=== PATIENT | male | born 1950 | race Caucasian/White ===

== ENCOUNTER 2022-10-23 09:04 | Day surgery (SDC) | payer OTHER, SELFPAY ==
[2022-10-23] VITALS (7 sets, daily range): BP systolic 108–167; BP diastolic 62–79; PULSE 55–82; RESP 16–20; TEMP 36.1–36.8; O2SAT 96–98; BMI 25.0
[2022-10-23 09:38] LABS: Glucose, Whole Blood 274 mg/dL (60-115)
[2022-10-23] MEDS: Lactated Ringers 1,000 ML 100 ML IVCONT (09:52)
[2022-10-23] MEDS: Insulin Lispro 100 UNIT/ML 3 ML VIAL SUBCUT (09:52)
--- NOTE | 2022-10-23 10:01 | P.CONAN_ITS ---
[facility] Past Medical History Medical History (Updated 10/22/22 @ 13:19 by Jeri Lowe RN) Carotid arterial disease Coronary artery disease Diabetes Elevated cholesterol HFrEF (heart failure with reduced ejection fraction) HTN (hypertension) ICD (implantable cardioverter-defibrillator) in place Insulin pump in place Peripheral artery disease TIA (transient ischemic attack) Family History Family history of problems with anesthesia: No Surgical History Surgical History (Updated 10/22/22 @ 13:19 by Jeri Lowe RN) History of intravascular stent placement History of left-sided carotid endarterectomy Hx of CABG History of Problems with Anesthesia: No Social History Social History Patient Tobacco Use Status: Former Tobacco user Are you DNR?: No Advance Directives: No Advance Directives Information Provided: Yes Recently lost weight without trying: Yes How much weight loss: 24-33 pounds Meds Allergies Allergy/AdvReac Type Severity Reaction Status Date / Time Sulfa (Sulfonamide Allergy Unknown Verified 10/22/22 13:26 Antibiotics) Active Medications: Current Medications Lactated Ringer's (Lr) 1,000 mls @ 100 mls/hr IVCONT .Q10H RADHA Last Admin: 10/23/22 09:52 Dose: 100 mls/hr Home Medications Medication Instructions Recorded Confirmed Last Taken Type Novolog U-100 Insulin aspart 90 units subcut (via wearable 10/22/22 10/22/22 Unknown History injectr) DAILY amlodipine 5 mg tablet 5 mg PO DAILY 10/22/22 10/22/22 10/23/22 History aspirin 81 mg tablet,delayed 81 mg PO DAILY 10/22/22 10/22/22 10/15/22 History release cetirizine 10 mg tablet 10 mg PO DAILY 10/22/22 10/22/22 Unknown History clopidogrel 75 mg tablet 75 mg PO DAILY 10/22/22 10/22/22 10/15/22 History docusate sodium 100 mg capsule 100 mg PO BID 10/22/22 10/22/22 Unknown History fluticasone propionate 50 1 spray intranasal DAILY 10/22/22 10/22/22 Unknown History mcg/actuation nasal spray,suspension furosemide 20 mg tablet 20 mg PO DAILY 10/22/22 10/22/22 Unknown History lisinopril 20 mg tablet 10 mg 10/22/22 Unknown History metoprolol succinate 50 mg 25 mg PO 10/22/22 10/22/22 Unknown History tablet,extended release 24 hr rosuvastatin 20 mg tablet 20 mg PO DAILY 10/22/22 10/22/22 Unknown History Exam Exam Date and Time: October 23, 2022 1001 Height,Weight and Vital Signs: Height 6 ft 2 in Weight 88.451 kg Last Vital Signs Temp 96.9 F 10/23/22 09:34 Pulse 82 10/23/22 09:34 Resp 20 10/23/22 09:34 BP 167/73 H 10/23/22 09:34 Pulse Ox 97 10/23/22 09:34 O2 Del Method Room Air 10/23/22 09:34 Pertinent Lab Results Pertinent Lab Results: Laboratory Tests 10/23/22 09:35 POC Glucose 274 H Airway Mallampati Class: III TM Dist: >3cm Neck ROM: Full Assessment and Plan Assessment Anesthesia Assessment: Anesthesia Plan Discussed and Chart Reviewed Final Anesthetic Review Family History of Problems with Anesthesia: No History of Problems with Anesthesia: No NPO: Yes ASA Class: III Final Preanesthetic Review: No Changes in Pt Med Stat, Meds/Allgs Chart Reviewed, Consent Obtained/Reviewed and Anes Risks/Benef Reviewed Patient Risk: High Procedure Risk: Low Anesthetic Plan Anesthetic Plan: MAC: Disposition: Standard PACU
--- NOTE | 2022-10-23 10:33 | MHC.SHP ---
Pre-Procedural Eval Section A Date of Service: 10/23/22 The patient is an INPATIENT: No Changes since office visit: No Cold of Flu in the past 2 weeks, No New Medical Problems, No Changes in Medication and No Patient answered all questions The History & Physical has been completed within 30 days and I have reviewed it.: Yes Section B Chief Complaint: Hemorrhage of anus and rectum Allergies: Allergies Allergy/AdvReac Type Severity Reaction Status Date / Time Sulfa (Sulfonamide Allergy Unknown Verified 10/22/22 13:26 Antibiotics) Plan I have reviewed the history and physical and performed a pertinent physical examination on my patient. No changes have occurred unless specified. Time Spent With Patient Time: Total time managing care of this patient today ____ minutes.
--- NOTE | 2022-10-23 11:51 | P.BOP_ITS ---
Brief Operative Note Date of Service: 10/23/22 Pre-op diagnosis: gi bleeding rectal mass Post-op diagnosis: same Procedure: colonoscopy Surgeon: Zach Pereira Anesthesia: MAC Was an Parts Product Analyst used for this Procedure?: No Estimated blood loss (mL): 25 Pathology: other Condition: stable Disposition: PACU
--- NOTE | 2022-10-23 12:07 | OP_ITS ---
DATE OF SERVICE: 10/23/2022 SURGEON: Zach Pereira MD INDICATIONS: Rectal bleeding and rectal mass palpated on digital examination. PREOPERATIVE DIAGNOSIS: POSTOPERATIVE DIAGNOSIS: PROCEDURE PERFORMED: Colonoscopy to the terminal ileum with biopsy and snare polypectomy. ESTIMATED BLOOD LOSS: COMPLICATIONS: ANESTHESIA: Monitored anesthesia care. ASSISTANTS: SPECIMENS: DESCRIPTION OF PROCEDURE: A history and physical were performed. The risks and benefits of the procedure were explained to the patient. Informed consent was obtained. The patient was placed in the left lateral decubitus position. A digital rectal exam was remarkable for a palpable rectal mass, measuring approximately 2.5 cm, involving the distal anus and rectum at the 9 o'clock position. The Olympus pediatric video colonoscope was introduced into the rectum and advanced to the cecum. The cecum was identified by transillumination, palpation, and identification of ileocecal valve. Examination was performed and the scope was removed. He tolerated the procedure well and was taken to recovery room in stable condition. FINDINGS: The terminal ileum was examined and appeared normal. The visualized colonic mucosa was normal. Multiple polyps were present. In the cecum was a 6 mm polyp, removed with a cold snare; at 70 cm was a 5 mm polyp also removed with a cold snare. The polyp measuring approximately 10 mm at 30 cm was removed with a hot snare. The rectal mass was identified endoscopically. This appeared to involve the last part of the rectum to the anal sphincter. There was associated heaped up mucosa and ulceration and some oozing prior to any biopsies being obtained. Multiple biopsies were obtained from the lesion. There was some oozing at the end of the procedure that was controlled with cautery, using the tip of the snare and the gold probe. IMPRESSION: 1. Colon polyps. 2. Rectal mass. RECOMMENDATION: Follow up the biopsy results. MD JOSE Rocha/HILARIO / [id number]
== END 2022-10-23 13:35 | disposition home or self-care (01) ==
PROVIDERS: PCP Internal Medicine; Visit Provider Internal Medicine Gastroenterology
PROC: 0DJD8ZZ Inspection of Lower Intestinal Tract, Via Natural or Artificial Opening Endoscopic (ICD-10-PCS; CPT 45378; principal; 2022-10-23 10:10)
DX: K62.5 Hemorrhage of anus and rectum (principal); C20 Malignant neoplasm of rectum; D12.6 Benign neoplasm of colon, unspecified; E11.9 Type 2 diabetes mellitus without complications; I11.0 Hypertensive heart disease with heart failure; I50.20 Unspecified systolic (congestive) heart failure; Z79.82 Long term (current) use of aspirin; Z79.899 Other long term (current) drug therapy; Z96.41 Presence of insulin pump (external) (internal); Z88.2 Allergy status to sulfonamides
CPT/HCPCS: 45385; 45380; 82947; 88305; 88341; 88342

== ENCOUNTER → 2022-10-30 11:15 | Outpatient (BNV) | payer MEDICARE, MEDICAID, SELFPAY | PROVIDERS: PCP Internal Medicine; Visit Provider Internal Medicine Medical Oncology | DX: C20 Malignant neoplasm of rectum (principal) | CPT/HCPCS: 99204; 99214 ==

== ENCOUNTER 2022-11-05 14:03 | Outpatient (AMB) | payer OTHER, SELFPAY ==
[2022-11-05 14:14] VITALS: BP 106/53; PULSE 71
--- NOTE | 2022-11-05 14:14 | MHC.OFFVIS ---
Intake Vital Signs 11/05/22 14:14 Height 6 ft 2 in BP 106/53 L Blood Pressure Location Rt brachial Position Sitting Pulse 71 Intake Visit Reasons: rectal carcinoma Intake Note: This patient presents for an assessment for rectal carcinoma. Patient c/o; rectal pain, painful bowel movements, rectal bleeding, weight lost, describes feeling weakness, pain. [employer] Required: No Accompanied by: Self / Same As Patient Allergies Sulfa (Sulfonamide Antibiotics) Allergy (Verified 10/30/22 11:26) Unknown Medication List - Last Reviewed 11/05/22 by CLAUS Pate amlodipine 5 mg PO DAILY aspirin 81 mg PO DAILY cetirizine 10 mg PO DAILY clopidogrel 75 mg PO DAILY docusate sodium 100 mg PO BID fluticasone propionate 50 mcg/actuation 1 spray intranasal DAILY furosemide 20 mg PO DAILY lisinopril 10 mg PO DAILY metoprolol succinate ER 25 mg PO DAILY [Novolog U-100 Insulin aspart 90 multiple units subcut (via wearable injectr) DAILY] oxycodone-acetaminophen 5-325 mg (Percocet) 1 tab PO Q6H PRN rosuvastatin 20 mg PO DAILY HPI rectal carcinoma HPI Details 52-year-old male here for a squamous cell carcinoma of the rectum. He says that he has been feeling unwell for about 6 months now. He describes this as some vague weakness and malaise. He says that for about the past 3-4 months, he has been feeling in in the rectum. He had been noticing some passage of blood per rectum as long as increasing pain with bowel movements. He eventually had colonoscopy done by Dr. Pereira last 10/23/2022. This showed a mass in the anorectal area biopsy showed squamous cell carcinoma. He was therefore referred to me. He is a known diabetic and he says that he has been a diabetic for 30 years. He has had increasing weakness overall and says he now uses a wheelchair for when he gets out of the house although he does walk slowly within the house. He says he may have lost about 40 lb the past 6 months. [facility] Medical History (Updated 11/05/22 @ 15:56 by Leonardo Ma MD) Carotid arterial disease Coronary artery disease Diabetes Elevated cholesterol HFrEF (heart failure with reduced ejection fraction) HTN (hypertension) ICD (implantable cardioverter-defibrillator) in place Insulin pump in place Peripheral artery disease Squamous cell carcinoma of rectum TIA (transient ischemic attack) Surgical History History of intravascular stent placement History of left-sided carotid endarterectomy Hx of CABG Family History Father Mother Social History Household Members: None Patient Tobacco Use Status: Never used Tobacco service: Yes ([employer]) Current occupational status: retired Review of Systems Const Denies chills and Denies fever(s) Card Denies chest pain, Denies dyspnea and Reports dyspnea on exertion Resp Denies cough, Denies dyspnea and Reports dyspnea on exertion GI Reports hematochezia and Reports change in bowel habits Denies hematuria and Denies difficulty urinating Musc Denies back pain and Denies limited range of motion Neuro Denies focal weakness and Denies convulsions Psych Denies depression and Denies mood swings Physical Exam Vital Signs: Last Vital Signs Pulse 71 11/05/22 14:14 BP 106/53 L 11/05/22 14:14 Const Other: On wheelchair but able to get up, appears very frail General: comfortable Resp Effort & Inspection: normal respiratory effort Cardio Rhythm: abnormal rhythm GI Other: Rectal exam - induration on the left anal verge, about 2 cm, very tender so I was unable to do a rectal exam or digital exam/anoscopy Palpation (GI): Soft to palpation, not firm and nontender Assessment & Plan Assessment & Plan (1) Squamous cell carcinoma of rectum: Code(s): C20 - Malignant neoplasm of rectum Plan: He has significant pain and tenderness in the rectum with the tumor in the anorectal area. Biopsies have shown a squamous cell carcinoma. Examination of his anal orifice shows an induration on the anal verge that appears to be extension of his tumor. Primary treatment would be radiation and chemotherapy. I will discuss this with Dr. Colmenares who is his oncologist I am going to order for an MRI of his anus and rectum. He says that enrique had a CT scan about 2 months ago and I am going to try to retrieve this as this was done in [facility]. He is actually scheduled to have a repeat CT scan in 3 days so I will going to review this as well. I will write him for some pain medications for now. Medications: New oxycodone-acetaminophen 5-325 mg (Percocet) Partial Fill upon patient request. 1 tab PO Q6H PRN 30 tabs 0RF pain Coding Level of Care Code New Pt Level 4 (93754) Diagnoses Squamous cell carcinoma of rectum C20
== END 2022-11-05 16:45 | disposition home or self-care (01) ==
PROVIDERS: PCP Internal Medicine; Visit Provider Surgery
DX: C20 Malignant neoplasm of rectum (principal)
CPT/HCPCS: 99204

== ENCOUNTER → 2022-11-05 14:03 | Outpatient (BNVA) | payer OTHER, SELFPAY | PROVIDERS: PCP Internal Medicine; Visit Provider Surgery | DX: C20 Malignant neoplasm of rectum (principal) | CPT/HCPCS: 99202 ==

== ENCOUNTER 2022-11-08 10:00 | Outpatient (REF) | payer OTHER, SELFPAY ==
--- NOTE | ~2022-11-08 | CT_ITS ---
EXAMINATION: CT CHEST, ABDOMEN AND PELVIS WITH CONTRAST CLINICAL INFORMATION: History of rectal cancer. Initial staging evaluation. COMPARISON: 08/04/2021 TECHNIQUE: Multidetector volumetric imaging was performed of the chest, abdomen and pelvis following administration of 85 mL Omnipaque 350 intravenous contrast. Oral contrast was administered. Sagittal and coronal reformatted images were obtained on the technologist's workstation. This CT examination was performed using dose optimization techniques as appropriate, variously including the following: *Automated exposure control *Adjustment of mA and/or kV according to patient size (this includes techniques or standardized protocols for targeted exams where dose is matched to indication/reason for exam; i.e. extremities or head) *Use of iterative reconstruction technique DLP: 161 mGy-cm FINDINGS: CHEST: AXILLA: No lymphadenopathy. MEDIASTINUM: Postsurgical changes of the heart. No mediastinal lymphadenopathy. No hilar lymphadenopathy. No pericardial effusion. CORONARY ARTERY CALCIFICATION: Severe. PLEURA: There is no pleural effusion. LUNGS: Right apical scarring with traction bronchiectasis bronchial wall thickening. Centrilobular emphysema. 6 mm subpleural nodule left upper lobe on image 89. 3 mm nodule left upper lobe on image 170. 3 mm nodule left upper lobe on image 205. 3 mm nodule left upper lobe on image 221. Central airways are patent. ABDOMEN AND PELVIS: ABDOMINAL AND PELVIC WALL: Unremarkable. LIVER AND BILIARY TREE: The liver is normal in size and contour. 5 mm hypodensity too small to characterize. No biliary ductal dilatation. GALLBLADDER: Unremarkable. PANCREAS: Parenchymal calcifications. Diffuse atrophy. Calcified collection measuring 5.0 x 7.1 cm likely representing a chronic pseudocyst. SPLEEN: Not enlarged. ADRENAL GLANDS: No adrenal mass. KIDNEYS AND URETERS: The kidneys are symmetric in size and enhancement. 2 mm nonobstructing calculus lower pole right kidney. 5 mm nonobstructing calculus lower pole left kidney. 8 mm hypodensity too small to characterize lower pole left kidney. No hydronephrosis or perinephric stranding. GASTROINTESTINAL TRACT: There is irregular rectal wall thickening and mucosal hyperenhancement. Copious stool throughout the colon. No small bowel obstruction. Appendix is within normal limits. VASCULAR: Marked atherosclerotic changes of the abdominal aorta and major branch vessels. Severe atherosclerotic changes extensive atheromatous plaque of the superior mesenteric artery. Severe calcifications at the origin of bilateral renal arteries. No abdominal aortic aneurysm. LYMPH NODES: No bulky abdominal or pelvic lymphadenopathy. FREE FLUID: No free fluid. BLADDER: Unremarkable. PELVIC VISCERA: Enlarged prostate gland. OSSEOUS STRUCTURES: Moderate height loss of T9 vertebral body. Prior median sternotomy. CT/CT abdomen pelvis w IV con IMPRESSION: Irregular rectal wall thickening and mucosal hyperenhancement. Constipation. Chronic pancreatitis with likely chronic pseudocyst measuring 5.0 x 7.1 cm. Severe atherosclerotic changes and extensive atheromatous plaque of the superior mesenteric artery. Severe calcification at the origin of bilateral renal arteries. This study was not optimally performed to evaluate the vasculature. CTA would provide a better assessment. Pulmonary nodules measuring up to 6 mm. Follow-up chest CT in 3-6 months is advised. Bilateral nonobstructing renal calculi.
[2022-11-08] MEDS: iohexoL 350 MG/ML 100 ML INFUS..BTL 85 ML IV (12:31)
[2022-11-08] MEDS: Barium Sulfate Oral (Berry) 450 ML ORAL.SUSP 850 ML PO (12:32)
== END 2022-11-08 10:01 | disposition home or self-care (01) ==
LOC: HO.CT 10:00
PROVIDERS: PCP Internal Medicine; Visit Provider Internal Medicine Medical Oncology
DX: C20 Malignant neoplasm of rectum (principal)
CPT/HCPCS: 71260; 74177; Q9967

== ENCOUNTER 2022-12-07 10:58 | Outpatient (AMB) | payer OTHER, SELFPAY ==
--- NOTE | 2022-12-07 05:37 | MHC.OFFVIS ---
Intake Intake Visit Reasons: Prostatomegaly Intake Note: NEW Patient presents today to established treatment for Prostatomegaly: Meds- None Allergies to Antibiotic- Sulfa Blood Thinner- Aspirin & Furosemide PVR- 0 mL Tennis Instructor Required: No Accompanied by: Friend Allergies Sulfa (Sulfonamide Antibiotics) Allergy (Verified 12/07/22 11:10) Unknown HPI HPI Comments History of Present Illness Details Serafin is a 72-year-old male who presents today to the office to establish as a new patient for an evaluation of prostatomegaly. 12/07/2022? Serafni is present today for an evaluation of prostatomegaly. 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 I reviewed CT of the abdomen/pelvis results from 11/08/2022 revealed Irregular rectal wall thickening and mucosal hyperenhancement. Chronic pancreatitis with likely chronic pseudocyst measuring 5.0 x 7.1 cm. Severe atherosclerotic changes and extensive atheromatous plaque of the superior mesenteric artery. Severe calcification at the origin of bilateral renal arteries. This study was not optimally performed to evaluate the vasculature.? CTA would provide a better assessment. Pulmonary nodules measuring up to 6 mm. Bilateral nonobstructing renal calculi. He was diagnosed with colon cancer. He denies any troubles urinating. He denies any family history of prostate cancer. He is taking amlodipine for hypertension, and insulin for diabetes. Evaluation today?UA? leukocyte: negative; blood: negative. Post-void residual: 0 mL. Plan: PSA screening was ordered. Tele-health follow-up in 3 weeks to discuss the results. [facility] Medical History Carotid arterial disease Coronary artery disease Diabetes Elevated cholesterol HFrEF (heart failure with reduced ejection fraction) HTN (hypertension) ICD (implantable cardioverter-defibrillator) in place Insulin pump in place Peripheral artery disease Squamous cell carcinoma of rectum TIA (transient ischemic attack) Surgical History History of intravascular stent placement History of left-sided carotid endarterectomy Hx of CABG Family History Father Mother Social History Household Members: None Patient Tobacco Use Status: Never used Tobacco service: Yes ([employer]) Current occupational status: retired Review of Systems Const All systems reviewed & are unremarkable except as noted in HPI and below Reports no additional complaints Eyes Reports no additional complaints ENT Reports no additional complaints Card Denies dyspnea Resp Denies cough and Denies dyspnea GI Reports no additional complaints Musc Reports no additional complaints Skin/Breast Denies rash and Denies unusual bruising Neuro Reports no additional complaints Psych Reports no additional complaints Endo Reports no additional complaints Sajan/Lymph Reports no additional complaints Aller/Immun Reports no additional complaints Physical Exam Const General: healthy appearing, no acute distress and well developed Orientation/consciousness: patient oriented x3 HEENT Head: Yes normocephalic and Yes atraumatic Eyes Conjunctivae: conjunctivae normal Neck Neck: Yes normal visual inspection Chest Chest palpation & inspection: normal inspection of the chest Resp Effort & Inspection: normal respiratory effort Cardio Rate: regular rate GI Inspection: Yes normal to inspection Palpation (GI): Soft to palpation Skin General skin exam: no rashes or lesions noted Neuro General: patient oriented x3 Extrem General: No pedal edema Psych Appearance: grossly normal Affect: normal affect Office Procedures Post Void Residual Post Residual Void Post Void Residual (PVR): 0 55146-[id number] Void Residual by ultrasound Results AMB Urinalysis, Automated UA Leukoctes 0 Rosey/uL Last Edit by Lizy Kaba CMA on 12/07/22 11:23 UA Nitrite Negative Last Edit by Lizy Kaba CMA on 12/07/22 11:23 UA Urobilinogen 0.2 mg/dL Last Edit by Lizy Kaba CMA on 12/07/22 11:23 UA Protein 15 mg/dL Last Edit by Lizy Kaba CMA on 12/07/22 11:23 UA pH 6.0 Last Edit by Lizy Kaba CMA on 12/07/22 11:23 UA Blood 0 Sebas/uL Last Edit by Lizy Kaba CMA on 12/07/22 11:23 UA Specific [place] 1.030 Last Edit by Lizy Kaba CMA on 12/07/22 11:23 UA Ketone Positive Last Edit by Lizy Kaba CMA on 12/07/22 11:23 5 mg/dL Lizy Kaba 12/07/22 11:23 UA Bilirubin 0 mg/dL Last Edit by Lizy Kaba CMA on 12/07/22 11:23 UA Glucose 500 mg/dL Last Edit by Lizy Kaba CMA on 12/07/22 11:23 2+ Lizy Kaba 12/07/22 11:23 Results Reviewed Results Reviewed: Laboratory Last Values Urine pH (Auto) 6.0 12/07/22 11:21 Specific [place] (Auto) 1.030 12/07/22 11:21 Urine Protein (Auto) 15 mg/dL 12/07/22 11:21 Glucose (UA)(Auto) 500 mg/dL 12/07/22 11:21 Urine Ketones (Auto) Positive 12/07/22 11:21 Urine Blood (Auto) 0 Sebas/uL 12/07/22 11:21 Urine Nitrite (Auto) Negative 12/07/22 11:21 Urine Bilirubin (Auto) 0 mg/dL 12/07/22 11:21 Urine Urobilinogen (Auto) 0.2 mg/dL 12/07/22 11:21 Leukocyte Esterase (Auto) 0 Rosey/uL 12/07/22 11:21 Date of Service: 11/08/22 EXAMINATION: CT CHEST, ABDOMEN AND PELVIS WITH CONTRAST CLINICAL INFORMATION: History of rectal cancer. Initial staging evaluation.? COMPARISON: 08/04/2021 FINDINGS: CHEST: AXILLA: No lymphadenopathy.? MEDIASTINUM:? Postsurgical changes of the heart. No mediastinal lymphadenopathy.? No hilar lymphadenopathy. No pericardial effusion. CORONARY ARTERY CALCIFICATION: Severe. PLEURA: There is no pleural effusion.? LUNGS: Right apical scarring with traction bronchiectasis bronchial wall thickening. Centrilobular emphysema. 6 mm subpleural nodule left upper lobe on image 89. 3 mm nodule left upper lobe on image 170. 3 mm nodule left upper lobe on image 205. 3 mm nodule left upper lobe on image 221. Central airways are patent.? ABDOMEN AND PELVIS: ABDOMINAL AND PELVIC WALL:? Unremarkable.? LIVER AND BILIARY TREE: The liver is normal in size and contour. 5 mm hypodensity too small to characterize. No biliary ductal dilatation. GALLBLADDER: Unremarkable.? PANCREAS: Parenchymal calcifications. Diffuse atrophy. Calcified collection measuring 5.0 x 7.1 cm likely representing a chronic pseudocyst. SPLEEN: Not enlarged. ADRENAL GLANDS: No adrenal mass. KIDNEYS AND URETERS: The kidneys are symmetric in size and enhancement. 2 mm nonobstructing calculus lower pole right kidney. 5 mm nonobstructing calculus lower pole left kidney. 8 mm hypodensity too small to characterize lower pole left kidney. No hydronephrosis or perinephric stranding. GASTROINTESTINAL TRACT: There is irregular rectal wall thickening and mucosal hyperenhancement. Copious stool throughout the colon. No small bowel obstruction. Appendix is within normal limits. VASCULAR: Marked atherosclerotic changes of the abdominal aorta and major branch vessels. Severe atherosclerotic changes extensive atheromatous plaque of the superior mesenteric artery. Severe calcifications at the origin of bilateral renal arteries. No abdominal aortic aneurysm. LYMPH NODES: No bulky abdominal or pelvic lymphadenopathy. FREE FLUID: No free fluid. BLADDER: Unremarkable.? PELVIC VISCERA: Enlarged prostate gland. OSSEOUS STRUCTURES: Moderate height loss of T9 vertebral body. Prior median sternotomy. IMPRESSION: Irregular rectal wall thickening and mucosal hyperenhancement. Constipation. Chronic pancreatitis with likely chronic pseudocyst measuring 5.0 x 7.1 cm. Severe atherosclerotic changes and extensive atheromatous plaque of the superior mesenteric artery. Severe calcification at the origin of bilateral renal arteries. This study was not optimally performed to evaluate the vasculature. CTA would provide a better assessment. Pulmonary nodules measuring up to 6 mm. Follow-up chest CT in 3-6 months is advised. Bilateral nonobstructing renal calculi. Assessment & Plan Assessment & Plan (1) Screening PSA (prostate specific antigen): Code(s): Z12.5 - Encounter for screening for malignant neoplasm of prostate (2) Enlarged prostate: Code(s): N40.0 - Benign prostatic hyperplasia without lower urinary tract symptoms Plan PSA screening was ordered. Tele-health follow-up in 3 weeks to discuss the results. Orders: Orders AMB Urinalysis Automated 12/07/22 N39.0 - Urinary tract infection, site not specified, A49.9 - Bacterial infection, unspecified PSA,Total (Free>4and<10) 12/07/22 Z12.5 - Encounter for screening for malignant neoplasm of prostate AMB Post Void Residual by ultrasound 12/07/22 N39.8 - Other specified disorders of urinary system Patient Instructions: The patient had an opportunity to ask questions regarding treatment plan. All questions were answered. Imaging, Laboratory studies and physical exam results were discussed and reviewed in detail. No major barriers to understanding were identified. The patient expressed understanding and agreement with the above treatment plan.? ? ? The patient is aware they should contact our office by phone for worsening of their current condition or the appearance of new symptoms. Compliance is encouraged with any medications and followup testing that is ordered.? ? ? It is a privilege to be allowed the opportunity to participate in the urologic care of your patient. If you have any questions or concerns regarding treatment for the above conditions please do not hesitate to contact me. The office telephone contact is [phone].? ? ? This note is constructed in part using voice recognition software. While every effort has been made to ensure accuracy funeral home associate errors may have been included.? ? ? Yours sincerely,? ? ? Brennan Lyons MD? Coding Level of Care Code New Pt Level 3 (06885) Diagnoses Screening PSA (prostate specific antigen) Z12.5 Enlarged prostate N40.0 CPT Codes Post Residual Void - PVR CPT Code: 10877-Fsiq Void Residual by ultrasound ([id number])
== END 2022-12-07 11:54 | disposition home or self-care (01) ==
PROVIDERS: PCP Internal Medicine; Visit Provider Urology
DX: Z12.5 Encounter for screening for malignant neoplasm of prostate (principal); N40.0 Benign prostatic hyperplasia without lower urinary tract symptoms
CPT/HCPCS: 99203

== ENCOUNTER → 2022-12-07 10:58 | Outpatient (BNVA) | payer OTHER, SELFPAY | PROVIDERS: PCP Internal Medicine; Visit Provider Urology | DX: N39.0 Urinary tract infection, site not specified (principal); A49.9 Bacterial infection, unspecified; N40.0 Benign prostatic hyperplasia without lower urinary tract symptoms; C20 Malignant neoplasm of rectum; Z12.5 Encounter for screening for malignant neoplasm of prostate | CPT/HCPCS: 51798; 81003; 99202 ==

== ENCOUNTER 2022-12-27 13:55 | Outpatient (AMB) | payer OTHER, SELFPAY ==
--- NOTE | 2022-12-27 13:53 | MHC.OFFVIS ---
Intake Intake Visit Reasons: follow up/labs Intake Note: Patient presents today for a follow-up on Labs Results, completed on 12/12/2022 at [facility]: Meds- Furosemide Allergies to Antibiotic- Sulfa Blood Thinner- Aspirin PSA- 4.8 ng/mL, 12/12/2022 Allergies Sulfa (Sulfonamide Antibiotics) Allergy (Verified 12/27/22 14:00) Unknown Medication List - Last Reconciled 12/27/22 by Brennan Lyons MD amlodipine 5 mg PO DAILY aspirin 81 mg PO DAILY cetirizine 10 mg PO DAILY clopidogrel 75 mg PO DAILY docusate sodium 100 mg PO BID finasteride (Proscar) 5 mg PO DAILY 90 days fluticasone propionate 50 mcg/actuation 1 spray intranasal DAILY furosemide 20 mg PO DAILY lisinopril 10 mg PO DAILY metoprolol succinate ER 25 mg PO DAILY [Novolog U-100 Insulin aspart 90 multiple units subcut (via wearable injectr) DAILY] ondansetron 8 mg PO Q8H oxycodone-acetaminophen 5-325 mg (Percocet) 1 tab PO Q6H PRN rosuvastatin 20 mg PO DAILY HPI HPI Comments History of Present Illness Details Serafin is a 72-year-old male who presents today via Tele-health visit for a follow-up. 12/27/2022? Serafin is a 72-year-old male recently diagnosed with squamous cell carcinoma of the rectum. He denies any family history of prostate cancer. He is taking amlodipine for hypertension, and insulin for diabetes. He was last seen by me on 12/07/2022 for enlarged prostate. PSA screening was ordered. I reviewed the PSA results from 12/12/2022 revealed 4.8 ng/mL, and with a percent free PSA of 15.7. Review of charts:? Last visit: 12/07/2022? CT of the abdomen/pelvis results from 11/08/2022 revealed --Bilateral nonobstructing renal calculi. Irregular rectal wall thickening and mucosal hyperenhancement. 12/27/2022: Plan: Start Proscar 5 mg daily. Repeat PSA in 6 months. [facility] Medical History Squamous cell carcinoma of rectum TIA (transient ischemic attack) Peripheral artery disease Carotid arterial disease HFrEF (heart failure with reduced ejection fraction) ICD (implantable cardioverter-defibrillator) in place Coronary artery disease Elevated cholesterol HTN (hypertension) Insulin pump in place Diabetes Surgical History History of intravascular stent placement History of left-sided carotid endarterectomy Hx of CABG Family History Father Mother Social History Household Members: None Patient Tobacco Use Status: Never used Tobacco service: Yes ([employer]) Current occupational status: retired Review of Systems Const All systems reviewed & are unremarkable except as noted in HPI and below Reports no additional complaints Eyes Reports no additional complaints ENT Denies neck pain Card Denies leg edema Resp Denies cough GI Denies constipation Musc Reports no additional complaints and Denies neck pain Skin/Breast Denies rash and Denies unusual bruising Neuro Reports no additional complaints Psych Reports no additional complaints Endo Reports no additional complaints Sajan/Lymph Reports no additional complaints Aller/Immun Reports no additional complaints Assessment & Plan Assessment & Plan (1) Enlarged prostate: Code(s): N40.0 - Benign prostatic hyperplasia without lower urinary tract symptoms Plan Start Proscar 5 mg daily. Repeat PSA in 6 months. Medications: New finasteride (Proscar) 5 mg PO DAILY 90 tabs 3RF 90 days C61 - Malignant neoplasm of prostate Patient Instructions: The patient had an opportunity to ask questions regarding treatment plan. All questions were answered. Imaging, Laboratory studies and physical exam results were discussed and reviewed in detail. No major barriers to understanding were identified. The patient expressed understanding and agreement with the above treatment plan.? ? ? The patient is aware they should contact our office by phone for worsening of their current condition or the appearance of new symptoms. Compliance is encouraged with any medications and followup testing that is ordered.? ? ? It is a privilege to be allowed the opportunity to participate in the urologic care of your patient. If you have any questions or concerns regarding treatment for the above conditions please do not hesitate to contact me. The office telephone contact is [phone].? ? ? This note is constructed in part using voice recognition software. While every effort has been made to ensure accuracy auto body repairer errors may have been included.? ? ? Yours sincerely,? ? ? Brennan Lyons MD? Telehealth Telehealth Location of provider rendering services: practice address Location of patient: address on file Patient Identification confirmed using: Name, : Yes Telehealth method: voice only Patient verbally consented to treatment: Yes Patient verbally consented to billing insurance company: Yes Patient informed of any privacy concerns related to visit: Yes Minutes spent on Phone/Video with Pt.: 15 Coding Level of Care Code Tele Est Pt Level 4 (91304) Diagnoses Enlarged prostate N40.0
== END 2022-12-27 14:44 | disposition home or self-care (01) ==
LOC: HO.HUSH 13:55
PROVIDERS: PCP Internal Medicine; Visit Provider Urology
DX: N40.0 Benign prostatic hyperplasia without lower urinary tract symptoms (principal)
CPT/HCPCS: 99214

== ENCOUNTER → 2022-12-27 13:55 | Outpatient (BNVA) | payer OTHER, SELFPAY | PROVIDERS: PCP Internal Medicine; Visit Provider Urology ==

== ENCOUNTER 2023-06-26 09:46 | Outpatient (REF) | payer OTHER, SELFPAY | END 2023-06-26 09:47 | disposition home or self-care (01) | LOC: HO.LAB 09:46 | PROVIDERS: PCP Internal Medicine; Visit Provider Urology | DX: Z12.5 Encounter for screening for malignant neoplasm of prostate (principal) | CPT/HCPCS: 36415; 84153 ==

== ENCOUNTER 2023-07-03 12:31 | Outpatient (AMB) | payer OTHER, SELFPAY ==
--- NOTE | 2023-07-03 12:51 | A.OFFVIS_ITS ---
Intake Intake Visit Reasons: 5m/PSA Intake Note: Patient presents today for a follow-up on PSA labs results: PSA- 0.30 ng/mL, 06/26/2023 Meds- Furosemide Allergies to Antibiotic- Sulfa Blood Thinner- Aspirin PVR 13 mL Central Office Trouble Shooter Required: No Accompanied by: Self / Same As Patient Allergies Sulfa (Sulfonamide Antibiotics) Allergy (Verified 07/03/23 12:53) Unknown Medication List - Last Reconciled 07/03/23 by Brennan Lyons MD amlodipine 5 mg PO DAILY aspirin 81 mg PO DAILY cetirizine 10 mg PO DAILY clopidogrel 75 mg PO DAILY docusate sodium 100 mg PO BID finasteride (Proscar) 5 mg PO DAILY 90 days fluticasone propionate 50 mcg/actuation 1 spray intranasal DAILY furosemide 20 mg PO DAILY lisinopril 10 mg PO DAILY metoprolol succinate ER 25 mg PO DAILY [Novolog U-100 Insulin aspart 90 multiple units subcut (via wearable injectr) DAILY] ondansetron 8 mg PO Q8H oxycodone-acetaminophen 5-325 mg (Percocet) 1 tab PO Q6H PRN rosuvastatin 20 mg PO DAILY HPI HPI Comments History of Present Illness Details 07/03/23--Serafin is a 72-year-old male who presents today for a follow-up PSA. The patient was last seen on 12/27/2022 and started on Proscar for BPH and elevated PSA. I have reviewed with him that of recent follow-up PSA performed on 06/26/2023 0.30. The patient denies any urinary complaints. Bladder scan PVR is 13 mL. Plan is to continue the proscar 5 mg daily and follow-up in 1 year with PSA screening and renal US. During today's visit the patient is enquiring on upgrading his insulin pump. I will refer him to Endocrine Review of chart: 12/27/2022? Serafin is a 72-year-old male recently diagnosed with squamous cell carcinoma of the rectum. He denies any family history of prostate cancer. He is taking amlodipine for hypertension, and insulin for diabetes. He was last seen by me on 12/07/2022 for enlarged prostate. PSA screening was ordered. I reviewed the PSA results from 12/12/2022 revealed 4.8 ng/mL, and with a percent free PSA of 15.7. Start Proscar 5 mg daily. Repeat PSA in 6 months. Last visit: 12/07/2022? CT of the abdomen/pelvis results from 11/08/2022 revealed --Bilateral nonobstructing renal calculi. Irregular rectal wall thickening and mucosal hyperenhancement. 07/03/2023-- Plan: Continue Proscar 5 mg daily. Referral to Endocrine. PSA screening and renal US in 1 year [facility] Medical History Squamous cell carcinoma of rectum TIA (transient ischemic attack) Peripheral artery disease Carotid arterial disease HFrEF (heart failure with reduced ejection fraction) ICD (implantable cardioverter-defibrillator) in place Coronary artery disease Elevated cholesterol HTN (hypertension) Insulin pump in place Diabetes Surgical History History of intravascular stent placement History of left-sided carotid endarterectomy Hx of CABG Family History Father Mother Social History Household Members: None Patient Tobacco Use Status: Never used Tobacco service: Yes ([employer]) Current occupational status: retired Review of Systems Const All systems reviewed & are unremarkable except as noted in HPI and below Reports no additional complaints Eyes Reports no additional complaints ENT Reports no additional complaints Card Denies dyspnea Resp Denies cough and Denies dyspnea GI Reports no additional complaints Musc Reports no additional complaints Skin/Breast Denies rash and Denies unusual bruising Neuro Reports no additional complaints Psych Reports no additional complaints Endo Reports no additional complaints Sajan/Lymph Reports no additional complaints Aller/Immun Reports no additional complaints Office Procedures Post Void Residual Post Residual Void Post Void Residual (PVR): 13 13810-Ritl Void Residual by ultrasound Results AMB Urinalysis, Automated UA Leukoctes 0 Rosey/uL Last Edit by Chuy Ibarra A on 07/03/23 13:17 UA Nitrite Negative Last Edit by Chuy Ibarra [facility] on 07/03/23 13:17 UA Urobilinogen 3.0 mg/dL Last Edit by Chuy Ibarra A on 07/03/23 13:1 7 UA Protein 15 mg/dL Last Edit by Chuy Ibarra [facility] on 07/03/23 13:17 UA pH 5.0 Last Edit by Chuy Ibarra A on 07/03/23 13:17 UA Blood 0 Sebas/uL Last Edit by Chuy Ibarra [facility] on 07/03/23 13:17 UA Specific [place] 1.025 Last Edit by Chuy Ibarra [facility] on 07/03/23 13: 17 UA Ketone Positive Last Edit by Chuy Ibarra [facility] on 07/03/23 13:17 UA Bilirubin 0 mg/dL Last Edit by Chuy Ibarra [facility] on 07/03/23 13:17 UA Glucose 0 mg/dL Last Edit by Chuy Ibarra [facility] on 07/03/23 13:17 Results Reviewed Results Reviewed: Laboratory Last Values Urine pH (Auto) 5.0 07/03/23 13:02 Specific [place] (Auto) 1.025 07/03/23 13:02 Urine Protein (Auto) 15 mg/dL 07/03/23 13:02 Glucose (UA)(Auto) 0 mg/dL 07/03/23 13:02 Urine Ketones (Auto) Positive 07/03/23 13:02 Urine Blood (Auto) 0 Sebas/uL 07/03/23 13:02 Urine Nitrite (Auto) Negative 07/03/23 13:02 Urine Bilirubin (Auto) 0 mg/dL 07/03/23 13:02 Urine Urobilinogen (Auto) 3.0 mg/dL 07/03/23 13:02 Leukocyte Esterase (Auto) 0 Rosey/uL 07/03/23 13:02 Assessment & Plan Assessment & Plan (1) Enlarged prostate: Code(s): N40.0 - Benign prostatic hyperplasia without lower urinary tract symptoms (2) Screening PSA (prostate specific antigen): Code(s): Z12.5 - Encounter for screening for malignant neoplasm of prostate (3) Diabetes: Code(s): E11.9 - Type 2 diabetes mellitus without complications (4) Bilateral kidney stones: Code(s): N20.0 - Calculus of kidney Plan Continue Proscar 5 mg daily. Referral to Endocrine. PSA screening in 1 year Orders: Orders AMB Post Void Residual by ultrasound Today N39.8 - Other specified disorders of urinary system AMB Urinalysis Automated Today Z13.9 - Encounter for screening, unspecified PSA,Total (Free>4and<10) 10 Months N40.0 - Benign prostatic hyperplasia without lower urinary tract symptoms, Z12.5 - Encounter for screening for malignant neoplasm of prostate US renal BI 10 Months N20.0 - Calculus of kidney Referrals Endocrinology Referral E11.9 - Type 2 diabetes mellitus without complications Medications: Refilled finasteride (Proscar) 5 mg PO DAILY 90 tabs 3RF 90 days C61 - Malignant neoplasm of prostate Patient Instructions: The patient had an opportunity to ask questions regarding treatment plan. All questions were answered. Laboratory studies and physical exam results were discussed and reviewed in detail. No major barriers to understanding were identified. The patient expressed understanding and agreement with the above treatment plan. The patient is aware they should contact our office by phone for worsening of their current condition or the appearance of new symptoms. Compliance is encouraged with any medications and followup testing that is ordered. It is a privilege to be allowed the opportunity to participate in the urologic care of your patient. If you have any questions or concerns regarding treatment for the above conditions please do not hesitate to contact me. The office telephone contact is [phone]. This note is constructed in part using voice recognition software. While every effort has been made to ensure accuracy subway car repairer errors may have been in cluded. Yours sincerely, Brennan Lyons MD Coding Level of Care Code Est Pt Level 4 (59058) Diagnoses Enlarged prostate N40.0 Screening PSA (prostate specific antigen) Z12.5 Diabetes E11.9 Bilateral kidney stones N20.0 CPT Codes Post Residual Void - PVR CPT Code: 70281-Asbg Void Residual by ultrasound ([id number])
== END 2023-07-03 13:57 | disposition home or self-care (01) ==
PROVIDERS: PCP Internal Medicine; Referring Provider Internal Medicine; Visit Provider Urology
DX: N40.0 Benign prostatic hyperplasia without lower urinary tract symptoms (principal); Z12.5 Encounter for screening for malignant neoplasm of prostate; E11.9 Type 2 diabetes mellitus without complications; N20.0 Calculus of kidney; Z13.9 Encounter for screening, unspecified
CPT/HCPCS: 99214

== ENCOUNTER → 2023-07-03 12:31 | Outpatient (BNVA) | payer OTHER, SELFPAY | PROVIDERS: PCP Internal Medicine; Visit Provider Urology | DX: N40.0 Benign prostatic hyperplasia without lower urinary tract symptoms (principal); N20.0 Calculus of kidney; E11.9 Type 2 diabetes mellitus without complications; Z12.5 Encounter for screening for malignant neoplasm of prostate | CPT/HCPCS: 51798; 81003; 99212 ==

== ENCOUNTER 2023-08-21 23:14 | Inpatient (IN) | payer OTHER, SELFPAY ==
--- NOTE | 2023-08-21 | ECG_ITS ---
Test Reason : WEAKNESS Blood Pressure : / mmHG Vent. Rate : 062 BPM Atrial Rate : 062 BPM P-R Int : 184 ms QRS Dur : 088 ms QT Int : 452 ms P-R-T Axes : -12 -75 107 degrees QTc Int : 458 ms Normal sinus rhythm Left anterior fascicular block Septal infarct , age undetermined Abnormal ECG No previous ECGs available Referred By: Generic ED Physician Electronically Signed By:Aleksandr Holland
--- NOTE | ~2023-08-21 | CT_ITS ---
EXAMINATION: CT ABDOMEN AND PELVIS WITH CONTRAST CLINICAL INFORMATION: Reason for Exam rectal mass on digital exam, hx colon ca COMPARISON: 11/08/2022 TECHNIQUE: Multidetector volumetric images were obtained from the superior aspect of the liver through the pubic symphysis following administration 85 mL of Omnipaque 350 intravenous contrast. Sagittal and coronal reformatted images were obtained on the technologist's workstation. Oral contrast: No This CT examination was performed using dose optimization techniques as appropriate, variously including the following: *Automated exposure control *Adjustment of mA and/or kV according to patient size (this includes techniques or standardized protocols for targeted exams where dose is matched to indication/reason for exam; i.e. extremities or head) *Use of iterative reconstruction technique DLP: 537 mGy-cm FINDINGS: LUNG BASES: Limited evaluation due to motion artifact. Small pleural effusions. There is also suggestion of a small amount of loculated fluid anteriorly at the left base. Subsegmental bibasilar atelectasis/scarring. Coronary artery calcifications are present. LIVER, GALLBLADDER, AND BILIARY TREE: Liver demonstrates heterogeneous attenuation. Subcentimeter hypodensity in the anterior left hepatic lobe is nonspecific and without malignant change from prior. No intrahepatic biliary ductal dilatation. Gallbladder is grossly unremarkable. PANCREAS: Pancreas appears diffusely atrophic with multiple calcifications, consistent with chronic pancreatitis. There is a redemonstrated peripherally calcified low-density structure in the region of the lesser sac measuring approximately 7.0 x 4.9 cm, without significant change from prior and suspicious for a pseudocyst. SPLEEN: Unremarkable. ADRENAL GLANDS: Unremarkable. KIDNEYS AND URETERS: There is a right ureterovesicular junction calculus measuring 4 mm without significant hydronephrosis. Bilateral nephrograms appear symmetric. No left hydronephrosis. BLADDER: Mildly distended with diffuse mural prominence. GASTROINTESTINAL TRACT: Large amount of stool is present throughout the colon. The distalmost rectum is collapsed which limits evaluation for wall thickening or mass. Perirectal stranding is noted. No abnormal small bowel dilation. The appendix is unremarkable. No free air is seen. ABDOMINAL WALL: No significant hernia is appreciated. LYMPH NODES: Normal. VASCULAR: There is atherosclerotic calcification along the aorta and iliac arteries. PELVIC VISCERA: Unremarkable. OSSEOUS STRUCTURES: Unremarkable. CT/CT abdomen pelvis w IV con IMPRESSION: 1. Large amount of stool throughout the colon. Distalmost rectum is collapsed which limits evaluation for wall thickening or mass. Given the amount of stool in the colon, the possibility of an obstructive process in the distal rectum cannot be excluded Perirectal stranding is noted, which could reflect stercoral colitis in the proper clinical setting. 2. Right ureterovesicular junction calculus measuring 4 mm without significant hydronephrosis. 3. Diffuse mural prominence of the urinary bladder, which could be due to underdistention versus cystitis. 4. Small pleural effusions. Suggestion of a small amount of loculated fluid anteriorly at the left lung base. 5. Redemonstrated peripherally calcified low-density structure in the region of the lesser sac, suspicious for a pseudocyst in the setting of chronic pancreatitis.
--- NOTE | ~2023-08-21 | CT_ITS ---
EXAMINATION: CT HEAD WITH CONTRAST CLINICAL INFORMATION: History of tumor resection. Difficulty COMPARISON: None available. TECHNIQUE: Contiguous axial imaging was performed from the skull base to vertex following the administration of 100 mL of Omnipaque [address] examination was performed using dose optimization techniques as appropriate, variously including the following: *Automated exposure control *Adjustment of mA and/or kV according to patient size (this includes techniques or standardized protocols for targeted exams where dose is matched to indication/reason for exam; i.e. extremities or head) *Use of iterative reconstruction technique DLP: 729 mGy-cm FINDINGS: Postsurgical change to the left occipital bone. There is adjacent encephalomalacia but no recurrent mass or area of abnormal enhancement in the left posterior fossa. There is normal contrast enhancement elsewhere within normal contrast enhancement in the region of the [place]. No intra or extra-axial fluid collection, hemorrhage, mass, or mass effect. Sulci and ventricles are slightly prominent with moderate deep white matter gliosis noted. No areas of abnormal enhancement observed. CT/CT head/brain w IV con IMPRESSION: No acute findings. Postsurgical change noted. No evidence for recurrent tumor in the left posterior fossa.
--- NOTE | ~2023-08-21 | XR_ITS ---
EXAMINATION: XR CHEST CLINICAL INFORMATION: Weakness, cough COMPARISON: 11/08/2022 TECHNIQUE: 2 views of the chest were obtained. FINDINGS: Left-sided pacemaker/AICD lead tips overlie the right atrium and right ventricle. Sternal wires are present. Lung volumes are symmetric. No focal consolidation is seen. No evidence of pneumothorax, pleural effusion, or pulmonary edema. Cardiac size is within normal limits. Calcification is present at the aortic arch. Partial superior endplate compression at T9 is unchanged from prior. Peripherally calcified structure in the upper abdomen suspicious for chronic pseudocyst, as noted on prior CT. XR/XR chest 2V IMPRESSION: No acute cardiopulmonary findings.
[2023-08-21 23:28] VITALS: BP 122/62; BP 130/70; PULSE 66; PULSE 67; RESP 18; TEMP 36.7; O2SAT 96; O2SAT 97; BMI 22.9
[2023-08-21 23:58] LABS: MANUAL DIFF FLAG NO
[2023-08-21 23:59] LABS: Eosinophils Absolute Auto 0.3 X10*3/uL (0.0-0.4); Eosinophils Percent Auto 6.5 % (0-4); Hematocrit 34.2 % (42.0-52.0); Hemoglobin 11.3 g/dl (14.0-18.0); Imm Gran Abs Auto 0.01 X10*3/uL (0.00-0.03); Imm Gran Pct Auto 0.2 % (0.0-0.4); Lymphocytes Absolute Auto 0.3 X10*3/uL (1.2-4.9); Lymphocytes Percent Auto 7.2 % (20-40); Mean Corpuscular Hemoglobin 28.5 pg (27.0-33.0); Mean Corpuscular Volume 86.1 fL (80.0-98.0); Mean Platelet Volume 9.8 fL (9.4-12.4); Monocytes Absolute Auto 0.4 X10*3/uL (0.1-1.2); Neutrophils Percent Auto 74.1 % (45-73); Platelet Count 107 X10*3/uL (160-400); Red Blood Count 3.97 X10*6/uL (4.60-5.80); Red Cell Distribution Width 15.7 % (11.0-16.0)
[2023-08-22] VITALS (12 sets, daily range): BP systolic 130–165; BP diastolic 45–85; PULSE 57–67; RESP 15–17; TEMP 36.2–36.8; O2SAT 94–99; BMI 22.6
[2023-08-22 00:20] LABS: Alanine Aminotransferase 14 U/L (0-40); Albumin Level 3.8 g/dL (3.5-5.0); Alkaline Phosphatase 63 U/L (39-117); Anion Gap 15 (12-20); Aspartate Amino Transferase 17 U/L (5-37); Bilirubin Total 0.8 mg/dL (0.0-1.0); Blood Urea Nitrogen 15 mg/dL (9-16); Calcium 9.3 mg/dL (8.4-10.2); Carbon Dioxide 21 mmol/L (22-29); Chloride 107 mmol/L (96-108); Creatinine Clr Calc Pharmacy 112.4; Estimated Glomerular Filt Rate > 60; Glucose Random 90 mg/dL (60-115); Potassium 4.1 mmol/L (3.3-5.1); Sodium 139 mmol/L (135-145); Total Protein 6.3 g/dL (6.5-8.0)
[2023-08-22 00:23] LABS: Troponin-I High Sensitivity 8.9 ng/L (<3.5-35.0)
[2023-08-22 02:33] LABS: OBS Int Ctl Valid YES; OBS1 NEGATIVE (NEGATIVE)
--- NOTE | 2023-08-22 03:01 | ED_ITS ---
HPI - Weakness General Chief complaint: Weakness Stated complaint: INCREASED WEAKNESS HX COLON CANCER Time Seen by Provider: 08/22/23 01:34 Source: patient Mode of arrival: EMS History of Present Illness HPI Narrative: This is a 72-year-old male with recent history what he thinks is colon CA and has currently been treated at the [facility] with both oral and radiation treatment, he states his last session was February 2023. He is unsure if he is considered to be in remission, but states that he has been having increased weakness as well as weight loss over the past months since his last treatment he is also noted to be stumbling and having significant discomfort on defecation but this has been somewhat alleviated by the use MiraLax to soften the stools he denies any rectal bleeding. Related Data Home Medications ?Medication ?Instructions ?Recorded ?Confirmed Novolog U-100 Insulin aspart 90 units subcut (via wearable 10/22/22 07/03/23 injectr) DAILY amlodipine 5 mg tablet 5 mg PO DAILY 10/22/22 08/22/23 aspirin 81 mg tablet,delayed 81 mg PO DAILY 10/22/22 08/22/23 release cetirizine 10 mg tablet 10 mg PO DAILY 10/22/22 08/22/23 clopidogrel 75 mg tablet 75 mg PO DAILY 10/22/22 08/22/23 docusate sodium 100 mg capsule 100 mg PO BID 10/22/22 08/22/23 fluticasone propionate 50 1 spray intranasal DAILY 10/22/22 07/03/23 mcg/actuation nasal spray,suspension furosemide 20 mg tablet 20 mg PO DAILY 10/22/22 07/03/23 lisinopril 20 mg tablet 10 mg PO DAILY 10/22/22 08/22/23 metoprolol succinate 50 mg 25 mg PO DAILY 10/22/22 08/22/23 tablet,extended release 24 hr rosuvastatin 20 mg tablet 20 mg PO DAILY 10/22/22 08/22/23 gabapentin 100 mg capsule 200 mg PO DAILY PRN Muscle Spasm 08/22/23 08/22/23 Previous Rx's ?Medication ?Instructions ?Recorded ondansetron 8 mg disintegrating 8 mg PO Q8H #60 tabs 11/20/22 tablet oxycodone-acetaminophen 5 mg-325 1 tab PO Q6H PRN pain #25 tabs 02/13/23 mg tablet (Percocet) finasteride 5 mg tablet (Proscar) 5 mg PO DAILY 90 days #90 tabs 07/03/23 Allergies Allergy/AdvReac Type Severity Reaction Status Date / Time Sulfa (Sulfonamide Allergy Unknown Verified 08/21/23 23:30 Antibiotics) Review of Systems 2 Review of Systems: Pertinent positives and negatives as stated in [facility] Past Medical History Source: nursing notes reviewed Medical History Squamous cell carcinoma of rectum TIA (transient ischemic attack) Peripheral artery disease Carotid arterial disease HFrEF (heart failure with reduced ejection fraction) ICD (implantable cardioverter-defibrillator) in place Coronary artery disease Elevated cholesterol HTN (hypertension) Insulin pump in place Diabetes Surgical History History of intravascular stent placement History of left-sided carotid endarterectomy Hx of CABG Family History Family History Father Mother Social History Social History Household Members: None Alcohol intake: former Patient Tobacco Use Status: Never used Tobacco Smoked in Last 30 Days: No Use of substances other than those prescribed or required for medical reasons: No Advance Directives: No Advance Directives Information Provided: Yes service: Yes ([employer]) Current occupational status: retired Physical Exam 2 Vital Signs: Vital Signs: Last Vital Signs Temp 97.5 F 08/22/23 06:08 Pulse 60 08/22/23 06:08 Resp 17 08/22/23 06:08 BP 134/69 08/22/23 06:08 Pulse Ox 97 08/22/23 06:08 O2 Del Method Room Air 08/22/23 06:08 BMI result Body Mass Index 22.9 VITAL SIGNS: Reviewed. GENERAL: Cachectic, in no acute distress. HEAD: Normocephalic/atraumatic EYES: PERRLA, EOMI EARS: Ext canals without abnormality NOSE: Nares patent bilateral OROPHARYNX: no oral lesions noted, posterior pharynx clear NECK: Supple, no adenopathy LUNGS: Normal breath sounds. No adventitious sounds or accessory muscle use. SpO2<99> CARDIOVASCULAR: Regular rate and rhythm without noted murmurs ABDOMEN: Soft, non-tender, non-distended with bowel sounds. ANORECTAL: Soft yellowish stool, small hardened area/mass noted at the left 3 o'clock position that is tender on palpation MUSCULOSKELETAL: No tenderness, deformities, or effusions noted on gross inspection. EXTREMITIES: No cyanosis, clubbing or edema. SKIN: Inspection of the skin reveals no rashes NEUROLOGIC: Alert and oriented x 4. Strength and sensation to light touch were grossly intact x 4. Medications Administered Discontinued Medications Generic Name Dose Route Start Last Admin Trade Name Freq PRN Reason Stop Dose Admin Sodium Chloride 1,000 mls @ 999 mls/hr 08/22/23 03:15 08/22/23 05:00 Ns IV 08/22/23 04:15 Infused .Q1H1M RADHA Infusion Iohexol 85 ml 08/22/23 03:35 08/22/23 03:37 Iohexol 350 Mg/Ml 100 Ml Infus..Btl IV 08/22/23 03:36 85 ml ONCE ONE Administration Medical Decision Making Medical Decision Making [facility] Narrative: 72-year-old male with history and clinical presentation, DDX: Physical deconditioning, possibly secondary to increased tumor burden but will rule out dehydration/electrolyte or renal issues. Reviewed all investigations and patient has a mild leukopenia with chronically stable normocytic anemia/chronically stable thrombocytopenia. Chemistry indices are negative for JESSICA/electrolyte or liver enzyme derangements. Urinalysis negative for UTI or hematuria. Stool guaiac negative. Chest x-ray negative for infiltrate or venous congestion and otherwise my interpretation is in agreement with radiology's impression. CT scan significant for a large amount of stool throughout the colon although distally collapsed there is noted perirectal stranding. 0626: I have discussed case with General surgery, Dr. Ma, who will see the patient in the emergency room. Differential Diagnosis Differential Diagnoses: The differential diagnosis associated with the presentation includes Please see the discussion above Admission/Observation Consideration of admission/observation: Escalation of care including admission/observation considered Please see the discussion above Consult Healthcare Provider Management of the patient was discussed with: Gas Reverser Please see the discussion above Lab Data [facility] Lab Attestation statement: I reviewed the patient's lab results. Please see the discussion above 08/21/23 23:54 08/21/23 23:54 Labs: Lab Results 08/21/23 08/22/23 08/22/23 Range/Units 23:54 02:24 03:04 WBC 4.0 L (4.8-10.8) X10*3/uL RBC 3.97 L (4.60-5.80) X10*6/uL Hgb 11.3 L (14.0-18.0) g/dl Hct 34.2 L (42.0-52.0) % MCV 86.1 (80.0-98.0) fL MCH 28.5 (27.0-33.0) pg MCHC 33.0 (31.0-36.0) g/dl RDW 15.7 (11.0-16.0) % Plt Count 107 L (160-400) X10*3/uL MPV 9.8 (9.4-12.4) fL Immature Gran % (Auto) 0.2 (0.0-0.4) % Neut % (Auto) 74.1 H (45-73) % Lymph % (Auto) 7.2 L (20-40) % [place] % (Auto) 11.0 (2-11) % Eos % (Auto) 6.5 H (0-4) % Baso % (Auto) 1.0 (0-2) % Lymph # (Auto) 0.3 L (1.2-4.9) X10*3/uL [place] # (Auto) 0.4 (0.1-1.2) X10*3/uL Eos # (Auto) 0.3 (0.0-0.4) X10*3/uL Baso # (Auto) 0.0 (0.0-0.2) X10*3/uL Abs Immat Gran (auto) 0.01 (0.00-0.03) X10*3/uL Absolute Neuts (auto) 3.0 (2.0-8.3) x10*3/uL Absolute Nucleated RBC 0.000 (0.0-0.012) X10*3/uL Nucleated RBC % (auto) 0.0 (0.0-0.2) /100WBC Sodium 139 (135-145) mmol/L Potassium 4.1 (3.3-5.1) mmol/L Chloride 107 (96-108) mmol/L Carbon Dioxide 21 L (22-29) mmol/L Anion Gap 15 (12-20) BUN 15 (9-16) mg/dL Creatinine 0.67 (0.5-1.4) mg/dL Estim Creat Clear Calc 112.4 Estimated GFR > 60 Random Glucose 90 (60-115) mg/dL Calcium 9.3 (8.4-10.2) mg/dL Total Bilirubin 0.8 (0.0-1.0) mg/dL AST 17 (5-37) U/L ALT 14 (0-40) U/L Alkaline Phosphatase 63 (39-117) U/L Troponin I High Sens 8.9 (<3.5-35.0) ng/L Total Protein 6.3 L (6.5-8.0) g/dL Albumin 3.8 (3.5-5.0) g/dL Urine Color Dark Yellow Urine Appearance Clear Urine pH 5.5 (5.0-9.0) Ur Specific [place] 1.025 (1.005-1.025) Urine Protein 30 (1+) H (Neg-Trace) mg/dL Urine Glucose (UA) Negative (Negative) mg/dL Urine Ketones Negative (Negative) mg/dL Urine Blood Negative (Negative) Urine Nitrite Negative (Negative) Ur Leukocyte Esterase Negative (Negative) Urine RBC 0-2 (0-2) /HPF Urine WBC 0-5 (0-5) /HPF Ur Squamous Epith Cells 0-2 (0-2) /HPF Urine Bacteria None Seen (None Seen) Hyaline Casts 0-2 (0-2) /LPF Stool Occult Blood NEGATIVE (NEGATIVE) Independent Interpretation I performed an independent interpretation of an: EKG Interpretation: Normal sinus rhythm, HR-62, no STEMI, DE/QRS/QTC is within normal limits. Radiology Impression Discussion of test interpretation with radiology: I have reviewed the radiologist's reading. Radiologist Impression: Please see the discussion above External Record Review External record reviewed: Outpatient record, Prior outpatient labs and Prior outpatient radiology Chronic Conditions Patient?s care impacted by: Diabetes and Hypertension Critical Care Time Critical Care Time Critical Care Time: Yes Total Critical Care Time: 60 Attestation: I personally attest to this time spent taking care of the patient. Discharge Plan Discharge Clinical Impression: Pain, rectal, History of colorectal cancer Patient Disposition: Still a Patient Prescriptions: No Action oxycodone-acetaminophen [Percocet] 5-325 mg tablet 1 tab PO Q6H PRN (Reason: pain) Qty: 25 0RF Rx Instructions: Partial Fill upon patient request. cetirizine 10 mg Tablet 10 mg PO DAILY metoprolol succinate 50 mg Tablet Extended Release 24 Hr 25 mg PO DAILY lisinopril 20 mg Tablet 10 mg PO DAILY clopidogrel 75 mg Tablet 75 mg PO DAILY amlodipine 5 mg Tablet 5 mg PO DAILY aspirin [Aspirin Low-Strength] 81 mg Tablet,Delayed Release (Dr/Ec) 81 mg PO DAILY docusate sodium 100 mg Capsule 100 mg PO BID furosemide 20 mg Tablet 20 mg PO DAILY fluticasone propionate 50 mcg/actuation [place],Suspension 1 spray INTRANASAL DAILY Rx Instructions: administer into each nostril rosuvastatin 20 mg Tablet 20 mg PO DAILY Novolog U-100 Insulin aspart 90 units subcut (via wearable injectr) DAILY Patient Comments: via insulin pump ondansetron 8 mg Tablet,Disintegrating 8 mg PO Q8H Qty: 60 3RF gabapentin 100 mg capsule 200 mg PO DAILY PRN (Reason: Muscle Spasm) finasteride [Proscar] 5 mg tablet 5 mg PO DAILY 90 Days Qty: 90 3RF Print Language: Polish
[2023-08-22 03:13] LABS: Appearance Urine Clear; Color Urine Dark Yellow; Glucose Urine UA Negative (Negative); Leukocyte Esterase Urine Negative (Negative); Nitrite Urine Negative (Negative); PH 5.5 (5.0-9.0); Specific Gravity - Urine 1.025 (1.005-1.025); UMIC TRIGGER UACC YES; Urine Blood Negative (Negative); Urine Ketones Negative (Negative); Urine Protein 30 (1+) mg/dL (Neg-Trace)
[2023-08-22 03:24] LABS: Bacteria Urine None Seen (None Seen); Hyaline Casts Urine 0-2 /LPF (0-2); RBC Urine 0-2 /HPF (0-2); Squamous Epithelial Cell Urine 0-2 /HPF (0-2); WBC Urine 0-5 /HPF (0-5)
[2023-08-22] MEDS: iohexoL 350 MG/ML 100 ML INFUS..BTL 85 ML IV ×2 (03:37→10:09)
[2023-08-22] MEDS: 0.9 % Sodium Chloride 1,000 ML 999 ML IV ×2 (03:42→08:34)
--- NOTE | 2023-08-22 08:11 | P.CONGS_ITS ---
History of Present Illness Consult details Consult date: 08/22/23 Narrative: 72-year-old male here in the ER for multiple complaints. He has known history of squamous cell anal carcinoma and had undergone chemotherapy and radiation. He describes progression of overall poor health, weakness, poor balance as well as pain in the anus for several months now. He states that he has had poor oral intake for a few weeks. He describes he has no appetite. He states that he continuous to have bowel movements but has to take laxatives for this especially MiraLax. He says that because of this his stools are usually very soft He says that in view of his multiple complaints as described above, he came to the emergency room last night. He denies bleeding per rectum He says he has completed his chemotherapy and radiation. Review of Systems 2 Constitutional: Constitutional: Denies chills, Denies fever(s), Reports lethargy, Reports malaise, Reports poor appetite and Reports weight loss Cardiovascular: Cardiovascular: Denies chest pain, Denies dyspnea and Denies dyspnea on exertion Respiratory: Respiratory: Denies cough, Denies dyspnea and Denies dyspnea on exertion Gastrointestinal: Gastrointestinal: Denies hematochezia and Denies change in bowel habits Genitourinary: Genitourinary: Denies hematuria and Denies difficulty urinating Musculoskeletal: Musculoskeletal: Denies back pain and Denies limited range of motion Neurologic: Denies focal weakness and Denies convulsions Psychiatric: Psychiatric: Denies depression and Denies mood swings PMFSH Past Medical History Medical History 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 TIA (transient ischemic attack) Peripheral artery disease Carotid arterial disease HFrEF (heart failure with reduced ejection fraction) ICD (implantable cardioverter-defibrillator) in place Coronary artery disease Elevated cholesterol HTN (hypertension) Insulin pump in place Diabetes Family History Family History Father Mother Surgical History Surgical History History of intravascular stent placement History of left-sided carotid endarterectomy Hx of CABG Social History Social History Household Members: None Housing: [facility]isted Living Facility Housing Other:: [facility] Do you presently have visiting nurse or other home services: Yes (housekeeping) Alcohol intake: former Comment: COUNTS CORRECT Patient Tobacco Use Status: Former Tobacco user Tobacco use type: Cigarette Years Smoked: 4 Smoked in Last 30 Days: No Patient Interested in Nicotine Replacement: No Patient Given Instructions on How to Stop Smoking: No Second Hand Smoke Exposure: No Use of substances other than those prescribed or required for medical reasons: No Currently Displaying Signs/Symptoms of Drug Intoxication Withdrawal: No Other Past Substance Use Problem:: pt states Yeah, I've done all that stuff but not in last 30 yrs Any prior treatment program specific to substance use: No Have you been hit, kicked, punched, or otherwise hurt by someone within the past year? If so, by whom?: No Do you feel safe in your current relationship?: No Is there a partner from a previous relationship who is making you feel unsafe now?: No Are you made to feel afraid or neglected: No Are you DNR?: No Advance Directives: No Advance Directives Information Provided: Yes Advance Directives on File: No Do you have a plan to hurt others: No Plan Recently lost weight without trying: Yes How much weight loss: 34pounds or more Eating poorly because of decreased appetite: No Nutrition screen score: 6 Nutrition Risks: No Nutritional Risk Poor oral hygiene: No service: Yes Current occupational status: retired Meds Allergies Allergy/AdvReac Type Severity Reaction Status Date / Time Sulfa (Sulfonamide Allergy Unknown Verified 08/21/23 23:30 Antibiotics) Home Medications ?Medication ?Instructions ?Recorded ?Confirmed ?Last Taken ?Type amlodipine 5 mg tablet 5 mg PO DAILY 10/22/22 08/22/23 10/23/22 History aspirin 81 mg tablet,delayed 81 mg PO DAILY 10/22/22 08/22/23 10/15/22 History release cetirizine 10 mg tablet 10 mg PO DAILY 10/22/22 08/22/23 Unknown History clopidogrel 75 mg tablet 37.5 mg PO DAILY 10/22/22 08/22/23 10/15/22 History docusate sodium 100 mg capsule 100 mg PO BID 10/22/22 08/22/23 Unknown History lisinopril 20 mg tablet 5 mg PO DAILY 10/22/22 08/22/23 Unknown History metoprolol succinate 50 mg 25 mg PO DAILY 10/22/22 08/22/23 Unknown History tablet,extended release 24 hr rosuvastatin 20 mg tablet 20 mg PO DAILY 10/22/22 08/22/23 Unknown History escitalopram oxalate 5 mg tablet 5 mg PO DAILY 08/22/23 08/22/23 Unknown History gabapentin 100 mg capsule 200 mg PO BEDTIME PRN Muscle Spasm 08/22/23 08/22/23 Unknown History multivitamin with folic acid 400 1 tab PO DAILY 08/22/23 08/22/23 Unknown History mcg tablet (Daily-Camila (with folic acid)) insulin aspart U-100 100 unit/mL 90 unit subcut DAILY 08/23/23 08/23/23 Unknown History subcutaneous solution (Novolog U-100 Insulin aspart) subcutaneous insulin pump 08/23/23 08/23/23 Unknown History Physical Exam 2 Vital Signs: Vital Signs: Last Vital Signs Temp 97.6 F 08/22/23 08:03 Pulse 57 08/22/23 08:03 Resp 15 08/22/23 08:03 BP 138/68 08/22/23 08:03 Pulse Ox 98 08/22/23 08:03 O2 Del Method Room Air 08/22/23 08:03 BMI result Body Mass Index 22.9 Const: Other: Appears weak and frail General: comfortable and no acute distress Orientation/consciousness: p atient oriented x3 Neck: Neck: Yes no lymphadenopathy Resp: Auscultation: clear to auscultation bilaterally Cardio: Rhythm: regular rhythm GI: Other: Digital rectal exam was attempted but he had severe tenderness so this was deferred Palpation (GI): Soft to palpation, nontender and no guarding Neuro: General: patient oriented x3 Results Labs 08/26/23 06:02 08/24/23 06:24 Labs: Abnormal lab results 08/21/23 08/22/23 Range/Units 23:54 03:04 WBC 4.0 L (4.8-10.8) X10*3/uL RBC 3.97 L (4.60-5.80) X10*6/uL Hgb 11.3 L (14.0-18.0) g/dl Hct 34.2 L (42.0-52.0) % Plt Count 107 L (160-400) X10*3/uL Neut % (Auto) 74.1 H (45-73) % Lymph % (Auto) 7.2 L (20-40) % Eos % (Auto) 6.5 H (0-4) % Lymph # (Auto) 0.3 L (1.2-4.9) X10*3/uL Carbon Dioxide 21 L (22-29) mmol/L Total Protein 6.3 L (6.5-8.0) g/dL Urine Protein 30 (1+) H (Neg-Trace) mg/dL Short CBC 08/21/23 Range/Units 23:54 WBC 4.0 L (4.8-10.8) X10*3/uL Hgb 11.3 L (14.0-18.0) g/dl Hct 34.2 L (42.0-52.0) % Plt Count 107 L (160-400) X10*3/uL BMP 08/21/23 23:54 Sodium 139 Potassium 4.1 Chloride 107 Carbon Dioxide 21 L BUN 15 Creatinine 0.67 Calcium 9.3 Liver Function 08/21/23 Range/Units 23:54 Total Bilirubin 0.8 (0.0-1.0) mg/dL AST 17 (5-37) U/L ALT 14 (0-40) U/L Alkaline Phosphatase 63 (39-117) U/L Albumin 3.8 (3.5-5.0) g/dL Urine 08/22/23 Range/Units 03:04 Urine Color Dark Yellow Urine Appearance Clear Urine pH 5.5 (5.0-9.0) Ur Specific [place] 1.025 (1.005-1.025) Urine Protein 30 (1+) H (Neg-Trace) mg/dL Urine Glucose (UA) Negative (Negative) mg/dL All other labs normal. Imaging Abdomen CT scan report/results: report reviewed and image reviewed CT scan - pelvis: report reviewed and image reviewed Assessment and Plan (1) Anal squamous cell carcinoma: Status: Acute He has a history of anal squamous cell carcinoma and now has multiple complaints after chemotherapy and radiation. He is persistent pain in the 2 minutes anus for the past few months as well. It does not appear that he has responded well to chemotherapy and radiation which is the primary treatment for squamous cell anal carcinoma. I would recommend him to be seen by the oncologist Dr. Colmenares who has seen him in the past. He has significant volume in the colon so he may need continue with stool softeners. He currently does not appear to be obstructed although he may benefit from a colostomy in the future for diversion in case he has severe pain with bowel movements. I will follow along while he is in the hospital. Procedures Date of Service Date of Service: 08/26/23
--- NOTE | 2023-08-22 09:30 | PM.IMHP ---
History of Present Illness Date of Service: 08/22/23 Chief Complaint: dizziness, rectal pain The patient is a 72 year old male with a PMH of rectal cancer s/p chemo and radiation (last treatment in February 2023) who presents to [facility] ED with several complaints. He states over the last month or so, he has been feeling increasingly dizzy and off balance . He reports that he has required his cane more frequently and has reported some falls. He denies any loss of consciousness. He denies any headache or blurred vision. He denies other focal neurological symptoms. His second complaint is of rectal pain. He initially states that he noticed it over the last week or two, but upon further thinking, he feels that this has also been going on for over a month. He denies any blood. He denies any abdominal pain but reports severe rectal pain with defecation . He endorses constipation and using laxatives intermittently. He reports last BM the night before admission. He denies nausea/vomiting. He reports a good appetite. In the ED work up included a CT of the abdomen and pelvis which showed large stool burden with a distended rectum (see report for full findings). CXR without acute findings. Lab work showed pancytopenia including chronic thrombocytopenia. He was evaluated by Gen Surg in the ED and now will be admitted under observation for further evaluation. Review of Systems Review of Systems: Negative except HPI/interval history. 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 TIA (transient ischemic attack) Peripheral artery disease Carotid arterial disease HFrEF (heart failure with reduced ejection fraction) ICD (implantable cardioverter-defibrillator) in place Coronary artery disease Elevated cholesterol HTN (hypertension) Insulin pump in place Diabetes Family History Father Mother Surgical History History of intravascular stent placement History of left-sided carotid endarterectomy Hx of CABG Social History Household Members: None Housing: [facility] Other[facility] Do you presently have visiting nurse or other home services: Yes (housekeeping) Alcohol intake: former Patient Tobacco Use Status: Former Tobacco user Tobacco use type: Cigarette Cigarettes Per Day: 10 Years Smoked: 4 Smoked in Last 30 Days: No Patient Interested in Nicotine Replacement: No Patient Given Instructions on How to Stop Smoking: No Second Hand Smoke Exposure: No Use of substances other than those prescribed or required for medical reasons: No Currently Displaying Signs/Symptoms of Drug Intoxication Withdrawal: No Other Past Substance Use Problem:: pt states Yeah, I've done all that stuff but not in last 30 yrs Any prior treatment program specific to substance use: No Have you been hit, kicked, punched, or otherwise hurt by someone within the past year? If so, by whom?: No Do you feel safe in your current relationship?: No Is there a partner from a previous relationship who is making you feel unsafe now?: No Are you made to feel afraid or neglected: No Advance Directives: No Advance Directives Information Provided: Yes Do you have a plan to hurt others: No Plan Recently lost weight without trying: Yes How much weight loss: 34pounds or more Eating poorly because of decreased appetite: No Nutrition screen score: 6 Nutrition Risks: No Nutritional Risk Poor oral hygiene: No service: Yes ([employer]) Current occupational status: retired [employer] Allergies Allergy/AdvReac Type Severity Reaction Status Date / Time Sulfa (Sulfonamide Allergy Unknown Verified 08/21/23 23:30 Antibiotics) Active Medications: Current Medications Acetaminophen (Acetaminophen 325 Mg Tablet) 650 mg PO Q6H PRN PRN Reason: Pain, Mild (Pain Scale 1-3) Enoxaparin Sodium (Enoxaparin Sodium 40 Mg/0.4 Ml Syringe) 40 mg SUBCUT Q24H [facility] Lactated Ringer's (Lr) 1,000 mls @ 100 mls/hr IVCONT .Q10H [facility] Stop: 08/22/23 19:29 Ondansetron HCl (Ondansetron Hcl 4 Mg/2 Ml Vial) 4 mg IVPUSH Q8H PRN PRN Reason: Nausea and Vomiting Polyethylene Glycol (Polyethylene Glycol 3350 17 Gm Powd.Pack) 17 gm PO DAILY [facility] Senna/Docusate Sodium (Sennosides/Docusate Sodium Tablet) 1 tab PO BID [facility] Sodium Chloride (0.9 % Sodium Chloride Flush 3 Ml Syringe) 3 ml IVFLUSH QSHIFT [facility] Home Medications ?Medication ?Instructions ?Recorded ?Confirmed ?Last Taken ?Type amlodipine 5 mg tablet 5 mg PO DAILY 10/22/22 08/22/23 10/23/22 History aspirin 81 mg tablet,delayed 81 mg PO DAILY 10/22/22 08/22/23 10/15/22 History release cetirizine 10 mg tablet 10 mg PO DAILY 10/22/22 08/22/23 Unknown History clopidogrel 75 mg tablet 37.5 mg PO DAILY 10/22/22 08/22/23 10/15/22 History docusate sodium 100 mg capsule 100 mg PO BID 10/22/22 08/22/23 Unknown History lisinopril 20 mg tablet 5 mg PO DAILY 10/22/22 08/22/23 Unknown History metoprolol succinate 50 mg 25 mg PO DAILY 10/22/22 08/22/23 Unknown History tablet,extended release 24 hr rosuvastatin 20 mg tablet 20 mg PO DAILY 10/22/22 08/22/23 Unknown History escitalopram oxalate 5 mg tablet 5 mg PO DAILY 08/22/23 08/22/23 Unknown History gabapentin 100 mg capsule 200 mg PO BEDTIME PRN Muscle Spasm 08/22/23 08/22/23 Unknown History multivitamin with folic acid 400 1 tab PO DAILY 08/22/23 08/22/23 Unknown History mcg tablet (Daily-Camila (with folic acid)) insulin aspart U-100 100 unit/mL 90 unit subcut DAILY 08/23/23 08/23/23 Unknown History subcutaneous solution (Novolog U-100 Insulin aspart) subcutaneous insulin pump 08/23/23 08/23/23 Unknown History Physical Exam Vital Signs and Narrative: Vital Signs: Last Vital Signs Temp 97.6 F 08/22/23 08:03 Pulse 57 08/22/23 08:03 Resp 15 08/22/23 08:03 BP 138/68 08/22/23 08:03 Pulse Ox 98 08/22/23 08:03 O2 Del Method Room Air 08/22/23 08:03 BMI result Body Mass Index 22.9 Const: Other: Constitutional - Awake and Alert, No apparent distress, frail appearing Eyes - PERRLA, EOMI Cardiovascular - S1S2, RRR, No edema Respiratory - Normal lung expansion, Normal respiratory effort, No respiratory distress, CTA bilaterally Gastrointestinal - NT / ND; +BS; No rebound or guarding - No CVA tenderness Extremities - no calf tenderness bilaterally, no swelling Musculoskeletal - Normal inspection, normal ROM Skin - Warm/Dry Neurological - Alert & oriented x3, No focal deficit Psychological - Appropriate affect Results Labs 08/23/23 05:43 08/23/23 05:43 Labs: Laboratory Results - last 24 hr 08/21/23 08/22/23 08/22/23 23:54 02:24 03:04 MCV 86.1 MCH 28.5 MCHC 33.0 RDW 15.7 Plt Count 107 L MPV 9.8 Immature Gran % (Auto) 0.2 Neut % (Auto) 74.1 H Lymph % (Auto) 7.2 L [place] % (Auto) 11.0 Eos % (Auto) 6.5 H Baso % (Auto) 1.0 Lymph # (Auto) 0.3 L [place] # (Auto) 0.4 Eos # (Auto) 0.3 Baso # (Auto) 0.0 Abs Immat Gran (auto) 0.01 Absolute Neuts (auto) 3.0 Absolute Nucleated RBC 0.000 Nucleated RBC % (auto) 0.0 Anion Gap 15 Estim Creat Clear Calc 112.4 Estimated GFR > 60 Random Glucose 90 Calcium 9.3 Total Bilirubin 0.8 AST 17 ALT 14 Alkaline Phosphatase 63 Troponin I High Sens 8.9 Total Protein 6.3 L Albumin 3.8 Urine Color Dark Yellow Urine Appearance Clear Urine pH 5.5 Ur Specific [place] 1.025 Urine Protein 30 (1+) H Urine Glucose (UA) Negative Urine Ketones Negative Urine Blood Negative Urine Nitrite Negative Ur Leukocyte Esterase Negative Urine RBC 0-2 Urine WBC 0-5 Ur Squamous Epith Cells 0-2 Urine Bacteria None Seen Hyaline Casts 0-2 Stool Occult Blood NEGATIVE Imaging Radiologist's Impressions: Impressions Chest X-Ray 08/22/23 00:22 IMPRESSION: No acute cardiopulmonary findings. Abdomen/Pelvis CT 08/22/23 03:42 IMPRESSION: 1. Large amount of stool throughout the colon. Distalmost rectum is collapsed which limits evaluation for wall thickening or mass. Given the amount of stool in the colon, the possibility of an obstructive process in the distal rectum cannot be excluded Perirectal stranding is noted, which could reflect stercoral colitis in the proper clinical setting. 2. Right ureterovesicular junction calculus measuring 4 mm without significant hydronephrosis. 3. Diffuse mural prominence of the urinary bladder, which could be due to underdistention versus cystitis. 4. Small pleural effusions. Suggestion of a small amount of loculated fluid anteriorly at the left lung base. 5. Redemonstrated peripherally calcified low-density structure in the region of the lesser sac, suspicious for a pseudocyst in the setting of chronic pancreatitis. Assessment and Plan (1) Pain, rectal: Status: Acute Plan 72 yo M with a history of rectal ca who prsents with several complaints including dizziness and rectal pain+constipation. He will be placed under observation for further eval and treatment. 1. Dizziness on going >1 month; to check CT brain with IV contrast PT eval check orthostatics IVF 2. Rectal pain/constipation seen by Gen surg in the ED -- does not feel LBO at this time, recs for stool softeners + eval by oncology Oncology consult placed bowel regime pain control 3. Non-obstructing R UVJ calculi (4mm) asymptomatic and likely should pass consider urology consult 4. DM on insulin, continue the same 5. BPH cotinue proscar 6. HFpEF continue baseline meds 7. CAD continue baseline meds on DAPT, unclear why -- pt unsure; 8. HTN continue baseline meds Full Code DVT pptx, Lovenox Quality Stroke Does the patient have a stroke diagnosis?: No VTE Prior VTE?: No VTE Risk Level:: Medical - moderate - high VTE Device Contraindication: N/A - Device Ordered VTE Drug Contraindication: N/A - Med Ordered
[2023-08-22] MEDS: Enoxaparin Sodium 40 MG/0.4 ML SYRINGE SUBCUT (10:12)
--- NOTE | 2023-08-22 10:12 | PHA.MEDREC ---
Pharmacy Consult ? Medication Reconciliation Pharmacy has completed the medication reconciliation. Used patients RX bottles that he brought in familia
[2023-08-22] MEDS: polyethylene glycoL 3350 17 GM POWD.PACK PO (10:13)
[2023-08-22] MEDS: Sennosides/Docusate Sodium TABLET 1 TAB PO ×2 (10:13→23:41)
[2023-08-22] MEDS: lisinopriL 10 MG TABLET PO (10:58)
[2023-08-22] MEDS: Finasteride 5 MG TABLET PO (10:58)
[2023-08-22] MEDS: Metoprolol Succinate ER 25 MG TAB.ER.24H PO (10:59)
[2023-08-22] MEDS: Atorvastatin Calcium 80 MG TABLET PO (10:59)
[2023-08-22] MEDS: amLODIPine Besylate 5 MG TABLET PO (10:59)
[2023-08-22 14:10] LABS: Glucose, Whole Blood 233 mg/dL (60-115)
--- NOTE | 2023-08-22 16:02 | PM.HEMONCCN ---
Subjective - Subjective Chief complaint: Consult for: Squamous cell ca of Anal Canal. Patient: known to practice within the last 3 years Consult date: 08/22/23 Requesting Physician: marcial. Primary Care Provider: Prudence Karimi. Family Provider: Prudence Karimi. Medical Summary: DIAGNOSIS: Squamous cell ca of Anal Canal. CURRENT THERAPY: Combined modality treatment with XRT plus Mitimycin and Xelods, completed end of February. HPI - Consult Narrative Narrative: Serafin Stanford is a 72 year old gentleman referred by Dr. Beltran on account of pancytopenia. Patient was treated for anal carcinoma, with radiation and chemo. HISTORY OF PRESENT ILLNESS: He tells me he had symptoms onset about 10 months ago. It started with constipation. He went in to his primary and a stool softener was prescribed. It did not help. It was then switched to a black capsule. He then went on to develop pain at the anal area. This worsened and was up to a level of 8-9 on 1-10 scale. Couple of months ago he noted bright red blood per rectum. It was mostly at the time of bowel movement and on wiping. He was examined by Dr. Karimi who noted a rectal mass. He was then referred for colonoscopy. He underwent a colonoscopy on 10/24 which revealed: The terminal ileum was examined and appeared normal. The visualized colonic mucosa was normal. Multiple polyps were present. In the cecum was a 6 mm polyp, removed with a cold snare; at 70 cm was a 5 mm polyp also removed with a cold snare. The polyp measuring approximately 10 mm at 30 cm was removed with a hot snare. The rectal mass was identified endoscopically. This appeared to involve the last part of the rectum to the anal sphincter. There was associated heaped up mucosa and ulceration and some oozing prior to any biopsies being obtained. Multiple biopsies were obtained from the lesion. There was some oozing at the end of the procedure that was controlled with cautery, using the tip of the snare and the gold probe. PAST MEDICAL HISTORY: He has diabetes. He is on an insulin pump. FAMILY HISTORY: Most of his family members are gone. Mostly related to heart attacks. His dad has diabetes. Mom had some abdominal infection. PERSONAL HISTORY: He worked as a printing equipment mechanic. He was a long time ago. He has 2 children. He smoked a pack-a-day quit about 50 years ago. He has to drink a lot but stopped a long time ago. ROS: He feels rather wiped out. No fever nor chills. Appetite is regular not too much. He has lost 30 lb over the past 4 months. He denies headaches. He does have a feeling of off balance for the last couple of months. Denies any chest pain or trouble breathing. He denies any abdominal pain. No nausea or vomiting no heartburn. He does have rectal pain and bright blood from the rectum. Denies any urinary complaints. He has had right hip pain from rotator cuff injury. It hurts to move leg. He has not been walking too well. He is mostly sitting down on the couch at home. He has been depressed on account of the recent situation. No skin rashes or pruritus. Review of Systems - Constitutional Reports system reviewed and no additional complaints, except as documented, Reports lack of energy, Reports weakness, Reports weight loss - Eyes Reports system reviewed and no additional complaints, except as documented - ENT Reports system reviewed and no additional complaints, except as documented - Cardiovascular Reports system reviewed and no additional complaints, except as documented - Respiratory Reports no additional respiratory complaints - Gastrointestinal Reports system reviewed and no additional complaints, except as documented - Genitourinary Genitourinary: Reports no additional male genitourinary complaints - Musculoskeletal Reports system reviewed and no additional complaints, except as documented - Integumentary/Breasts Skin/Breast: Reports no additional skin complaints - Neurologic Denies focal weakness, Denies convulsions - Psychiatric Reports system reviewed and no additional complaints, except as documented - Endocrine Reports no additional endocrine complaints - Hematologic/Lymphatic Reports system reviewed and no additional complaints, except as documented - Allergic/Immunologic Reports system reviewed and no additional complaints, except as documented Oncology Screenings - ECOG Performance Status ECOG Performance Status: 0 [facility] Medical History: Medical History (Last Reviewed 08/23/23 @ 10:09 by Gretchen Bansal, NITESH) Anal squamous cell carcinoma Carotid arterial disease Coronary artery disease Diabetes Elevated cholesterol HFrEF (heart failure with reduced ejection fraction) HTN (hypertension) ICD (implantable cardioverter-defibrillator) in place Insulin pump in place Peripheral artery disease Squamous cell carcinoma of rectum TIA (transient ischemic attack) Functional capacity: independent ambulation Patient : No Family History: Family History (Last Reviewed 08/22/23 @ 03:02 by Maria L Albert MD) Father Mother Surgical History: Surgical History (Last Reviewed 08/23/23 @ 10:09 by Gretchen Bansal PT) History of intravascular stent placement History of left-sided carotid endarterectomy Hx of CABG Social History: Social History (Last Reviewed 08/22/23 @ 03:02 by Maria L Albert MD) Living Situation History: Household Members: None Housing: Assisted Living Facility Housing Other:: [facility] Do you presently have visiting nurse or other home services: Yes Do you presently have visiting nurse or other home services comment: housekeeping Alcohol History Details: 1. How often do you have a drink containing alcohol?: a. Never 3. How often do you have six or more drinks on one occasion?: a. Never AUDIT-C Alcohol total score: 0 Currently Displaying Signs/Symptoms of Alcohol Withdrawal: No Tobacco History: Patient Tobacco Use Status: Former Tobacco user Tobacco use type: Cigarette Cigarettes Per Day: 10 Years Smoked: 4 Smoked in Last 30 Days: No Patient Interested in Nicotine Replacement: No Patient Given Instructions on How to Stop Smoking: No Second Hand Smoke Exposure: No Substance Use History: Use of substances other than those prescribed or required for medical reasons: No Currently Displaying Signs/Symptoms of Drug Intoxication Withdrawal: No Other Past Substance Use Problem:: pt states Yeah, I've done all that stuff but not in last 30 yrs Any prior treatment program specific to substance use: No Domestic Abuse History: Have you been hit, kicked, punched, or otherwise hurt by someone within the past year? If so, by whom?: No Do you feel safe in your current relationship?: No Is there a partner from a previous relationship who is making you feel unsafe now?: No Are you made to feel afraid or neglected: No Advance Directives: Advance Directives: No Advance Directives Information Provided: Yes Homicidal Assessment: Do you have a plan to hurt others: No Plan Nutrition Assessment: Recently lost weight without trying: Yes How much weight loss: 34pounds or more Eating poorly because of decreased appetite: No Nutrition screen score: 6 Nutrition Risks: No Nutritional Risk Patient : No Poor oral hygiene: No Occupation Assessmet: service: Yes Current occupational status: retired Home Medications and Allergies Current Medications: Current Medications Acetaminophen (Acetaminophen 325 Mg Tablet) 650 mg PO Q6H PRN PRN Reason: Pain, Mild (Pain Scale 1-3) Aspirin (Aspirin Enteric Coated 81 Mg Tablet.) 81 mg PO DAILY [facility] Atorvastatin Calcium (Atorvastatin Calcium 80 Mg Tablet) 80 mg PO DAILY [facility] Last Admin: 08/22/23 10:59 Dose: 80 mg Clopidogrel Bisulfate (Clopidogrel Bisulfate 75 Mg Tablet) 37.5 mg PO DAILY [facility] Enoxaparin Sodium (Enoxaparin Sodium 40 Mg/0.4 Ml Syringe) 40 mg SUBCUT Q24H [facility] Last Admin: 08/22/23 10:12 Dose: 40 mg Finasteride (Finasteride 5 Mg Tablet) 5 mg PO DAILY [facility] Last Admin: 08/22/23 10:58 Dose: 5 mg Lisinopril (Lisinopril 10 Mg Tablet) 5 mg PO DAILY [facility]; Protocol Loratadine (Loratadine 10 Mg Tablet) 10 mg PO DAILY [facility] Metoprolol Succinate (Metoprolol Succinate Er 25 Mg Tab.Er.24h) 25 mg PO DAILY [facility]; Protocol Last Admin: 08/22/23 10:59 Dose: 25 mg Ondansetron HCl (Ondansetron Hcl 4 Mg/2 Ml Vial) 4 mg IVPUSH Q8H PRN PRN Reason: Nausea and Vomiting Oxycodone HCl (Oxycodone Hcl Immed Release 5 Mg Tablet) 5 mg PO Q6H PRN PRN Reason: Pain, Severe (Pain Scale 7-10) Polyethylene Glycol (Polyethylene Glycol 3350 17 Gm Powd.Pack) 17 gm PO DAILY [facility] Last Admin: 08/22/23 10:13 Dose: 17 gm Senna/Docusate Sodium (Sennosides/Docusate Sodium Tablet) 1 tab PO BID [facility] Last Admin: 08/22/23 10:13 Dose: 1 tab Sodium Chloride (0.9 % Sodium Chloride Flush 3 Ml Syringe) 3 [facility] Home Medications ?Medication ?Instructions ?Recorded ?Confirmed ?Type amlodipine 5 mg tablet 5 mg PO DAILY 10/22/22 08/22/23 History aspirin 81 mg tablet,delayed 81 mg PO DAILY 10/22/22 08/22/23 History release cetirizine 10 mg tablet 10 mg PO DAILY 10/22/22 08/22/23 History clopidogrel 75 mg tablet 37.5 mg PO DAILY 10/22/22 08/22/23 History docusate sodium 100 mg capsule 100 mg PO BID 10/22/22 08/22/23 History lisinopril 20 mg tablet 5 mg PO DAILY 10/22/22 08/22/23 History metoprolol succinate 50 mg 25 mg PO DAILY 10/22/22 08/22/23 History tablet,extended release 24 hr rosuvastatin 20 mg tablet 20 mg PO DAILY 10/22/22 08/22/23 History escitalopram oxalate 5 mg tablet 5 mg PO DAILY 08/22/23 08/22/23 History gabapentin 100 mg capsule 200 mg PO BEDTIME PRN Muscle Spasm 08/22/23 08/22/23 History multivitamin with folic acid 400 1 tab PO DAILY 08/22/23 08/22/23 History mcg tablet (Daily-Camila (with folic acid)) insulin aspart U-100 100 unit/mL 90 unit subcut DAILY 08/23/23 08/23/23 History subcutaneous solution (Novolog U-100 Insulin aspart) subcutaneous insulin pump 08/23/23 08/23/23 History Allergies Allergy/AdvReac Type Severity Reaction Status Date / Time Sulfa (Sulfonamide Allergy Unknown Verified 08/21/23 23:30 Antibiotics) Physical Exam Vital signs: Vital Signs Temp 97.5 F 08/22/23 09:47 Pulse 66 08/22/23 10:59 Resp 16 08/22/23 09:47 BP 150/70 H 08/22/23 10:59 Pulse Ox 95 08/22/23 09:47 O2 Del Method Room Air 08/22/23 09:47 Intake & Output 08/21/23 08/22/23 08/22/23 18:59 06:59 18:59 Intake Total 1000 / 1000 1000 / 1000 Balance 1000 / 1000 1000 / 1000 Intake: Intake, IV Amount 1000 / 1000 1000 / 1000 0.9 % Sodium Chloride 1,000 ml 1000 / 1000 1000 / 1000 @ 999 mls/hr IV .Q1H1M [facility] Rx#: [id number] Other: Lunch % Eaten 50% Weight 80.931 kg Weight 80.931 kg - Constitutional Present: mild distress Hem/Onc Consult Result - Labs CBC & Chem 7: 08/23/23 05:43 08/24/23 06:24 Labs: Short CBC 08/21/23 Range/Units 23:54 WBC 4.0 L (4.8-10.8) X10*3/uL Hgb 11.3 L (14.0-18.0) g/dl Hct 34.2 L (42.0-52.0) % Plt Count 107 L (160-400) X10*3/uL BMP 08/21/23 23:54 Sodium 139 Potassium 4.1 Chloride 107 Carbon Dioxide 21 L BUN 15 Creatinine 0.67 Calcium 9.3 Liver Function 08/21/23 Range/Units 23:54 Total Bilirubin 0.8 (0.0-1.0) mg/dL AST 17 (5-37) U/L ALT 14 (0-40) U/L Alkaline Phosphatase 63 (39-117) U/L Albumin 3.8 (3.5-5.0) g/dL Urine 08/22/23 Range/Units 03:04 Urine Color Dark Yellow Urine Appearance Clear Urine pH 5.5 (5.0-9.0) Ur Specific [place] 1.025 (1.005-1.025) Urine Protein 30 (1+) H (Neg-Trace) mg/dL Urine Glucose (UA) Negative (Negative) mg/dL Assessment and Plan Patient Active problem list reviewed?: Yes (1) Anal squamous cell carcinoma Status: Acute Assessment and plan: This is a pleasant 72-year-old gentleman, whom I saw back in October of last year. He had presented with symptoms of constipation, rectal pain and bright red blood per rectum over the past 4 months. He was noted to have a rectal mass by his primary. He underwent a colonoscopy on 10/24 which revealed: The terminal ileum was examined and appeared normal. The visualized colonic mucosa was normal. Multiple polyps were present. In the cecum was a 6 mm polyp, removed with a cold snare; at 70 cm was a 5 mm polyp also removed with a cold snare. The polyp measuring approximately 10 mm at 30 cm was removed with a hot snare. The rectal mass was identified endoscopically. This appeared to involve the last part of the rectum to the anal sphincter. There was associated heaped up mucosa and ulceration and some oozing prior to any biopsies being obtained. Multiple biopsies were obtained from the lesion. There was some oozing at the end of the procedure that was controlled with cautery, using the tip of the snare and the gold probe. Pathology: Squamous cell carcinoma, superficially invasive, moderately differentiated, nonkeratinizing involving rectal mucosa. My concern is if this is a Primary Anal Carcinoma with extension into rectum. checked CT scan of the abdomen pelvis and a chest CT to look for any evidence of metastatic disease. Irregular rectal wall thickening and mucosal hyperenhancement. Constipation. Chronic pancreatitis with likely chronic pseudocyst measuring 5.0 x 7.1 cm. Severe atherosclerotic changes and extensive atheromatous plaque of the superior mesenteric artery. Severe calcification at the origin of bilateral renal arteries. This study was not optimally performed to evaluate the vasculature. CTA would provide a better assessment. Pulmonary nodules measuring up to 6 mm. Follow-up chest CT in 3-6 months is advised. Bilateral nonobstructing renal calculi. Requested for an MRI of the pelvis to get exact location/measurements and extent of the anal/ rectal tumor. This was scheduled for 11/26 at [facility]. He saw the radiation therapist the same day. l checked a tumor marker: CEA: 6.80. I referred him for surgical consultation prior to treatment. He was examined by Dr. Ma on 11/05, his note: Rectal exam - induration on the left anal verge, about 2 cm, very tender so I was unable to do a rectal exam or digital exam/anoscopy Palpation (GI): Soft to palpation, not firm and nontender. He was treated with combined modality therapy with radiation along with chemotherapy. Mitomycin +Capecitabine, along with radiation. He completed the therapy end of February. He tells me he was examined by Dr. Rangel in June and was told he has had a good response to treatment. He now presents with increasing jose-anal pain, and fatigue. He has mild pancytopenia, residual from chemo/RT. (Mitomycin can cause delayed bone marrow toxicity.) He was examined by Dr. Ma, but was not successful on account of pain. Cat scan of abdomen revealed: A lot of stool, so bowel obstruction could not be ruled out. PLAN: Bowel clean out. Then exam under anesthesia, to assess for tumor status. Scheduled for saturday. Will then make further plans. Meanwhile, institute pain control. Focus on nutrition. Thanks, CC: Prudence Karimi. . - Time Spent With Patient Time Spent with Patient (in minutes): 30
[2023-08-22] MEDS: 0.9 % Sodium Chloride Flush 3 ML SYRINGE IVFLUSH ×2 (16:11→23:46)
--- NOTE | 2023-08-22 17:58 | PC.NURSE ---
pt ambulated to bathroom with walker and standby assist. per pt, he had a large bowel movement.
[2023-08-22 20:36] LABS: Glucose, Whole Blood 151 mg/dL (60-115)
[2023-08-23 03:49] VITALS: BP 161/79; PULSE 69; RESP 19; TEMP 36.4
[2023-08-23 05:51] LABS: Basophils Percent Auto 0.9 % (0-2); Eosinophils Absolute Auto 0.3 X10*3/uL (0.0-0.4); Eosinophils Percent Auto 8.1 % (0-4); Hematocrit 32.5 % (42.0-52.0); Hemoglobin 10.5 g/dl (14.0-18.0); Imm Gran Abs Auto 0.01 X10*3/uL (0.00-0.03); Imm Gran Pct Auto 0.3 % (0.0-0.4); Lymphocytes Absolute Auto 0.4 X10*3/uL (1.2-4.9); Lymphocytes Percent Auto 11.7 % (20-40); MANUAL DIFF FLAG NO; Mean Corpuscular HGB Conc 32.3 g/dl (31.0-36.0); Mean Corpuscular Volume 86.7 fL (80.0-98.0); Mean Platelet Volume 9.6 fL (9.4-12.4); Monocytes Absolute Auto 0.4 X10*3/uL (0.1-1.2); Monocytes Percent Auto 11.7 % (2-11); Neutrophils Absolute Auto 2.3 x10*3/uL (2.0-8.3); Neutrophils Percent Auto 67.3 % (45-73); Red Blood Count 3.75 X10*6/uL (4.60-5.80); Red Cell Distribution Width 15.6 % (11.0-16.0); White Blood Count 3.3 X10*3/uL (4.8-10.8)
[2023-08-23 05:52] LABS: Platelet Count 87 X10*3/uL (160-400)
[2023-08-23 06:17] LABS: Anion Gap 14 (12-20); Blood Urea Nitrogen 11 mg/dL (9-16); Calcium 8.8 mg/dL (8.4-10.2); Carbon Dioxide 24 mmol/L (22-29); Chloride 105 mmol/L (96-108); Creatinine Clr Calc Pharmacy 84.2; Estimated Glomerular Filt Rate > 60; Glucose Random 190 mg/dL (60-115); Potassium 4.2 mmol/L (3.3-5.1); Sodium 139 mmol/L (135-145)
[2023-08-23 07:09] VITALS: BP 126/89; PULSE 63; RESP 18; TEMP 36.3; O2SAT 96
[2023-08-23 07:23] LABS: Glucose, Whole Blood 184 mg/dL (60-115)
--- NOTE | 2023-08-23 08:28 | PC.NURSE ---
patient has his own insulin pump ,all info re: Insulin and pump setting is being verified by Gail Mcdaniels and PIERCE Lovelace . Pt's pump is alarming now as an empty reservoir. is aware.
[2023-08-23 09:13] LABS: Glucose, Whole Blood 209 mg/dL (60-115)
[2023-08-23] MEDS: Metoprolol Succinate ER 25 MG TAB.ER.24H PO (09:18)
[2023-08-23] MEDS: Aspirin Enteric Coated 81 MG TABLET.DR PO (09:18)
[2023-08-23] MEDS: polyethylene glycoL 3350 17 GM POWD.PACK PO (09:18)
[2023-08-23] MEDS: Finasteride 5 MG TABLET PO (09:18)
[2023-08-23] MEDS: Sennosides/Docusate Sodium TABLET 1 TAB PO ×2 (09:19→21:41)
[2023-08-23] MEDS: Atorvastatin Calcium 80 MG TABLET PO (09:19)
[2023-08-23] MEDS: 0.9 % Sodium Chloride Flush 3 ML SYRINGE IVFLUSH ×3 (09:19→21:42)
[2023-08-23] MEDS: lisinopriL 10 MG TABLET 5 MG PO (09:19)
[2023-08-23] MEDS: Loratadine 10 MG TABLET PO (09:19)
[2023-08-23] MEDS: Clopidogrel Bisulfate 75 MG TABLET 37.5 MG PO (09:19)
[2023-08-23] MEDS: Enoxaparin Sodium 40 MG/0.4 ML SYRINGE SUBCUT (09:23)
--- NOTE | 2023-08-23 09:24 | MHC.CM.PN ---
CM met with Patient at bedside and addressed BEEBE with him, providing Patient with the original and a copy has been placed on the chart. Patient lives alone in an apartment and just prior to admission, he had no home services nor DME. Patient may benefit from a PT Eval to assist with disposition. CM has initiated and will follow for dc planning. PCP is through the [facility] in [place], (Dr. Gaxiola). Patient states that he has named his Friend/Facundo as the HCP.
[2023-08-23 10:07] VITALS: BP 126/89; PULSE 63; O2SAT 96
[2023-08-23] MEDS: Subcutaneous Insulin Pump 1 EACH SUBCUT ×3 (10:35→22:33)
[2023-08-23 11:05] LABS: Glucose, Whole Blood 306 mg/dL (60-115)
--- NOTE | 2023-08-23 11:36 | PC.NURSE ---
Addendum entered by Rhianna Cook RN 08/23/23 11:37: insulin basal rate :Novolog 0.8 units per hr Original Note: RN called DR Craft office [phone] to verify insulin pump baseline
--- NOTE | 2023-08-23 11:39 | P.PNIM_ITS ---
Subjective Subjective Date of Service: 08/23/23 Interval History: seen and examined this morning follow up for rectal pain was able to have a couple BMs after initiating bowel regimen, but still with rectal pain Constitutional Constitutional: Denies chills and Denies fever(s) Physical Exam 2 Vital Signs: Vital Signs: Last Vital Signs Temp 97.4 F 08/23/23 07:09 Pulse 63 08/23/23 10:07 Resp 18 08/23/23 07:09 BP 126/89 08/23/23 10:07 Pulse Ox 96 08/23/23 10:07 O2 Del Method Room Air 08/23/23 07:09 FiO2 97 08/23/23 03:49 BMI result Body Mass Index 22.6 Const: General: cooperative, comfortable, no acute distress, alert and awake Nutritional Appearance: average body habitus Orientation/consciousness: p atient oriented x3 Resp: Effort & Inspection: normal respiratory effort, able to speak in complete sentences, no respiratory distress and no use of accessory muscles Cardio: Rate: regular rate GI: Inspection: No distended Palpation (GI): Soft to palpation and nontender Neuro: General: patient oriented x3, moves all extremities and CN's II-XI intact bilaterally Extrem: General: Yes no pedal edema Objective Data Active Medications Acetaminophen (Acetaminophen 325 Mg Tablet) 650 mg PO Q6H PRN PRN Reason: Pain, Mild (Pain Scale 1-3) Aspirin (Aspirin Enteric Coated 81 Mg Tablet.) 81 mg PO DAILY [facility] Last Admin: 08/23/23 09:18 Dose: 81 mg Documented By: PREMA Atorvastatin Calcium (Atorvastatin Calcium 80 Mg Tablet) 80 mg PO DAILY [facility] Last Admin: 08/23/23 09:19 Dose: 80 mg Documented By: PREMA Clopidogrel Bisulfate (Clopidogrel Bisulfate 75 Mg Tablet) 37.5 mg PO DAILY [facility] Last Admin: 08/23/23 09:19 Dose: 37.5 mg Documented By: PREMA Finasteride (Finasteride 5 Mg Tablet) 5 mg PO DAILY [facility] Last Admin: 08/23/23 09:18 Dose: 5 mg Documented By: PREMA Glucose (Glucose Gel 15 Gm Gel..Gram.) 15 gm PO Q15M PRN; Protocol PRN Reason: per Hypoglycemia Standing Ord. Dextrose (D10) 250 mls @ 750 mls/hr IV Q15M PRN; Protocol PRN Reason: per Hypoglycemia Standing Ord. Insulin Human Lispro (Insulin Lispro 100 Unit/Ml 3 Ml Vial) 0 unit SUBCUT QIDACHS [facility]; Protocol Insulin Pump (Subcutaneous Insulin Pump) 1 each SUBCUT QIDACHS [facility]; Protocol Last Admin: 08/23/23 10:35 Dose: 1 each Documented By: PREMA Lisinopril (Lisinopril 10 Mg Tablet) 5 mg PO DAILY [facility]; Protocol Last Admin: 08/23/23 09:19 Dose: 5 mg Documented By: PREMA Loratadine (Loratadine 10 Mg Tablet) 10 mg PO DAILY [facility] Last Admin: 08/23/23 09:19 Dose: 10 mg Documented By: PREMA Metoprolol Succinate (Metoprolol Succinate Er 25 Mg Tab.Er.24h) 25 mg PO DAILY [facility]; Protocol Last Admin: 08/23/23 09:18 Dose: 25 mg Documented By: PREMA Non-Formulary Medication (Novolog (Insulin Aspart) 100 Units/Ml) 90 units SUBCUT DAILY [facility] Ondansetron HCl (Ondansetron Hcl 4 Mg/2 Ml Vial) 4 mg IVPUSH Q8H PRN PRN Reason: Nausea and Vomiting Oxycodone HCl (Oxycodone Hcl Immed Release 5 Mg Tablet) 5 mg PO Q6H PRN PRN Reason: Pain, Severe (Pain Scale 7-10) Polyethylene Glycol (Polyethylene Glycol 3350 17 Gm Powd.Pack) 17 gm PO DAILY [facility] Last Admin: 08/23/23 09:18 Dose: 17 gm Documented By: PREMA Senna/Docusate Sodium (Sennosides/Docusate Sodium Tablet) 1 tab PO BID [facility] Last Admin: 08/23/23 09:19 Dose: 1 tab Documented By: PREMA Sodium Chloride (0.9 % Sodium Chloride Flush 3 Ml Syringe) 3 ml IVFLUSH QSHIFT [facility] Last Admin: 08/23/23 09:19 Dose: 3 ml Documented By: PREMA Labs 08/23/23 05:43 08/23/23 05:43 Labs: Laboratory Results - last 24 hr 08/22/23 08/22/23 08/23/23 14:06 20:32 05:43 MCV 86.7 MCH 28.0 MCHC 32.3 RDW 15.6 Plt Count 87 L MPV 9.6 Immature Gran % (Auto) 0.3 Neut % (Auto) 67.3 Lymph % (Auto) 11.7 L [place] % (Auto) 11.7 H Eos % (Auto) 8.1 H Baso % (Auto) 0.9 Lymph # (Auto) 0.4 L [place] # (Auto) 0.4 Eos # (Auto) 0.3 Baso # (Auto) 0.0 Abs Immat Gran (auto) 0.01 Absolute Neuts (auto) 2.3 Absolute Nucleated RBC 0.000 Nucleated RBC % (auto) 0.0 Anion Gap 14 Estim Creat Clear Calc 84.2 Estimated GFR > 60 POC Glucose 233 H 151 H Random Glucose 190 H Calcium 8.8 08/23/23 08/23/23 08/23/23 07:15 09:06 10:16 MCV MCH MCHC RDW Plt Count MPV Immature Gran % (Auto) Neut % (Auto) Lymph % (Auto) [place] % (Auto) Eos % (Auto) Baso % (Auto) Lymph # (Auto) [place] # (Auto) Eos # (Auto) Baso # (Auto) Abs Immat Gran (auto) Absolute Neuts (auto) Absolute Nucleated RBC Nucleated RBC % (auto) Anion Gap Estim Creat Clear Calc Estimated GFR POC Glucose 184 H 209 H 306 H Random Glucose Calcium Assessment and Plan (1) History of colorectal cancer: Status: Acute Plan This is a 72 yo M with a history of rectal ca who prsents with several complaints including dizziness and rectal pain+constipation. He will be placed under observation for further eval and treatment. 1. Dizziness denies dizziness this am on going >1 month; CT brain with IV contrast negative for any acute changes orthostatics negative PT rec home with services 2. Rectal pain/constipation seen by Gen surg in the ED -- does not feel LBO at this time, recs for stool softeners seen by oncology - plan for EUA to evaluate for recurrence of cancer on Saturday - NPO saturday night continue bowel regime continue pain meds for adequate pain control 3. Non-obstructing R UVJ calculi (4mm) asymptomatic and likely should pass consider urology consult 4. DM on insulin via insulin pump - pt using own pump with novolog, basal rate 0.8U/hr follow POCs 5. BPH cotinue proscar 6. HFpEF continue baseline meds 7. CAD/carotid disease continue baseline meds on DAPT - pt states due to b/l carotid stenosis 8. HTN continue lisinopril norvasc on hold 9. thrombocytopenia acute on chronic d/c lovenox for now follow CBC Full Code DVT pptx, Lovenox- stopped due to lower platelets. Quality Stroke Does the patient have a stroke diagnosis?: No VTE Prior VTE?: No VTE Risk Level:: Medical - moderate - high VTE Device Contraindication: N/A - Device Ordered VTE Drug Contraindication: N/A - Med Ordered
[2023-08-23 12:08] LABS: Glucose, Whole Blood 278 mg/dL (60-115)
--- NOTE | 2023-08-23 12:17 | MHC.CM.PN ---
CORRECTION! PCP is Dr. Dari Larsen, [facility].
--- NOTE | 2023-08-23 12:38 | PC.NURSE ---
Patient refilled his Insulin pump with Novolog 240 units and restarted at 10:30 am , gave himself initial boluses 5 units at 10:35 and 5 units at 11:00 am , Blood sugar 309 via finger stick when pt restarted his insulin pump
[2023-08-23 13:01] VITALS: BMI 22.6
--- NOTE | 2023-08-23 13:06 | MHC.CLN ---
RE: CONSULT PT IS MODERATELY MALNOURISHED PT WITH MILDLY DEPLETED SUBCUTANEOUS FAT AND MUSCLE MASS, WITH 10% NONSIGNIFICANT WT LOSS WITH INCREASED NUTRITION NEEDS R/T RECENT CHEMO AND RAD TX PO INTAKE 50% X1 MEAL DIET RX: 2000DM -RECOMMEND LIBERALIZING DIET TO EXPAND VARIETY AND PROMOTE INCREASED KCALS NEEDS RECOMMEND ADDING ENSURE TID WITH MEALS TO PROVIDE 1050KCALS, 60G PROTEIN MONITOR PO INTAKE AND ENCOURAGE SUPPLEMENTS SEE ALSO FULL CLINICAL NUTRITION ASSESSMENT
--- NOTE | 2023-08-23 13:07 | MHC.CM.PN ---
Per UR Nurse, Patient has been switched from OBSERVATION to INPATIENT.
[2023-08-23 15:35] VITALS: BP 119/59; PULSE 57; RESP 18; TEMP 36.2; O2SAT 97
--- NOTE | 2023-08-23 16:06 | PM.EVENT ---
Event Note Date of Service: 08/23/23 Event Note: pt seen still has anal pain overall, feels stronger he likely did not have good response to chemo RT I have been asked to do EUA to reevaluate anal canal explained to pt technique of EUA poss biopsy on Saturday discussed risks, benefits and alternatives NPO post MN on Saturday night Time Spent With Patient Time: Total time managing care of this patient today ____ minutes.
[2023-08-23 16:11] LABS: Glucose, Whole Blood 86 mg/dL (60-115)
[2023-08-23] MEDS: oxyCODONE HCl Immed Release 5 MG TABLET PO ×2 (16:13→21:41)
[2023-08-23 19:58] VITALS: BP 113/67; PULSE 62; RESP 16; TEMP 36.4; O2SAT 99
[2023-08-23 20:28] LABS: Glucose, Whole Blood 69 mg/dL (60-115)
[2023-08-23 21:35] LABS: Glucose, Whole Blood 70 mg/dL (60-115)
[2023-08-23 21:39] LABS: Glucose, Whole Blood 90 mg/dL (60-115)
[2023-08-23 23:25] LABS: Glucose, Whole Blood 89 mg/dL (60-115)
[2023-08-23 23:52] VITALS: BP 156/80; PULSE 66; RESP 16; TEMP 36.3
[2023-08-24] VITALS (7 sets, daily range): BP systolic 128–146; BP diastolic 62–76; PULSE 14–66; RESP 16–20; TEMP 36.2–36.7; O2SAT 92–99
[2023-08-24 03:31] LABS: Glucose, Whole Blood 74 mg/dL (60-115)
[2023-08-24] MEDS: oxyCODONE HCl Immed Release 5 MG TABLET PO ×3 (05:39→20:00)
[2023-08-24 07:12] LABS: Anion Gap 13 (12-20); Blood Urea Nitrogen 15 mg/dL (9-16); Calcium 8.6 mg/dL (8.4-10.2); Carbon Dioxide 25 mmol/L (22-29); Chloride 106 mmol/L (96-108); Creatinine Clr Calc Pharmacy 91.5; Estimated Glomerular Filt Rate > 60; Glucose Random 97 mg/dL (60-115); Potassium 4.2 mmol/L (3.3-5.1); Sodium 140 mmol/L (135-145)
[2023-08-24 07:21] LABS: Glucose, Whole Blood 121 mg/dL (60-115)
[2023-08-24] MEDS: Clopidogrel Bisulfate 75 MG TABLET 37.5 MG PO (09:41)
[2023-08-24] MEDS: polyethylene glycoL 3350 17 GM POWD.PACK PO (09:41)
[2023-08-24] MEDS: Finasteride 5 MG TABLET PO (09:41)
[2023-08-24] MEDS: Metoprolol Succinate ER 25 MG TAB.ER.24H PO (09:41)
[2023-08-24] MEDS: lisinopriL 10 MG TABLET 5 MG PO (09:42)
[2023-08-24] MEDS: Loratadine 10 MG TABLET PO (09:42)
[2023-08-24] MEDS: Atorvastatin Calcium 80 MG TABLET PO (09:43)
[2023-08-24] MEDS: Aspirin Enteric Coated 81 MG TABLET.DR PO (09:43)
[2023-08-24] MEDS: Sennosides/Docusate Sodium TABLET 1 TAB PO ×2 (09:43→20:01)
[2023-08-24] MEDS: 0.9 % Sodium Chloride Flush 3 ML SYRINGE IVFLUSH ×2 (09:44→16:05)
[2023-08-24 11:28] LABS: Glucose, Whole Blood 254 mg/dL (60-115)
[2023-08-24] MEDS: Subcutaneous Insulin Pump 1 EACH SUBCUT ×2 (11:54→16:05)
--- NOTE | 2023-08-24 12:57 | P.PNIM_ITS ---
Subjective Subjective Date of Service: 08/24/23 Interval History: Being followed for rectal pain and constipation. Complaining of persistent rectal pain, moving bowel, denies shortness of breath, no nausea, no vomiting, no lightheadedness or dizziness, complaining of generalized weakness. Review of Systems All other system reviewed and are negative. Physical Exam 2 Vital Signs: Vital Signs: Last Vital Signs Temp 97.7 F 08/24/23 07:23 Pulse 63 08/24/23 09:41 Resp 20 08/24/23 07:23 BP 146/76 H 08/24/23 09:42 Pulse Ox 92 08/24/23 07:23 O2 Del Method Room Air 08/24/23 07:23 FiO2 97 08/23/23 03:49 BMI result Body Mass Index 22.6 Const: Other: General awake alert x3, in no acute distress. Neck supple no JVD. CVS regular rate rhythm, Respiratory lungs clear to auscultation, no respiratory distress, no wheeze, no rhonchi. Gastrointestinal abdomen soft, non tender, bowel sounds audible, no guarding , no rigidity. Extremities no edema. Neuro non focal Skin no rash Psych appropriate affect Objective Data Active Medications Acetaminophen (Acetaminophen 325 Mg Tablet) 650 mg PO Q6H PRN PRN Reason: Pain, Mild (Pain Scale 1-3) Aspirin (Aspirin Enteric Coated 81 Mg Tablet.) 81 mg PO DAILY COUNT INCLUDES THE [facility] Last Admin: 08/24/23 09:43 Dose: 81 mg Documented By: MARTINEZ Atorvastatin Calcium (Atorvastatin Calcium 80 Mg Tablet) 80 mg PO DAILY COUNT INCLUDES THE [facility] Last Admin: 08/24/23 09:43 Dose: 80 mg Documented By: MARTINEZ Clopidogrel Bisulfate (Clopidogrel Bisulfate 75 Mg Tablet) 37.5 mg PO DAILY COUNT INCLUDES THE [facility] Last Admin: 08/24/23 09:41 Dose: 37.5 mg Documented By: MARTINEZ Finasteride (Finasteride 5 Mg Tablet) 5 mg PO DAILY COUNT INCLUDES THE [facility] Last Admin: 08/24/23 09:41 Dose: 5 mg Documented By: MARTINEZ Glucose (Glucose Gel 15 Gm Gel..Gram.) 15 gm PO Q15M PRN; Protocol PRN Reason: per Hypoglycemia Standing Ord. Dextrose (D10) 250 mls @ 750 mls/hr IV Q15M PRN; Protocol PRN Reason: per Hypoglycemia Standing Ord. Insulin Pump (Subcutaneous Insulin Pump) 1 each SUBCUT QIDACHS COUNT INCLUDES THE [facility]; Protocol Last Admin: 08/24/23 11:54 Dose: 1 each Documented By: MARTINEZ Lisinopril (Lisinopril 10 Mg Tablet) 5 mg PO DAILY COUNT INCLUDES THE [facility]; Protocol Last Admin: 08/24/23 09:42 Dose: 5 mg Documented By: MARTINEZ Loratadine (Loratadine 10 Mg Tablet) 10 mg PO DAILY COUNT INCLUDES THE [facility] Last Admin: 08/24/23 09:42 Dose: 10 mg Documented By: MARTINEZ Metoprolol Succinate (Metoprolol Succinate Er 25 Mg Tab.Er.24h) 25 mg PO DAILY COUNT INCLUDES THE [facility]; Protocol Last Admin: 08/24/23 09:41 Dose: 25 mg Documented By: MARTINEZ Non-Formulary Medication (Novolog (Insulin Aspart) 100 Units/Ml) 90 units SUBCUT DAILY COUNT INCLUDES THE [facility] Last Admin: 08/24/23 10:02 Dose: Not Given Documented By: MARTINEZ Non-Admin Reason: pt states he doesnt need more at this time Ondansetron HCl (Ondansetron Hcl 4 Mg/2 Ml Vial) 4 mg IVPUSH Q8H PRN PRN Reason: Nausea and Vomiting Oxycodone HCl (Oxycodone Hcl Immed Release 5 Mg Tablet) 5 mg PO Q6H PRN PRN Reason: Pain, Severe (Pain Scale 7-10) Last Admin: 08/24/23 12:03 Dose: 5 mg Documented By: MARTINEZ Polyethylene Glycol (Polyethylene Glycol 3350 17 Gm Powd.Pack) 17 gm PO DAILY COUNT INCLUDES THE [facility] Last Admin: 08/24/23 09:41 Dose: 17 gm Documented By: MARTINEZ Senna/Docusate Sodium (Sennosides/Docusate Sodium Tablet) 1 tab PO BID COUNT INCLUDES THE [facility] Last Admin: 08/24/23 09:43 Dose: 1 tab Documented By: MARTINEZ Sodium Chloride (0.9 % Sodium Chloride Flush 3 Ml Syringe) 3 ml IVFLUSH QSHIFT COUNT INCLUDES THE [facility] Last Admin: 08/24/23 09:44 Dose: 3 ml Documented By: MARTINEZ Labs 08/23/23 05:43 08/24/23 06:24 Labs: Laboratory Results - last 24 hr 08/23/23 08/23/23 08/23/23 16:06 20:22 21:03 Hold Purple Top Anion Gap Estim Creat Clear Calc Estimated GFR POC Glucose 86 69 70 Random Glucose Calcium 08/23/23 08/23/23 08/24/23 21:35 23:21 03:27 Hold Purple Top Anion Gap Estim Creat Clear Calc Estimated GFR POC Glucose 90 89 74 Random Glucose Calcium 08/24/23 08/24/23 08/24/23 06:24 07:07 11:22 Hold Purple Top SEE NOTE Anion Gap 13 Estim Creat Clear Calc 91.5 Estimated GFR > 60 POC Glucose 121 H 254 H Random Glucose 97 Calcium 8.6 Assessment and Plan (1) History of colorectal cancer: Status: Acute Plan This is a 72 yo M with a history of rectal ca who prsents with several complaints including dizziness and rectal pain+constipation. He will be placed under observation for further eval and treatment. 1. Dizziness Resolved, on going >1 month; CT brain with IV contrast negative for any acute changes orthostatics negative PT rec home with services 2. Rectal pain/constipation seen by Gen surg in the ED -- does not feel large bowl obstruction at this time, recs for stool softeners seen by oncology - plan for EUA to evaluate for recurrence of cancer on Saturday - NPO saturday night continue bowel regime, continue pain meds 3. Non-obstructing R UVJ calculi (4mm) asymptomatic and likely should pass, will consult Urology if becomes symptomatic 4. DM on insulin via insulin pump - pt using own pump with novolog, basal rate 0.8U/hr follow POCs 5. BPH cotinue proscar 6. HFpEF continue baseline meds 7. CAD/carotid disease continue baseline meds on DAPT due to b/l carotid stenosis 8. HTN continue lisinopril will increase dose to 10 mg and DC Norvasc 9. thrombocytopenia acute on chronic, no active bleeding noted follow CBC, avoid anticoagulation Full Code DVT pptx, compression boots, Lovenox- stopped due to lower platelets. Quality Stroke Does the patient have a stroke diagnosis?: No VTE Prior VTE?: No VTE Risk Level:: Medical - moderate - high VTE Device Contraindication: N/A - Device Ordered VTE Drug Contraindication: N/A - Med Ordered
--- NOTE | 2023-08-24 15:06 | PC.NURSE ---
patient refusing bed alarm and refusing assistance with ambulation. Patient refusing to allow staff to assist with toileting
[2023-08-24 15:59] LABS: Glucose, Whole Blood 223 mg/dL (60-115)
[2023-08-24 20:03] LABS: Glucose, Whole Blood 79 mg/dL (60-115)
[2023-08-25] MEDS: Subcutaneous Insulin Pump 1 EACH SUBCUT ×5 (00:58→22:27)
[2023-08-25] MEDS: 0.9 % Sodium Chloride Flush 3 ML SYRINGE IVFLUSH ×4 (01:01→22:02)
--- NOTE | 2023-08-25 03:47 | MHC.HEMONC ---
patient refused bed alarm and insists on using the bathroom without assistance from females. The patient was educated about the high risk of falling and why. The patient was made aware the liability is with the patient and not staff or hospital if the patient continues refusing safety precautions
[2023-08-25 03:56] VITALS: BP 135/56; PULSE 59; RESP 18; TEMP 36.7; O2SAT 96
[2023-08-25 06:41] LABS: Hematocrit 32.3 % (42.0-52.0); Hemoglobin 10.7 g/dl (14.0-18.0); Mean Corpuscular HGB Conc 33.1 g/dl (31.0-36.0); Mean Corpuscular Hemoglobin 28.6 pg (27.0-33.0); Mean Corpuscular Volume 86.4 fL (80.0-98.0); Mean Platelet Volume 11.5 fL (9.4-12.4); Red Blood Count 3.74 X10*6/uL (4.60-5.80); Red Cell Distribution Width 15.9 % (11.0-16.0); White Blood Count 4.4 X10*3/uL (4.8-10.8)
[2023-08-25 06:42] LABS: Platelet Count 98 X10*3/uL (160-400)
[2023-08-25 07:33] VITALS: BP 139/62; PULSE 69; RESP 17; TEMP 37.1; O2SAT 98
[2023-08-25 07:52] LABS: Glucose, Whole Blood 124 mg/dL (60-115)
[2023-08-25] MEDS: Clopidogrel Bisulfate 75 MG TABLET 37.5 MG PO (08:11)
[2023-08-25] MEDS: Finasteride 5 MG TABLET PO (08:11)
[2023-08-25 08:12] VITALS: BP 139/62
[2023-08-25] MEDS: Aspirin Enteric Coated 81 MG TABLET.DR PO (08:12)
[2023-08-25] MEDS: Sennosides/Docusate Sodium TABLET 1 TAB PO (08:12)
[2023-08-25] MEDS: Atorvastatin Calcium 80 MG TABLET PO (08:12)
[2023-08-25] MEDS: Loratadine 10 MG TABLET PO (08:12)
[2023-08-25] MEDS: lisinopriL 10 MG TABLET PO (08:12)
[2023-08-25 08:13] VITALS: BP 139/62; PULSE 69
[2023-08-25] MEDS: Metoprolol Succinate ER 25 MG TAB.ER.24H PO (08:13)
[2023-08-25 11:18] LABS: Glucose, Whole Blood 200 mg/dL (60-115)
--- NOTE | 2023-08-25 13:41 | HO.PM.IMPN ---
Subjective Subjective Date of Service: 08/25/23 Interval History: c/o weakness rectal pain improved no obvious bleeding Review of Systems Review of Systems: Yes all other systems are reviewed and are negative Physical Exam Vital Signs: Vital Signs: Last Vital Signs Temp 98.8 F 08/25/23 07:33 Pulse 69 08/25/23 08:13 Resp 17 08/25/23 07:33 BP 139/62 08/25/23 08:13 Pulse Ox 98 08/25/23 07:33 O2 Del Method Room Air 08/25/23 07:33 FiO2 97 08/23/23 03:49 BMI result Body Mass Index 22.6 Gen: in no acute distress HEENT: sclera anicteric, moist mucus membranes Neck: supple Lungs: clear to auscultation bilaterally Heart: regular rate and rhythm, no murmurs Abd: soft, non-tender, non-distended Ext: no edema Skin: warm/well-perfused Neuro: alert and oriented x3, no focal findings Psych: appropriate affect Objective Data Active Medications Acetaminophen (Acetaminophen 325 Mg Tablet) 650 mg PO Q6H PRN PRN Reason: Pain, Mild (Pain Scale 1-3) Aspirin (Aspirin Enteric Coated 81 Mg Tablet.) 81 mg PO DAILY [facility] Last Admin: 08/25/23 08:12 Dose: 81 mg Documented By: MARTINEZ Atorvastatin Calcium (Atorvastatin Calcium 80 Mg Tablet) 80 mg PO DAILY [facility] Last Admin: 08/25/23 08:12 Dose: 80 mg Documented By: MARTINEZ Clopidogrel Bisulfate (Clopidogrel Bisulfate 75 Mg Tablet) 37.5 mg PO DAILY [facility] Last Admin: 08/25/23 08:11 Dose: 37.5 mg Documented By: MARTINEZ Finasteride (Finasteride 5 Mg Tablet) 5 mg PO DAILY [facility] Last Admin: 08/25/23 08:11 Dose: 5 mg Documented By: MARTINEZ Glucose (Glucose Gel 15 Gm Gel..Gram.) 15 gm PO Q15M PRN; Protocol PRN Reason: per Hypoglycemia Standing Ord. Dextrose (D10) 250 mls @ 750 mls/hr IV Q15M PRN; Protocol PRN Reason: per Hypoglycemia Standing Ord. Insulin Pump (Subcutaneous Insulin Pump) 1 each SUBCUT QIDACHS [facility]; Protocol Last Admin: 08/25/23 11:45 Dose: 1 each Documented By: MARTINEZ Lisinopril (Lisinopril 10 Mg Tablet) 10 mg PO DAILY [facility]; Protocol Last Admin: 08/25/23 08:12 Dose: 10 mg Documented By: MARTINEZ Loratadine (Loratadine 10 Mg Tablet) 10 mg PO DAILY [facility] Last Admin: 08/25/23 08:12 Dose: 10 mg Documented By: MARTINEZ Metoprolol Succinate (Metoprolol Succinate Er 25 Mg Tab.Er.24h) 25 mg PO DAILY [facility]; Protocol Last Admin: 08/25/23 08:13 Dose: 25 mg Documented By: MARTINEZ Non-Formulary Medication (Novolog (Insulin Aspart) 100 Units/Ml) 90 units SUBCUT DAILY [facility] Last Admin: 08/25/23 08:13 Dose: 90 units Documented By: MARTINEZ Ondansetron HCl (Ondansetron Hcl 4 Mg/2 Ml Vial) 4 mg IVPUSH Q8H PRN PRN Reason: Nausea and Vomiting Oxycodone HCl (Oxycodone Hcl Immed Release 5 Mg Tablet) 5 mg PO Q6H PRN PRN Reason: Pain, Severe (Pain Scale 7-10) Last Admin: 08/24/23 20:00 Dose: 5 mg Documented By: JACOBY Polyethylene Glycol (Polyethylene Glycol 3350 17 Gm Powd.Pack) 17 gm PO DAILY [facility] Last Admin: 08/25/23 08:25 Dose: Not Given Documented By: MARTINEZ Non-Admin Reason: Patient Refused Senna/Docusate Sodium (Sennosides/Docusate Sodium Tablet) 1 tab PO BID [facility] Last Admin: 08/25/23 08:12 Dose: 1 tab Documented By: MARTINEZ Sodium Chloride (0.9 % Sodium Chloride Flush 3 Ml Syringe) 3 ml IVFLUSH QSHIFT [facility] Last Admin: 08/25/23 08:15 Dose: 3 ml Documented By: MARTINEZ Labs 08/25/23 05:25 08/24/23 06:24 Labs: Laboratory Results - last 24 hr 08/24/23 08/24/23 08/25/23 15:55 19:59 05:25 MCV 86.4 MCH 28.6 MCHC 33.1 RDW 15.9 Plt Count 98 L MPV 11.5 Absolute Nucleated RBC 0.000 Nucleated RBC % (auto) 0.0 POC Glucose 223 H 79 08/25/23 08/25/23 07:42 11:11 MCV MCH MCHC RDW Plt Count MPV Absolute Nucleated RBC Nucleated RBC % (auto) POC Glucose 124 H 200 H Assessment and Plan (1) History of colorectal cancer: Status: Acute Plan d3 72yo M with hx anal SCC s/p chemo/XRT presenting with dizziness, rectal pain, and constipation rectal pain - Gen Surg + Onc consulted, plan EUA tomorrow, NPO after midnight; continue bowel regimen dizziness - resolved, orthostatics negative thrombocytopenia - mild, acute/chronic, improving nonobstructing R UVJ calculus, 4 mm - asymptomatic, should pass on own, Urology consult if becomess symptomatic CAD COD - continue DAPT, statin, metoprolol succinate chronic HFrEF, s/p ICD - continue metoprolol succinate + lisinopril; appears euvolemic HTN - continue metoprolol succinate + lisinopril, amlodipine discontinued BPH - continue finasteride DM - continue own insulin pump VTE ppx - SCDs dispo - eventually home with [facility] In my clinical judgment, the patient requires continued inpatient hospitalization for the following reasons: EUA Total time managing care of this patient today: 40 minutes. Quality Stroke Does the patient have a stroke diagnosis?: No VTE Prior VTE?: No VTE Risk Level:: Medical - moderate - high VTE Device Contraindication: N/A - Device Ordered VTE Drug Contraindication: N/A - Med Ordered
[2023-08-25 15:58] VITALS: BP 108/56; PULSE 57; RESP 18; TEMP 36.7; O2SAT 96
[2023-08-25 20:00] VITALS: BP 115/56; PULSE 53; RESP 20; TEMP 36.6; O2SAT 96
[2023-08-25 20:29] LABS: Glucose, Whole Blood 244 mg/dL (60-115)
[2023-08-25] MEDS: oxyCODONE HCl Immed Release 5 MG TABLET PO (22:17)
[2023-08-26] VITALS (13 sets, daily range): BP systolic 102–185; BP diastolic 50–84; PULSE 59–81; RESP 16–20; TEMP 36.2–37.1; O2SAT 94–100
[2023-08-26] MEDS: 0.9 % Sodium Chloride Flush 3 ML SYRINGE IVFLUSH ×3 (00:33→21:03)
--- NOTE | 2023-08-26 04:35 | PC.NURSE ---
patient reports he had about half a sunbutter and jelly after midnight. Pt was intended to be NPO for biopsy in the morning. PT reports its because his glucose was dropping. MD aware. said we can hang dextrose fluids if glucose drops again. MD said 70 was the threshold for hanging fluids.
[2023-08-26 06:19] LABS: Hematocrit 33.2 % (42.0-52.0); Hemoglobin 10.6 g/dl (14.0-18.0); Mean Corpuscular HGB Conc 31.9 g/dl (31.0-36.0); Mean Corpuscular Hemoglobin 27.8 pg (27.0-33.0); Mean Corpuscular Volume 87.1 fL (80.0-98.0); Mean Platelet Volume 10.8 fL (9.4-12.4); Red Blood Count 3.81 X10*6/uL (4.60-5.80); Red Cell Distribution Width 15.9 % (11.0-16.0); White Blood Count 3.5 X10*3/uL (4.8-10.8)
[2023-08-26 06:22] LABS: Platelet Count 98 X10*3/uL (160-400)
[2023-08-26 07:19] LABS: Glucose, Whole Blood 69 mg/dL (60-115)
[2023-08-26] MEDS: Dextrose 10 % 250 ML 750 ML IV (07:23)
--- NOTE | 2023-08-26 07:30 | PC.NURSE ---
Addendum entered by Rhianna Cook RN 08/26/23 07:55: blood sugar 144 at 7:47 Original Note: Blood sugar 69 , D10 IV infusing as per hypoglycemia protocol , MD Paulino notified . Pt stopped his insulin infusion pump at 7;30 am , pt is alert and oriented denied s/s hypoglycemia at this time
[2023-08-26 07:53] LABS: Glucose, Whole Blood 144 mg/dL (60-115)
[2023-08-26] MEDS: Metoprolol Succinate ER 25 MG TAB.ER.24H PO (08:31)
[2023-08-26] MEDS: Loratadine 10 MG TABLET PO (08:31)
[2023-08-26 08:32] LABS: Glucose, Whole Blood 137 mg/dL (60-115)
[2023-08-26 10:45] LABS: Glucose, Whole Blood 161 mg/dL (60-115)
--- NOTE | 2023-08-26 10:51 | MHC.CLN ---
F/U PT IS MODERATELY MALNOURISHED PT WITH MILDLY DEPLETED SUBCUTANEOUS FAT AND MUSCLE MASS, WITH 10% NONSIGNIFICANT WT LOSS WITH INCREASED NUTRITION NEEDS R/T RECENT CHEMO AND RAD TX PT CURRENTLY NPO FOR BIOPSY PREVIOUS PO INTAKE 50% WHEN DIET TO ADVANCE; RECOMMEND RE-STARTING ENSURE TID WITH MEALS TO PROVIDE 1050KCALS, 60G PROTEIN FOLLOWING FOR DIET ADVANCEMENT
--- NOTE | 2023-08-26 10:53 | MHC.CM.PN ---
Patient is not yet medically cleared for dc (exam under anesthesia today r/t rectal pain);PT recommends home with services and CM will continue to follow.
--- NOTE | 2023-08-26 11:27 | P.CONAN_ITS ---
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 TIA (transient ischemic attack) Peripheral artery disease Carotid arterial disease HFrEF (heart failure with reduced ejection fraction) ICD (implantable cardioverter-defibrillator) in place Coronary artery disease Elevated cholesterol HTN (hypertension) Insulin pump in place Diabetes Functional capacity: independent ambulation Family History Family History Father Mother Family history of problems with anesthesia: No Surgical History Surgical History History of intravascular stent placement History of left-sided carotid endarterectomy Hx of CABG History of Problems with Anesthesia: No Social History Social History Household Members: None Housing: Assisted Living Facility Housing Other:: winner housing Do you presently have visiting nurse or other home services: Yes (housekeeping) Alcohol intake: former Patient Tobacco Use Status: Former Tobacco user Tobacco use type: Cigarette Years Smoked: 4 Smoked in Last 30 Days: No Patient Interested in Nicotine Replacement: No Patient Given Instructions on How to Stop Smoking: No Second Hand Smoke Exposure: No Use of substances other than those prescribed or required for medical reasons: No Currently Displaying Signs/Symptoms of Drug Intoxication Withdrawal: No Other Past Substance Use Problem:: pt states Yeah, I've done all that stuff but not in last 30 yrs Any prior treatment program specific to substance use: No Have you been hit, kicked, punched, or otherwise hurt by someone within the past year? If so, by whom?: No Do you feel safe in your current relationship?: No Is there a partner from a previous relationship who is making you feel unsafe now?: No Are you made to feel afraid or neglected: No Advance Directives: No Advance Directives Information Provided: Yes Do you have a plan to hurt others: No Plan Recently lost weight without trying: Yes How much weight loss: 34pounds or more Eating poorly because of decreased appetite: No Nutrition screen score: 6 Nutrition Risks: No Nutritional Risk Poor oral hygiene: No service: Yes Current occupational status: retired Meds Allergies Allergy/AdvReac Type Severity Reaction Status Date / Time Sulfa (Sulfonamide Allergy Unknown Verified 08/21/23 23:30 Antibiotics) Active Medications: Current Medications Acetaminophen (Acetaminophen 325 Mg Tablet) 650 mg PO Q6H PRN PRN Reason: Pain, Mild (Pain Scale 1-3) Aspirin (Aspirin Enteric Coated 81 Mg Tablet.Dr) 81 mg PO DAILY [facility] Last Admin: 08/25/23 08:12 Dose: 81 mg Atorvastatin Calcium (Atorvastatin Calcium 80 Mg Tablet) 80 mg PO DAILY [facility] Last Admin: 08/25/23 08:12 Dose: 80 mg Clopidogrel Bisulfate (Clopidogrel Bisulfate 75 Mg Tablet) 37.5 mg PO DAILY [facility] Last Admin: 08/25/23 08:11 Dose: 37.5 mg Finasteride (Finasteride 5 Mg Tablet) 5 mg PO DAILY [facility] Last Admin: 08/25/23 08:11 Dose: 5 mg Glucose (Glucose Gel 15 Gm Gel..Gram.) 15 gm PO Q15M PRN; Protocol PRN Reason: per Hypoglycemia Standing Ord. Dextrose (D10) 250 mls @ 750 mls/hr IV Q15M PRN; Protocol PRN Reason: per Hypoglycemia Standing Ord. Last Admin: 08/26/23 07:23 Dose: 750 mls/hr Insulin Pump (Subcutaneous Insulin Pump) 1 each SUBCUT QIDACHS [facility]; Protocol Last Admin: 08/26/23 07:55 Dose: Not Given Lisinopril (Lisinopril 10 Mg Tablet) 10 mg PO DAILY [facility]; Protocol Last Admin: 08/25/23 08:12 Dose: 10 mg Loratadine (Loratadine 10 Mg Tablet) 10 mg PO DAILY [facility] Last Admin: 08/26/23 08:31 Dose: 10 mg Metoprolol Succinate (Metoprolol Succinate Er 25 Mg Tab.Er.24h) 25 mg PO DAILY [facility]; Protocol Last Admin: 08/26/23 08:31 Dose: 25 mg Non-Formulary Medication (Novolog (Insulin Aspart) 100 Units/Ml) 90 units SUBCUT DAILY [facility] Last Admin: 08/25/23 08:13 Dose: 90 units Ondansetron HCl (Ondansetron Hcl 4 Mg/2 Ml Vial) 4 mg IVPUSH Q8H PRN PRN Reason: Nausea and Vomiting Oxycodone HCl (Oxycodone Hcl Immed Release 5 Mg Tablet) 5 mg PO Q6H PRN PRN Reason: Pain, Severe (Pain Scale 7-10) Last Admin: 08/25/23 22:17 Dose: 5 mg Polyethylene Glycol (Polyethylene Glycol 3350 17 Gm Powd.Pack) 17 gm PO DAILY [facility] Last Admin: 08/25/23 08:25 Dose: Not Given Senna/Docusate Sodium (Sennosides/Docusate Sodium Tablet) 1 tab PO BID [facility] Last Admin: 08/25/23 22:00 Dose: Not Given Sodium Chloride (0.9 % Sodium Chloride Flush 3 Ml Syringe) 3 ml IVFLUSH QSHIFT [facility] Last Admin: 08/26/23 00:33 Dose: 3 ml Home Medications ?Medication ?Instructions ?Recorded ?Confirmed ?Last Taken ?Type amlodipine 5 mg tablet 5 mg PO DAILY 10/22/22 08/22/23 10/23/22 History aspirin 81 mg tablet,delayed 81 mg PO DAILY 10/22/22 08/22/23 10/15/22 History release cetirizine 10 mg tablet 10 mg PO DAILY 10/22/22 08/22/23 Unknown History clopidogrel 75 mg tablet 37.5 mg PO DAILY 10/22/22 08/22/23 10/15/22 History docusate sodium 100 mg capsule 100 mg PO BID 10/22/22 08/22/23 Unknown History lisinopril 20 mg tablet 5 mg PO DAILY 10/22/22 08/22/23 Unknown History metoprolol succinate 50 mg 25 mg PO DAILY 10/22/22 08/22/23 Unknown History tablet,extended release 24 hr rosuvastatin 20 mg tablet 20 mg PO DAILY 10/22/22 08/22/23 Unknown History escitalopram oxalate 5 mg tablet 5 mg PO DAILY 08/22/23 08/22/23 Unknown History gabapentin 100 mg capsule 200 mg PO BEDTIME PRN Muscle Spasm 08/22/23 08/22/23 Unknown History multivitamin with folic acid 400 1 tab PO DAILY 08/22/23 08/22/23 Unknown History mcg tablet (Daily-Camila (with folic acid)) insulin aspart U-100 100 unit/mL 90 unit subcut DAILY 08/23/23 08/23/23 Unknown History subcutaneous solution (Novolog U-100 Insulin aspart) subcutaneous insulin pump 08/23/23 08/23/23 Unknown History Exam Height,Weight and Vital Signs: Height 6 ft 2 in Weight 79.7 kg Last Vital Signs Temp 97.8 F 08/26/23 07:18 Pulse 72 08/26/23 07:18 Resp 20 08/26/23 07:18 BP 102/61 08/26/23 07:18 Pulse Ox 99 08/26/23 07:18 O2 Del Method Room Air 08/26/23 07:18 FiO2 97 08/23/23 03:49 Pertinent Lab Results Pertinent Lab Results: jLaboratory Tests 08/21/23 08/22/23 08/22/23 23:54 02:24 03:04 WBC 4.0 L RBC 3.97 L Hgb 11.3 L Hct 34.2 L MCV 86.1 MCH 28.5 MCHC 33.0 RDW 15.7 Plt Count 107 L MPV 9.8 Immature Gran % (Auto) 0.2 Neut % (Auto) 74.1 H Lymph % (Auto) 7.2 L Wheeler % (Auto) 11.0 Eos % (Auto) 6.5 H Baso % (Auto) 1.0 Lymph # (Auto) 0.3 L Wheeler # (Auto) 0.4 Eos # (Auto) 0.3 Baso # (Auto) 0.0 Abs Immat Gran (auto) 0.01 Absolute Neuts (auto) 3.0 Absolute Nucleated RBC 0.000 Nucleated RBC % (auto) 0.0 Hold Purple Top Sodium 139 Potassium 4.1 Chloride 107 Carbon Dioxide 21 L Anion Gap 15 BUN 15 Creatinine 0.67 Estim Creat Clear Calc 112.4 Estimated GFR > 60 POC Glucose Random Glucose 90 Calcium 9.3 Total Bilirubin 0.8 AST 17 ALT 14 Alkaline Phosphatase 63 Troponin I High Sens 8.9 Total Protein 6.3 L Albumin 3.8 Urine Color Dark Yellow Urine Appearance Clear Urine pH 5.5 Ur Specific [place] 1.025 Urine Protein 30 (1+) H Urine Glucose (UA) Negative Urine Ketones Negative Urine Blood Negative Urine Nitrite Negative Ur Leukocyte Esterase Negative Urine RBC 0-2 Urine WBC 0-5 Ur Squamous Epith Cells 0-2 Urine Bacteria None Seen Hyaline Casts 0-2 Stool Occult Blood NEGATIVE 08/22/23 08/22/23 08/23/23 14:06 20:32 05:43 WBC 3.3 L RBC 3.75 L Hgb 10.5 L Hct 32.5 L MCV 86.7 MCH 28.0 MCHC 32.3 RDW 15.6 Plt Count 87 L MPV 9.6 Immature Gran % (Auto) 0.3 Neut % (Auto) 67.3 Lymph % (Auto) 11.7 L Wheeler % (Auto) 11.7 H Eos % (Auto) 8.1 H Baso % (Auto) 0.9 Lymph # (Auto) 0.4 L Wheeler # (Auto) 0.4 Eos # (Auto) 0.3 Baso # (Auto) 0.0 Abs Immat Gran (auto) 0.01 Absolute Neuts (auto) 2.3 Absolute Nucleated RBC 0.000 Nucleated RBC % (auto) 0.0 Hold Purple Top Sodium 139 Potassium 4.2 Chloride 105 Carbon Dioxide 24 Anion Gap 14 BUN 11 Creatinine 0.88 Estim Creat Clear Calc 84.2 Estimated GFR > 60 POC Glucose 233 H 151 H Random Glucose 190 H Calcium 8.8 Total Bilirubin AST ALT Alkaline Phosphatase Troponin I High Sens Total Protein Albumin Urine Color Urine Appearance Urine pH Ur Specific [place] Urine Protein Urine Glucose (UA) Urine Ketones Urine Blood Urine Nitrite Ur Leukocyte Esterase Urine RBC Urine WBC Ur Squamous Epith Cells Urine Bacteria Hyaline Casts Stool Occult Blood 08/23/23 08/23/23 08/23/23 07:15 09:06 10:16 WBC RBC Hgb Hct MCV MCH MCHC RDW Plt Count MPV Immature Gran % (Auto) Neut % (Auto) Lymph % (Auto) Wheeler % (Auto) Eos % (Auto) Baso % (Auto) Lymph # (Auto) Wheeler # (Auto) Eos # (Auto) Baso # (Auto) Abs Immat Gran (auto) Absolute Neuts (auto) Absolute Nucleated RBC Nucleated RBC % (auto) Hold Purple Top Sodium Potassium Chloride Carbon Dioxide Anion Gap BUN Creatinine Estim Creat Clear Calc Estimated GFR POC Glucose 184 H 209 H 306 H Random Glucose Calcium Total Bilirubin AST ALT Alkaline Phosphatase Troponin I High Sens Total Protein Albumin Urine Color Urine Appearance Urine pH Ur Specific [place] Urine Protein Urine Glucose (UA) Urine Ketones Urine Blood Urine Nitrite Ur Leukocyte Esterase Urine RBC Urine WBC Ur Squamous Epith Cells Urine Bacteria Hyaline Casts Stool Occult Blood 08/23/23 08/23/23 08/23/23 12:04 16:06 20:22 WBC RBC Hgb Hct MCV MCH MCHC RDW Plt Count MPV Immature Gran % (Auto) Neut % (Auto) Lymph % (Auto) Wheeler % (Auto) Eos % (Auto) Baso % (Auto) Lymph # (Auto) Wheeler # (Auto) Eos # (Auto) Baso # (Auto) Abs Immat Gran (auto) Absolute Neuts (auto) Absolute Nucleated RBC Nucleated RBC % (auto) Hold Purple Top Sodium Potassium Chloride Carbon Dioxide Anion Gap BUN Creatinine Estim Creat Clear Calc Estimated GFR POC Glucose 278 H 86 69 Random Glucose Calcium Total Bilirubin AST ALT Alkaline Phosphatase Troponin I High Sens Total Protein Albumin Urine Color Urine Appearance Urine pH Ur Specific [place] Urine Protein Urine Glucose (UA) Urine Ketones Urine Blood Urine Nitrite Ur Leukocyte Esterase Urine RBC Urine WBC Ur Squamous Epith Cells Urine Bacteria Hyaline Casts Stool Occult Blood 08/23/23 08/23/23 08/23/23 21:03 21:35 23:21 WBC RBC Hgb Hct MCV MCH MCHC RDW Plt Count MPV Immature Gran % (Auto) Neut % (Auto) Lymph % (Auto) Wheeler % (Auto) Eos % (Auto) Baso % (Auto) Lymph # (Auto) Wheeler # (Auto) Eos # (Auto) Baso # (Auto) Abs Immat Gran (auto) Absolute Neuts (auto) Absolute Nucleated RBC Nucleated RBC % (auto) Hold Purple Top Sodium Potassium Chloride Carbon Dioxide Anion Gap BUN Creatinine Estim Creat Clear Calc Estimated GFR POC Glucose 70 90 89 Random Glucose Calcium Total Bilirubin AST ALT Alkaline Phosphatase Troponin I High Sens Total Protein Albumin Urine Color Urine Appearance Urine pH Ur Specific [place] Urine Protein Urine Glucose (UA) Urine Ketones Urine Blood Urine Nitrite Ur Leukocyte Esterase Urine RBC Urine WBC Ur Squamous Epith Cells Urine Bacteria Hyaline Casts Stool Occult Blood 08/24/23 08/24/23 08/24/23 03:27 06:24 07:07 WBC RBC Hgb Hct MCV MCH MCHC RDW Plt Count MPV Immature Gran % (Auto) Neut % (Auto) Lymph % (Auto) [place] % (Auto) Eos % (Auto) Baso % (Auto) Lymph # (Auto) Wheeler # (Auto) Eos # (Auto) Baso # (Auto) Abs Immat Gran (auto) Absolute Neuts (auto) Absolute Nucleated RBC Nucleated RBC % (auto) Hold Purple Top SEE NOTE Sodium 140 Potassium 4.2 Chloride 106 Carbon Dioxide 25 Anion Gap 13 BUN 15 Creatinine 0.81 Estim Creat Clear Calc 91.5 Estimated GFR > 60 POC Glucose 74 121 H Random Glucose 97 Calcium 8.6 Total Bilirubin AST ALT Alkaline Phosphatase Troponin I High Sens Total Protein Albumin Urine Color Urine Appearance Urine pH Ur Specific [place] Urine Protein Urine Glucose (UA) Urine Ketones Urine Blood Urine Nitrite Ur Leukocyte Esterase Urine RBC Urine WBC Ur Squamous Epith Cells Urine Bacteria Hyaline Casts Stool Occult Blood 08/24/23 08/24/23 08/24/23 11:22 15:55 19:59 WBC RBC Hgb Hct MCV MCH MCHC RDW Plt Count MPV Immature Gran % (Auto) Neut % (Auto) Lymph % (Auto) Wheeler % (Auto) Eos % (Auto) Baso % (Auto) Lymph # (Auto) Wheeler # (Auto) Eos # (Auto) Baso # (Auto) Abs Immat Gran (auto) Absolute Neuts (auto) Absolute Nucleated RBC Nucleated RBC % (auto) Hold Purple Top Sodium Potassium Chloride Carbon Dioxide Anion Gap BUN Creatinine Estim Creat Clear Calc Estimated GFR POC Glucose 254 H 223 H 79 Random Glucose Calcium Total Bilirubin AST ALT Alkaline Phosphatase Troponin I High Sens Total Protein Albumin Urine Color Urine Appearance Urine pH Ur Specific [place] Urine Protein Urine Glucose (UA) Urine Ketones Urine Blood Urine Nitrite Ur Leukocyte Esterase Urine RBC Urine WBC Ur Squamous Epith Cells Urine Bacteria Hyaline Casts Stool Occult Blood 08/25/23 08/25/23 08/25/23 05:25 07:42 11:11 WBC 4.4 L RBC 3.74 L Hgb 10.7 L Hct 32.3 L MCV 86.4 MCH 28.6 MCHC 33.1 RDW 15.9 Plt Count 98 L MPV 11.5 Immature Gran % (Auto) Neut % (Auto) Lymph % (Auto) [place] % (Auto) Eos % (Auto) Baso % (Auto) Lymph # (Auto) [place] # (Auto) Eos # (Auto) Baso # (Auto) Abs Immat Gran (auto) Absolute Neuts (auto) Absolute Nucleated RBC 0.000 Nucleated RBC % (auto) 0.0 Hold Purple Top Sodium Potassium Chloride Carbon Dioxide Anion Gap BUN Creatinine Estim Creat Clear Calc Estimated GFR POC Glucose 124 H 200 H Random Glucose Calcium Total Bilirubin AST ALT Alkaline Phosphatase Troponin I High Sens Total Protein Albumin Urine Color Urine Appearance Urine pH Ur Specific [place] Urine Protein Urine Glucose (UA) Urine Ketones Urine Blood Urine Nitrite Ur Leukocyte Esterase Urine RBC Urine WBC Ur Squamous Epith Cells Urine Bacteria Hyaline Casts Stool Occult Blood 08/25/23 08/26/23 08/26/23 20:19 06:02 06:53 WBC 3.5 L RBC 3.81 L Hgb 10.6 L Hct 33.2 L MCV 87.1 MCH 27.8 MCHC 31.9 RDW 15.9 Plt Count 98 L MPV 10.8 Immature Gran % (Auto) Neut % (Auto) Lymph % (Auto) [place] % (Auto) Eos % (Auto) Baso % (Auto) Lymph # (Auto) [place] # (Auto) Eos # (Auto) Baso # (Auto) Abs Immat Gran (auto) Absolute Neuts (auto) Absolute Nucleated RBC 0.000 Nucleated RBC % (auto) 0.0 Hold Purple Top Sodium Potassium Chloride Carbon Dioxide Anion Gap BUN Creatinine Estim Creat Clear Calc Estimated GFR POC Glucose 244 H 69 Random Glucose Calcium Total Bilirubin AST ALT Alkaline Phosphatase Troponin I High Sens Total Protein Albumin Urine Color Urine Appearance Urine pH Ur Specific [place] Urine Protein Urine Glucose (UA) Urine Ketones Urine Blood Urine Nitrite Ur Leukocyte Esterase Urine RBC Urine WBC Ur Squamous Epith Cells Urine Bacteria Hyaline Casts Stool Occult Blood 08/26/23 08/26/23 08/26/23 07:47 08:28 10:39 WBC RBC Hgb Hct MCV MCH MCHC RDW Plt Count MPV Immature Gran % (Auto) Neut % (Auto) Lymph % (Auto) [place] % (Auto) Eos % (Auto) Baso % (Auto) Lymph # (Auto) Wheeler # (Auto) Eos # (Auto) Baso # (Auto) Abs Immat Gran (auto) Absolute Neuts (auto) Absolute Nucleated RBC Nucleated RBC % (auto) Hold Purple Top Sodium Potassium Chloride Carbon Dioxide Anion Gap BUN Creatinine Estim Creat Clear Calc Estimated GFR POC Glucose 144 H 137 H 161 H Random Glucose Calcium Total Bilirubin AST ALT Alkaline Phosphatase Troponin I High Sens Total Protein Albumin Urine Color Urine Appearance Urine pH Ur Specific [place] Urine Protein Urine Glucose (UA) Urine Ketones Urine Blood Urine Nitrite Ur Leukocyte Esterase Urine RBC Urine WBC Ur Squamous Epith Cells Urine Bacteria Hyaline Casts Stool Occult Blood Airway Mallampati Class: III TM Dist: >3cm Neck ROM: Full Assessment and Plan Assessment Anesthesia Assessment: Anesthesia Plan Discussed and Chart Reviewed Final Anesthetic Review Family History of Problems with Anesthesia: No History of Problems with Anesthesia: No NPO: Yes ASA Class: III Final Preanesthetic Review: No Changes in Pt Med Stat, Meds/Allgs Chart Reviewed, Consent Obtained/Reviewed and Anes Risks/Benef Reviewed Patient Risk: Intermediate Procedure Risk: Low Anesthetic Plan Anesthetic Plan: GA Disposition: Standard PACU
--- NOTE | 2023-08-26 11:28 | MHC.SHP ---
Pre-Procedural Eval Section A - 24 Hr Update-Section A only Date of Service: 08/26/23 The patient is an INPATIENT: Yes Changes since office visit: Yes Patient answered all questions The patient has been examined within 24 hours of the surgical procedure. The History & Physical has been completed within 30 days and I have reviewed it.: Yes Section B - Complete if H&P > 30 days Chief Complaint: Dizziness, weakness, rectal pain Allergies: Allergies Allergy/AdvReac Type Severity Reaction Status Date / Time Sulfa (Sulfonamide Allergy Unknown Verified 08/21/23 23:30 Antibiotics) Plan I have reviewed the history and physical and performed a pertinent physical examination on my patient. No changes have occurred unless specified. Time Spent With Patient Time: Total time managing care of this patient today ____ minutes.
[2023-08-26 11:39] LABS: Glucose, Whole Blood 181 mg/dL (60-115)
--- NOTE | 2023-08-26 12:23 | P.OP_ITS ---
Operative Note Operative Note Date of Service: 08/26/23 Narrative: Preop diagnosis: Squamous cell anal carcinoma, post chemotherapy and radiation Postop diagnosis: The same, with persistent ulcerating lesion on the left lateral anal canal Procedure: Exam under anesthesia, biopsy of anal lesion Surgeon: Leonardo Ma MD The patient is a 72-year-old male with known squamous cell anal carcinoma, I had undergone chemotherapy and radiation. He had completed this but now has pe rsistent pain in the anus. I therefore was requested to do an exam under anesthesia to see response to treatment. He understood the technique of the planned procedure as well as the risks, benefits, and alternatives He was brought to the operating room and placed in prone alejandro-knife position under general anesthesia via endotracheal tube. The buttocks were retracted with wide tape laterally. The perianal area was prepped in the usual sterile fashion. A surgical time-out was done. No preop antibiotics was ordered Examination of the anal refused did not reveal any lesions. I inserted the small Lozano retractor. I examined the anal canal circumferentially. On the left lateral anal canal all the way to just before the anal verge was note of an ulcerating lesion, very indurated and deep, about 1.2 cm long and about point 8 cm wide. I did biopsies of this by removing loose tissue at the edges this was sent as a specimen. There was noted good hemostasis. There were no other lesions in the anal canal. There was no bleeding. The procedure was then completed The patient tolerated procedure well. There were no immediate complications We will await for the path report. This likely persistence of his anal squamous cell carcinoma with poor response to treatment.
[2023-08-26 13:35] LABS: Glucose, Whole Blood 185 mg/dL (60-115)
--- NOTE | 2023-08-26 13:41 | PC.NURSE ---
pt back from the procedure to room 457, POC 185 via finger stick, pt alert and oriented , sleepy , not able to place his own insulin pump back on , made DR Paulino aware
--- NOTE | 2023-08-26 13:57 | HO.PM.IMPN ---
Subjective Subjective Date of Service: 08/26/23 Interval History: had BMs some rectal pain no bleeding sleepy after EUA which showed ulcerated anal lesion Review of Systems Review of Systems: Yes all other systems are reviewed and are negative Physical Exam Vital Signs: Vital Signs: Last Vital Signs Temp 97.4 F 08/26/23 13:37 Pulse 65 08/26/23 13:37 Resp 17 08/26/23 13:37 BP 128/69 08/26/23 13:37 Pulse Ox 94 08/26/23 13:37 O2 Del Method Room Air 08/26/23 13:37 O2 Flow Rate 2 08/26/23 13:15 FiO2 97 08/23/23 03:49 BMI result Body Mass Index 22.6 Gen: in no acute distress HEENT: sclera anicteric, moist mucus membranes Neck: supple Lungs: clear to auscultation bilaterally Heart: regular rate and rhythm, no murmurs Abd: soft, non-tender, non-distended Ext: no edema Skin: warm/well-perfused Neuro: alert and oriented x3, no focal findings Psych: appropriate affect Objective Data Active Medications Acetaminophen (Acetaminophen 325 Mg Tablet) 650 mg PO Q6H PRN PRN Reason: Pain, Mild (Pain Scale 1-3) Aspirin (Aspirin Enteric Coated 81 Mg Tablet.) 81 mg PO DAILY [facility] Last Admin: 08/25/23 08:12 Dose: 81 mg Documented By: MARTINEZ Atorvastatin Calcium (Atorvastatin Calcium 80 Mg Tablet) 80 mg PO DAILY [facility] Last Admin: 08/25/23 08:12 Dose: 80 mg Documented By: MARTINEZ Clopidogrel Bisulfate (Clopidogrel Bisulfate 75 Mg Tablet) 37.5 mg PO DAILY [facility] Last Admin: 08/25/23 08:11 Dose: 37.5 mg Documented By: MARTINEZ Fentanyl (Fentanyl Citrate/Pf 100 Mcg/2 Ml Vial) 50 mcg IVPUSH Q5M PRN; Protocol PRN Reason: Pain, Severe (Pain Scale 7-10) Stop: 08/26/23 17:29 Finasteride (Finasteride 5 Mg Tablet) 5 mg PO DAILY [facility] Last Admin: 08/25/23 08:11 Dose: 5 mg Documented By: MARTINEZ Glucose (Glucose Gel 15 Gm Gel..Gram.) 15 gm PO Q15M PRN; Protocol PRN Reason: per Hypoglycemia Standing Ord. Dextrose (D10) 250 mls @ 750 mls/hr IV Q15M PRN; Protocol PRN Reason: per Hypoglycemia Standing Ord. Last Infusion: 08/26/23 07:45 Dose: Infused Documented By: PREMA Insulin Pump (Subcutaneous Insulin Pump) 1 each SUBCUT QIDACHS [facility]; Protocol Last Admin: 08/26/23 07:55 Dose: Not Given Documented By: PREMA Non-Admin Reason: Physician Held Med Lisinopril (Lisinopril 10 Mg Tablet) 10 mg PO DAILY [facility]; Protocol Last Admin: 08/25/23 08:12 Dose: 10 mg Documented By: MARTINEZ Loratadine (Loratadine 10 Mg Tablet) 10 mg PO DAILY [facility] Last Admin: 08/26/23 08:31 Dose: 10 mg Documented By: PREMA Metoprolol Succinate (Metoprolol Succinate Er 25 Mg Tab.Er.24h) 25 mg PO DAILY [facility]; Protocol Last Admin: 08/26/23 08:31 Dose: 25 mg Documented By: PREMA Morphine Sulfate (Morphine Sulfate 2 Mg/Ml Cartridge) 2 mg IVPUSH Q3H PRN; Protocol PRN Reason: Pain, Severe (Pain Scale 7-10) Non-Formulary Medication (Novolog (Insulin Aspart) 100 Units/Ml) 90 units SUBCUT DAILY [facility] Last Admin: 08/25/23 08:13 Dose: 90 units Documented By: MARTINEZ Ondansetron HCl (Ondansetron Hcl 4 Mg/2 Ml Vial) 4 mg IVPUSH Q8H PRN PRN Reason: Nausea and Vomiting Ondansetron HCl (Ondansetron Hcl 4 Mg/2 Ml Vial) 4 mg IVPUSH ONCE PRN PRN Reason: Nausea and Vomiting Stop: 08/26/23 17:29 Oxycodone HCl (Oxycodone Hcl Immed Release 5 Mg Tablet) 5 mg PO Q6H PRN PRN Reason: Pain, Severe (Pain Scale 7-10) Last Admin: 08/25/23 22:17 Dose: 5 mg Documented By: NGUYEN Polyethylene Glycol (Polyethylene Glycol 3350 17 Gm Powd.Pack) 17 gm PO DAILY [facility] Last Admin: 08/25/23 08:25 Dose: Not Given Documented By: HO.FOSTEKR Non-Admin Reason: Patient Refused Senna/Docusate Sodium (Sennosides/Docusate Sodium Tablet) 1 tab PO BID [facility] Last Admin: 08/25/23 22:00 Dose: Not Given Documented By: NGUYEN Non-Admin Reason: Patient Refused Sodium Chloride (0.9 % Sodium Chloride Flush 3 Ml Syringe) 3 ml IVFLUSH QSHIFT [facility] Last Admin: 08/26/23 00:33 Dose: 3 ml Documented By: NGUYEN Labs 08/26/23 06:02 08/24/23 06:24 Labs: Laboratory Results - last 24 hr 08/25/23 08/26/23 08/26/23 20:19 06:02 06:53 MCV 87.1 MCH 27.8 MCHC 31.9 RDW 15.9 Plt Count 98 L MPV 10.8 Absolute Nucleated RBC 0.000 Nucleated RBC % (auto) 0.0 POC Glucose 244 H 69 08/26/23 08/26/23 08/26/23 07:47 08:28 10:39 MCV MCH MCHC RDW Plt Count MPV Absolute Nucleated RBC Nucleated RBC % (auto) POC Glucose 144 H 137 H 161 H 08/26/23 08/26/23 11:35 13:32 MCV MCH MCHC RDW Plt Count MPV Absolute Nucleated RBC Nucleated RBC % (auto) POC Glucose 181 H 185 H Assessment and Plan (1) History of colorectal cancer: Status: Acute Plan d4 72yo M with hx anal SCC s/p chemo/XRT presenting with dizziness, rectal pain, and constipation rectal pain - Gen Surg + Onc consulted, EUA today showed: On the left lateral anal canal all the way to just before the anal verge was note of an ulcerating lesion, very indurated and deep, about 1.2 cm long and about point 8 cm wide. Biopsies taken, hemostasis achieved. Will need to follow up with Luisa Colmenares and Juan Carlos. dizziness - resolved, orthostatics negative thrombocytopenia - mild, acute/chronic, improving nonobstructing R UVJ calculus, 4 mm - asymptomatic, should pass on own, Urology consult if becomes symptomatic CAD COD - continue DAPT, statin, metoprolol succinate chronic HFrEF, s/p ICD - continue metoprolol succinate + lisinopril; appears euvolemic HTN - continue metoprolol succinate + lisinopril, amlodipine discontinued BPH - continue finasteride DM - continue own insulin pump [stopped this AM after became slightly hypoglycemic] VTE ppx - SCDs dispo - eventually home with VNA In my clinical judgment, the patient requires continued inpatient hospitalization for the following reasons: postop recovery Total time managing care of this patient today: 35 minutes. Quality Stroke Does the patient have a stroke diagnosis?: No VTE Prior VTE?: No VTE Risk Level:: Medical - moderate - high VTE Device Contraindication: N/A - Device Ordered VTE Drug Contraindication: N/A - Med Ordered
--- NOTE | 2023-08-26 14:56 | PC.NURSE ---
patient awake now , he is getting to set up his Insulin pump now
[2023-08-26 15:10] LABS: Glucose, Whole Blood 249 mg/dL (60-115)
[2023-08-26] MEDS: lisinopriL 10 MG TABLET PO (15:22)
[2023-08-26] MEDS: Aspirin Enteric Coated 81 MG TABLET.DR PO (15:22)
[2023-08-26] MEDS: Clopidogrel Bisulfate 75 MG TABLET 37.5 MG PO (15:22)
[2023-08-26] MEDS: Atorvastatin Calcium 80 MG TABLET PO (15:23)
[2023-08-26] MEDS: Finasteride 5 MG TABLET PO (15:24)
[2023-08-26] MEDS: Subcutaneous Insulin Pump 1 EACH SUBCUT ×2 (15:40→21:02)
--- NOTE | 2023-08-26 15:41 | PC.NURSE ---
POC 249 , pt restarted his own Insulin pump Novolog basal rate 0.8 units/hr , gave himself bolus 3.3 units now.
[2023-08-26] MEDS: polyethylene glycoL 3350 17 GM POWD.PACK PO (17:10)
[2023-08-26] MEDS: oxyCODONE HCl Immed Release 5 MG TABLET PO (18:26)
[2023-08-26] MEDS: Sennosides/Docusate Sodium TABLET 1 TAB PO (20:38)
[2023-08-26 21:07] LABS: Glucose, Whole Blood 332 mg/dL (60-115)
[2023-08-27] VITALS: BP 131/67; PULSE 47; RESP 18; TEMP 36.7; O2SAT 97
[2023-08-27 03:25] VITALS: BP 133/77; PULSE 61; RESP 18; TEMP 36.3; O2SAT 100
[2023-08-27] MEDS: oxyCODONE HCl Immed Release 5 MG TABLET PO ×2 (03:52→11:11)
[2023-08-27 06:57] LABS: Glucose, Whole Blood 60 mg/dL (60-115)
[2023-08-27 07:07] LABS: Glucose, Whole Blood 211 mg/dL (60-115)
[2023-08-27 07:23] VITALS: BP 124/60; PULSE 58; RESP 20; TEMP 36.3; O2SAT 99
[2023-08-27] MEDS: 0.9 % Sodium Chloride Flush 3 ML SYRINGE IVFLUSH (07:50)
[2023-08-27] MEDS: Metoprolol Succinate ER 25 MG TAB.ER.24H PO (07:51)
[2023-08-27] MEDS: Aspirin Enteric Coated 81 MG TABLET.DR PO (07:51)
[2023-08-27] MEDS: Loratadine 10 MG TABLET PO (07:52)
[2023-08-27] MEDS: Clopidogrel Bisulfate 75 MG TABLET 37.5 MG PO (07:52)
[2023-08-27] MEDS: Sennosides/Docusate Sodium TABLET 1 TAB PO (07:52)
[2023-08-27] MEDS: polyethylene glycoL 3350 17 GM POWD.PACK PO (07:52)
[2023-08-27] MEDS: Atorvastatin Calcium 80 MG TABLET PO (07:52)
[2023-08-27] MEDS: lisinopriL 10 MG TABLET PO (07:52)
[2023-08-27] MEDS: Finasteride 5 MG TABLET PO (07:53)
[2023-08-27] MEDS: Subcutaneous Insulin Pump 1 EACH SUBCUT ×2 (08:40→12:22)
--- NOTE | 2023-08-27 08:47 | HO.POSTANES ---
Post Anesthesia Evaluation Post Anesthesia Evaluation Date of Service: 08/27/23 Vital Signs: Vital Signs Temp Pulse Resp BP Pulse Ox O2 Del Method 08/27/23 07:23 97.3 F 58 20 124/60 99 Room Air 08/27/23 03:25 97.3 F 61 18 133/77 100 Room Air 08/27/23 00:00 98.1 F 47 L 18 131/67 97 Room Air Anesthesia: General Endotracheal-GETA Mental Status: Awake Pain Control: Satisfactory Nausea/Vomiting: None Hydration: Adequate Anesthesia-Related Issues: No Anes. Related Issues
--- NOTE | 2023-08-27 10:23 | MHC.CM.PN ---
Per ROUNDS discussion, Patient is medically cleared for dc to home today, with services.A referral was made to [facility], who has been informed of today's dc. Nayely yang set up for 1 PM; MD and RN are aware.
[2023-08-27 10:36] VITALS: PULSE 55; O2SAT 100
[2023-08-27 11:00] LABS: Glucose, Whole Blood 158 mg/dL (60-115)
[2023-08-27 11:07] VITALS: BP 127/64; PULSE 75; RESP 20; TEMP 36.1; O2SAT 98
--- NOTE | 2023-08-27 11:28 | MHC.CLN ---
F/U PT IS MODERATELY MALNOURISHED PT WITH MILDLY DEPLETED SUBCUTANEOUS FAT AND MUSCLE MASS, WITH 10% NONSIGNIFICANT WT LOSS WITH INCREASED NUTRITION NEEDS R/T RECENT CHEMO AND RAD TX DIET RESUMES TO REGULAR PER SX PREVIOUS PO INTAKE 50% RECOMMEND RE-STARTING ENSURE TID WITH MEALS TO PROVIDE 1050KCALS, 60G PROTEIN MONITOR PO INTAKE AND ENCOURAGE SUPPLEMENT
--- NOTE | 2023-08-27 12:33 | W.MHC.F2F ---
Service Date Service Date: 08/27/23 Encounter Date of encounter: 08/27/23 Reasons for Services Signs and symptoms assessed: Gross Deconditioning, Impaired Bed Mobility, Impaired Gait Pattern, Impaired Safety ,Impaired Standing Balance, Impaired Transfer Ability,Muscle Weakness,Pain Reason for [place] [facility]: medication management, medication treatment and teach disease management Reason for physical therapy: home safety and mobility, therapeutic exercises, gait/transfer training, assess need for DME, ADL training and energy conservation MD Overseeing Care: Dari Larsen Homebound: Leaving the home is medically contraindicated at this time without the asist of a device and/or another person due th the listed conditions above and below. Reason homebound: unsteady gait / fall risk and weakness related to hospital stay Homebound supporting statement: Bed Mobility, Transfer Training,Gait Training,Stair Training, Therapeutic Activities, Therapeutic Exercise,Neuro Re-education, Patient Education, Safety,Balance Certification: Based on the above findings, I certify that this patient is confined to the home and needs intermittent [facility] [facility] care, physical therapy and/or speech therapy, or continues to need occupational therapy. The patient is under my care, and I have initiated the establishment of the plan of care. The patient will be followed by a physician who will periodically review the plan of care. Time Spent With Patient Time: Total time managing care of this patient today ____ minutes.
--- NOTE | 2023-08-27 12:35 | PM.DS ---
DS: Providers Provider Date of Service: 08/27/23 Date of admission: 08/23/23 11:59 Date of discharge: 08/27/23 Primary care physician: Dari Larsen MD Consults: 08/22/23 09:27 Consult to Hematology / Oncology Routine Consulting Provider: Luba Colmenares Reason for consultation: history of rectal ca, now presenting with constipation and rectal pain, 08/22/23 22:02 Consult to Care Team Routine Comment: Reason for consultation: frequent violent references, mostly protective or self protective context 08/23/23 10:21 Consult to General Surgery Routine Consulting Provider: [facility] Reason for consultation: constipation, rectal cancer ?EUA for recurrance Has provider been notified: Yes DS: Diagnosis Discharge Diagnosis (1) Anal squamous cell carcinoma: Status: Acute (2) Pain, rectal: Status: Acute DS: Summary Hospital Course Hospital Course: From the history and physical by the admitting hospitalist, Steven Beltran, 08/22/23: The patient is a 72 year old male with a PMH of rectal cancer s/p chemo and radiation (last treatment in February 2023) who presents to [facility] with several complaints. He states over the last month or so, he has been feeling increasingly dizzy and off balance . He reports that he has required his cane more frequently and has reported some falls. He denies any loss of consciousness. He denies any headache or blurred vision. He denies other focal neurological symptoms. His second complaint is of rectal pain. He initially states that he noticed it over the last week or two, but upon further thinking, he feels that this has also been going on for over a month. He denies any blood. He denies any abdominal pain but reports severe rectal pain with defecation . He endorses constipation and using laxatives intermittently. He reports last BM the night before admission. He denies nausea/vomiting. He reports a good appetite. In the ED work up included a CT of the abdomen and pelvis which showed large stool burden with a distended rectum (see report for full findings). CXR without acute findings. Lab work showed pancytopenia including chronic thrombocytopenia. He was evaluated by Gen Surg in the ED and now will be admitted under observation for further evaluation. 72yo M with hx anal SCC s/p chemo/XRT presenting with dizziness, rectal pain, and constipation. Medical history also notable for CAD, carotid occlusive disease, chronic HFrEF s/p ICD, HTN, BPH, and DM managed with an insulin pump. He was admitted for severe rectal pain. General Surgery and Oncology were consulted. He underwent EUA on 08/26/[address] Leonardo Ma. Exam showed: On the left lateral anal canal all the way to just before the anal verge was note of an ulcerating lesion, very indurated and deep, about 1.2 cm long and about point 8 cm wide. Biopsies were taken and hemostasis achieved. He will need to follow up with Dr Colmenares as well as his surgeon at [facility], Dr Rangel. Dizziness resolved; orthostatics were negative. Thrombocytopenia was mild and improved. He was found to have an incidental nonobstructing R UVJ calculus without symptoms and should pass on its own. He was discharged home with VNA services and will follow up with Dr Colmenares on 09/02/23 at 1:20pm to discuss pathology results from the biopsy and to plan further treatment options. Time Attestation Discharge Coordination Time (in mins): 40 Quality: Safe Use of Opioids Does Pt have an Active Cancer Diagnosis on the Problem List?: Yes Opioid Measure Date for [facility] Report: 07/28/23 Opioid Measure Time for [facility] Report: 12:39 Quality: Stroke Does the patient have a stroke diagnosis?: No Physical Exam Vital Signs: Vital Signs: Last Vital Signs Temp 97.0 F 08/27/23 11:07 Pulse 75 08/27/23 11:07 Resp 20 08/27/23 11:07 BP 127/64 08/27/23 11:07 Pulse Ox 98 08/27/23 11:07 O2 Del Method Room Air 08/27/23 11:07 O2 Flow Rate 2 08/26/23 13:15 FiO2 97 08/23/23 03:49 BMI result Body Mass Index 22.6 Gen: in no acute distress HEENT: sclera anicteric, moist mucus membranes Neck: supple Lungs: clear to auscultation bilaterally Heart: regular rate and rhythm, no murmurs Abd: soft, non-tender, non-distended Ext: no edema Skin: warm/well-perfused Neuro: alert and oriented x3, no focal findings Psych: appropriate affect DS: Data Data Completed and Pending Completed studies during hospitalization [Text1]: Laboratory Results WBC 3.5 X10*3/uL (4.8-10.8) L 08/26/23 06:02 RBC 3.81 X10*6/uL (4.60-5.80) L 08/26/23 06:02 Hgb 10.6 g/dl (14.0-18.0) L 08/26/23 06:02 Hct 33.2 % (42.0-52.0) L 08/26/23 06:02 MCV 87.1 fL (80.0-98.0) 08/26/23 06:02 MCH 27.8 pg (27.0-33.0) 08/26/23 06:02 MCHC 31.9 g/dl (31.0-36.0) 08/26/23 06:02 RDW 15.9 % (11.0-16.0) 08/26/23 06:02 Plt Count 98 X10*3/uL (160-400) L 08/26/23 06:02 MPV 10.8 fL (9.4-12.4) 08/26/23 06:02 Immature Gran % (Auto) 0.3 % (0.0-0.4) 08/23/23 05:43 Neut % (Auto) 67.3 % (45-73) 08/23/23 05:43 Lymph % (Auto) 11.7 % (20-40) L 08/23/23 05:43 [place] % (Auto) 11.7 % (2-11) H 08/23/23 05:43 Eos % (Auto) 8.1 % (0-4) H 08/23/23 05:43 Baso % (Auto) 0.9 % (0-2) 08/23/23 05:43 Lymph # (Auto) 0.4 X10*3/uL (1.2-4.9) L 08/23/23 05:43 [place] # (Auto) 0.4 X10*3/uL (0.1-1.2) 08/23/23 05:43 Eos # (Auto) 0.3 X10*3/uL (0.0-0.4) 08/23/23 05:43 Baso # (Auto) 0.0 X10*3/uL (0.0-0.2) 08/23/23 05:43 Abs Immat Gran (auto) 0.01 X10*3/uL (0.00-0.03) 08/23/23 05:43 Absolute Neuts (auto) 2.3 x10*3/uL (2.0-8.3) 08/23/23 05:43 Absolute Nucleated RBC 0.000 X10*3/uL (0.0-0.012) 08/26/23 06:02 Nucleated RBC % (auto) 0.0 /100WBC (0.0-0.2) 08/26/23 06:02 Hold Purple Top SEE NOTE 08/24/23 06:24 Sodium 140 mmol/L (135-145) 08/24/23 06:24 Potassium 4.2 mmol/L (3.3-5.1) 08/24/23 06:24 Chloride 106 mmol/L (96-108) 08/24/23 06:24 Carbon Dioxide 25 mmol/L (22-29) 08/24/23 06:24 Anion Gap 13 (12-20) 08/24/23 06:24 BUN 15 mg/dL (9-16) 08/24/23 06:24 Creatinine 0.81 mg/dL (0.5-1.4) 08/24/23 06:24 Estim Creat Clear Calc 91.5 08/24/23 06:24 Estimated GFR > 60 08/24/23 06:24 POC Glucose 158 mg/dL (60-115) H 08/27/23 10:57 Random Glucose 97 mg/dL (60-115) 08/24/23 06:24 Calcium 8.6 mg/dL (8.4-10.2) 08/24/23 06:24 Total Bilirubin 0.8 mg/dL (0.0-1.0) 08/21/23 23:54 AST 17 U/L (5-37) 08/21/23 23:54 ALT 14 U/L (0-40) 08/21/23 23:54 Alkaline Phosphatase 63 U/L (39-117) 08/21/23 23:54 Troponin I High Sens 8.9 ng/L (<3.5-35.0) 08/21/23 23:54 Total Protein 6.3 g/dL (6.5-8.0) L 08/21/23 23:54 Albumin 3.8 g/dL (3.5-5.0) 08/21/23 23:54 Urine Color Dark Yellow 08/22/23 03:04 Urine Appearance Clear 08/22/23 03:04 Urine pH 5.5 (5.0-9.0) 08/22/23 03:04 Ur Specific [place] 1.025 (1.005-1.025) 08/22/23 03:04 Urine Protein 30 (1+) mg/dL (Neg-Trace) H 08/22/23 03:04 Urine Glucose (UA) Negative mg/dL (Negative) 08/22/23 03:04 Urine Ketones Negative mg/dL (Negative) 08/22/23 03:04 Urine Blood Negative (Negative) 08/22/23 03:04 Urine Nitrite Negative (Negative) 08/22/23 03:04 Ur Leukocyte Esterase Negative (Negative) 08/22/23 03:04 Urine RBC 0-2 /HPF (0-2) 08/22/23 03:04 Urine WBC 0-5 /HPF (0-5) 08/22/23 03:04 Ur Squamous Epith Cells 0-2 /HPF (0-2) 08/22/23 03:04 Urine Bacteria None Seen (None Seen) 08/22/23 03:04 Hyaline Casts 0-2 /LPF (0-2) 08/22/23 03:04 Stool Occult Blood NEGATIVE (NEGATIVE) 08/22/23 02:24 Impressions Chest X-Ray 08/22/23 00:22 IMPRESSION: No acute cardiopulmonary findings. Abdomen/Pelvis CT 08/22/23 03:42 IMPRESSION: 1. Large amount of stool throughout the colon. Distalmost rectum is collapsed which limits evaluation for wall thickening or mass. Given the amount of stool in the colon, the possibility of an obstructive process in the distal rectum cannot be excluded Perirectal stranding is noted, which could reflect stercoral colitis in the proper clinical setting. 2. Right ureterovesicular junction calculus measuring 4 mm without significant hydronephrosis. 3. Diffuse mural prominence of the urinary bladder, which could be due to underdistention versus cystitis. 4. Small pleural effusions. Suggestion of a small amount of loculated fluid anteriorly at the left lung base. 5. Redemonstrated peripherally calcified low-density structure in the region of the lesser sac, suspicious for a pseudocyst in the setting of chronic pancreatitis. Head CT 08/22/23 09:57 IMPRESSION: No acute findings. Postsurgical change noted. No evidence for recurrent tumor in the left posterior fossa. Pending studies at discharge: Pending at discharge 08/26/23 12:12 Surgical [PTH] Routine Discharge Plan Discharge Anticipated Discharge Date/Time: 08/26/23 13:37 Patient Disposition: Home Health Service Discharge Diagnosis: anorectal pain anal lesion suspicious for squamous cell carcinoma Referrals: Sagar ALVARADO [Outside] - 1 Week Kelsey Cabrera MD [Physician] - 1 Week Gold Rangel MD [Physician] - 2 Weeks Luba Colmenares MD [Physician] - 1 Week Physician,Patel Barbosa [Physician] - 1 Week Discharge Medications: New polyethylene glycol 3350 17 gram Powder In Packet 17 g PO DAILY PRN (Reason: constipation) Qty: 30 0RF oxycodone 5 mg Tablet 5 mg PO Q6H PRN (Reason: Pain, Severe (Pain Scale 7-10)) Qty: 12 0RF Rx Instructions: Partial Fill upon patient request. (DME) MiniMed 630G Insulin Pump Misc 1 ea subcut QIDACHS Qty: 1 0RF Rx Instructions: As Directed Continued cetirizine 10 mg Tablet 10 mg PO DAILY metoprolol succinate 50 mg Tablet Extended Release 24 Hr 25 mg PO DAILY lisinopril 20 mg Tablet 5 mg PO DAILY clopidogrel 75 mg Tablet 37.5 mg PO DAILY amlodipine 5 mg Tablet 5 mg PO DAILY aspirin 81 mg Tablet,Delayed Release (Dr/Ec) 81 mg PO DAILY docusate sodium 100 mg Capsule 100 mg PO BID rosuvastatin 20 mg Tablet 20 mg PO DAILY gabapentin 100 mg capsule 200 mg PO BEDTIME PRN (Reason: Muscle Spasm) escitalopram oxalate 5 mg tablet 5 mg PO DAILY multivitamin with folic acid [Daily-Camila (with folic acid)] 400 mcg tablet 1 tab PO DAILY (DME) subcutaneous insulin pump Misc MISCELLANEOUS insulin aspart U-100 [Novolog U-100 Insulin aspart] 100 unit/mL solution 90 unit subcut DAILY finasteride [Proscar] 5 mg tablet 5 mg PO DAILY 90 Days Qty: 90 3RF Discharge Orders: Discharge Order (Routine); Ordered 08/27/23 Ordered By: Jaehyun Jefferson Diet: Diabetic diet Activity on Discharge: As tolerated Stand Alone Forms: Patient Portal Discharge page Print Language: Kyrgyz Care Plan Goals: treatment of cancer Health Concerns: anorectal pain anal lesion suspicious for squamous cell carcinoma Plan of Treatment: take acetaminophen for mild/moderate pain, oxycodone for severe pain follow up with Luisa Colmenares and Juan Carlos for biopsy results and to discuss further treatment you have an appointment with Dr Colmenares from [facility] on 09/02/23 at 1:20 PM VNA services for home physical therapy Please follow up with your primary care doctor within 1 week. Return to the hospital if you experience recurrent or worsening symptoms. Assessment: See Discharge Summary. Patient Instructions: Oxycodone, Rapid Release (By mouth), Polyethylene Glycol 3350/Electrolytes/Ascorbic Acid (By mouth)
--- NOTE | 2023-08-27 13:59 | PM.EVENT ---
Event Note Date of Service: 08/27/23 Event Note: says he has anal pain as baseline biopsies done yesterday - path pending likely persistence of anal cancer after chemo RT will need metastatic workup pt to be discharged with pain meds instructed to ffup with Dr. Colmenares Time Spent With Patient Time: Total time managing care of this patient today ____ minutes.
== END 2023-08-27 14:19 | disposition home health service (06) | DRG 374 ==
LOC: HO.ED 08-22 09:46 → HO.EDOVER 08-22 09:48 → HO.IMC 08-22 19:16
PROVIDERS: Hospitalist; Physician Assistant Medical; Student in an Organized Health Care Education/Training Program; Surgery; Admitting Provider Family Medicine; Emergency Provider Emergency Medicine; PCP Internal Medicine; Visit Provider Family Medicine
PROC: 0DBQ7ZX Excision of Anus, Via Natural or Artificial Opening, Diagnostic (ICD-10-PCS; principal; 2023-08-26 11:30)
DX: C21.1 Malignant neoplasm of anal canal (principal); D61.810 Antineoplastic chemotherapy induced pancytopenia; I50.32 Chronic diastolic (congestive) heart failure; I25.10 Atherosclerotic heart disease of native coronary artery without angina pectoris; N20.0 Calculus of kidney; T45.1X5A Adverse effect of antineoplastic and immunosuppressive drugs, initial encounter; K59.00 Constipation, unspecified; E11.649 Type 2 diabetes mellitus with hypoglycemia without coma; N40.0 Benign prostatic hyperplasia without lower urinary tract symptoms; K62.89 Other specified diseases of anus and rectum; Z95.810 Presence of automatic (implantable) cardiac defibrillator; Z96.41 Presence of insulin pump (external) (internal); Z95.1 Presence of aortocoronary bypass graft; Z87.891 Personal history of nicotine dependence; Z79.4 Long term (current) use of insulin; Z79.02 Long term (current) use of antithrombotics/antiplatelets; Z79.82 Long term (current) use of aspirin; Z79.899 Other long term (current) drug therapy
CPT/HCPCS: 36415; 70460; 71046; 74177; 80048; 80053; 81001; 82272; 82947; 84484; 85025; 85027; 88305; 88341; 88342; 93005; 97116; 97162; 99285; J1100; J1650; J2250; J2704; J2795; Q9967; S9485

== ENCOUNTER → 2023-08-21 23:45 | Outpatient (BNV) | payer OTHER, SELFPAY | PROVIDERS: Admitting Provider Family Medicine; Emergency Provider Emergency Medicine; Visit Provider Internal Medicine Cardiovascular Disease | DX: I44.4 Left anterior fascicular block (principal) | CPT/HCPCS: 93010 ==

== ENCOUNTER → 2023-08-22 09:25 | Outpatient (BNV) | payer OTHER, SELFPAY | PROVIDERS: Admitting Provider Family Medicine; Emergency Provider Emergency Medicine; Visit Provider Family Medicine | DX: K62.89 Other specified diseases of anus and rectum (principal); Z85.048 Personal history of other malignant neoplasm of rectum, rectosigmoid junction, and anus | CPT/HCPCS: 99222; 99232; 99233; 99239; G0180 ==

== ENCOUNTER → 2023-08-23 11:59 | Outpatient (BNV) | payer OTHER, SELFPAY | PROVIDERS: Admitting Provider Family Medicine; Emergency Provider Emergency Medicine; Visit Provider Internal Medicine Medical Oncology | DX: C21.0 Malignant neoplasm of anus, unspecified (principal); K86.1 Other chronic pancreatitis; D61.818 Other pancytopenia | CPT/HCPCS: 99223 ==

== ENCOUNTER 2023-09-06 09:46 | Inpatient (IN) | payer MEDICARE, MEDICAID, SELFPAY ==
[2023-09-06] VITALS (12 sets, daily range): BP systolic 139–170; BP diastolic 66–84; PULSE 40–65; RESP 16–20; TEMP 36.4–36.6; O2SAT 96–100; BMI 24.1
--- NOTE | ~2023-09-06 | CT_ITS ---
EXAMINATION: CT ANGIOGRAM OF THE CHEST WITH AND WITHOUT CONTRAST (CT PULMONARY ANGIOGRAM FOR PE) CLINICAL INFORMATION: sob hx colon cancer COMPARISON: CT chest 11/08/2022 TECHNIQUE: Prior to contrast administration, noncontrast localization images were obtained. Subsequently, multidetector volumetric imaging was performed from the thoracic inlet to below the diaphragms following the administration of 65 mL Omnipaque 350 intravenous contrast. No contrast reaction reported Sagittal, coronal, and MIP oblique sagittal reformatted images were obtained on the CT workstation, uploaded to PACS, and reviewed. This CT examination was performed using dose optimization techniques as appropriate, variously including the following: *Automated exposure control *Adjustment of mA and/or kV according to patient size (this includes techniques or standardized protocols for targeted exams where dose is matched to indication/reason for exam; i.e. extremities or head) *Use of iterative reconstruction technique Total exam dose-length product 284 mGy-cm FINDINGS: QUALITY OF STUDY/CONTRAST BOLUS: Satisfactory. PULMONARY ARTERIES: No pulmonary emboli. THORACIC AORTA: No aneurysm. Moderate scattered atheromatous calcifications. LUNG: Right apical traction bronchiectasis and scarring, progressed from 11/08/2022. Diffuse centrilobular emphysema. Bibasilar atelectasis. Stable 0.6 cm left upper lobe pleural nodule (series #7 axial image 72). Left upper lobe 0.4 cm pulmonary nodule (series #7 axial image 196), slightly increased from 2022. Stable left upper lobe 0.3 cm pulmonary nodule (series #7 axial image 191). PLEURA: There is pleural thickening along the anterior lingula and the lateral left upper lobe, both of which measure fat attenuation, new from prior. Small bilateral pleural effusions. MEDIASTINUM: Normal heart size. No pericardial effusion. No hilar or mediastinal lymphadenopathy. No evidence of septal bowing or right heart strain. Sutures artifact from the left chest generator pack and contrast bolus in the right subclavian artery limits evaluation of the thyroid. CORONARY ARTERY CALCIFICATION: Severe. CHEST WALL/AXILLA: No axillary or internal mammary lymphadenopathy. Left subclavian AICD/pacemaker. OSSEOUS STRUCTURES: No acute or suspicious osseous abnormality. Intact sternotomy wires. UPPER ABDOMEN: Large peripherally calcified presumed chronic pancreatic pseudocyst partially visualized and not significantly changed. There is reflux of contrast into the hepatic veins to suggest elevated right heart pressures. CT/CT angio chest PE protocol IMPRESSION: 1. No pulmonary emboli. 2. Right apical traction bronchiectasis and scarring, progressed from 11/08/2022. 3. Multiple left upper lobe nodules redemonstrated, largest measuring up to 0.6 cm. According to the UPDATED 2017 Fleischner Society recommendations, the advised follow-up imaging for multiple solid nodules, the largest measuring 6 mm or greater, is: LOW RISK PATIENT: CT at 3-6 months, then consider CT at 18-24 months. HIGH RISK PATIENT: CT at 3-6 months, then at 18-24 months. VTE: negative.
--- NOTE | 2023-09-06 09:55 | ECG_ITS ---
Test Reason : sob Blood Pressure : / mmHG Vent. Rate : 058 BPM Atrial Rate : 058 BPM P-R Int : 198 ms QRS Dur : 096 ms QT Int : 458 ms P-R-T Axes : 036 -58 067 degrees QTc Int : 449 ms Sinus bradycardia with occasional Premature ventricular complexes and Premature atrial complexes Left axis deviation Septal infarct (cited on or before 21-AUG-2023) Abnormal ECG When compared with ECG of 21-AUG-2023 23:45, Premature ventricular complexes are now Present Premature atrial complexes are now Present Referred By: Yoni Louise Electronically Signed By:Aleksandr Holland
--- NOTE | 2023-09-06 10:04 | ED_ITS ---
HPI - General Adult General Chief complaint: Upper Respiratory Symptoms Stated complaint: SOB OVER PAST FEW WEEKS Source: patient Mode of arrival: EMS Limitations: no limitations History of Present Illness ED Provider: PIERCE Chavez HPI narrative: This is a 72 year old male with a past medical history of diabetes, anal squamous cell carcinoma, colorectal cancer, carcinoma of rectum, HTN, previous TIA, HFrEF, and PAD, presents to the emergency department from home via ambulance with cc of dyspnea on exertion and SOB x 3weeks and worsened this morning at times accompanied by palpitations. The patient reports fatigue x3 weeks as well. No chest pain. The patient says he has an inhaler at home which he took this morning and it seemed to mildly help the SOB. Patient was a previous smoker of 1/2 pack per day for 4 years, but states he quit 50 years ago. Patient has difficulty ambulating at baseline. Related Data Home Medications ?Medication ?Instructions ?Recorded ?Confirmed amlodipine 5 mg tablet 5 mg PO DAILY 10/22/22 08/22/23 aspirin 81 mg tablet,delayed 81 mg PO DAILY 10/22/22 08/22/23 release cetirizine 10 mg tablet 10 mg PO DAILY 10/22/22 08/22/23 clopidogrel 75 mg tablet 37.5 mg PO DAILY 10/22/22 08/22/23 docusate sodium 100 mg capsule 100 mg PO BID 10/22/22 08/22/23 lisinopril 20 mg tablet 5 mg PO DAILY 10/22/22 08/22/23 metoprolol succinate 50 mg 25 mg PO DAILY 10/22/22 08/22/23 tablet,extended release 24 hr rosuvastatin 20 mg tablet 20 mg PO DAILY 10/22/22 08/22/23 escitalopram oxalate 5 mg tablet 5 mg PO DAILY 08/22/23 08/22/23 gabapentin 100 mg capsule 200 mg PO BEDTIME PRN Muscle Spasm 08/22/23 08/22/23 multivitamin with folic acid 400 1 tab PO DAILY 08/22/23 08/22/23 mcg tablet (Daily-Camila (with folic acid)) insulin aspart U-100 100 unit/mL 90 unit subcut DAILY 08/23/23 08/23/23 subcutaneous solution (Novolog U-100 Insulin aspart) subcutaneous insulin pump 08/23/23 08/23/23 Previous Rx's ?Medication ?Instructions ?Recorded finasteride 5 mg tablet (Proscar) 5 mg PO DAILY 90 days #90 tabs 07/03/23 oxycodone 5 mg tablet 5 mg PO Q6H PRN Pain, Severe (Pain 08/26/23 Scale 7-10) #12 tabs polyethylene glycol 3350 17 gram 17 g PO DAILY PRN constipation #30 08/26/23 oral powder packet ea subcutaneous insulin pump (MiniMed #1 ea 08/26/23 630G Insulin Pump) Allergies Allergy/AdvReac Type Severity Reaction Status Date / Time Sulfa (Sulfonamide Allergy Unknown Verified 09/06/23 09:56 Antibiotics) Review of Systems 2 Review of Systems: Yes all other systems are reviewed and are negative Cardiovascular: Cardiovascular: Reports dyspnea Respiratory: Respiratory: Reports dyspnea PMFSH Past Medical History Attestation statement: The following information was validated with the patient. Source: old records reviewed and nursing notes reviewed Medical History 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 TIA (transient ischemic attack) Peripheral artery disease Carotid arterial disease HFrEF (heart failure with reduced ejection fraction) ICD (implantable cardioverter-defibrillator) in place Coronary artery disease Elevated cholesterol HTN (hypertension) Insulin pump in place Diabetes Surgical History History of intravascular stent placement History of left-sided carotid endarterectomy Hx of CABG Family History Family History Father Mother Social History Social History Household Members: None Housing: Assisted Living Facility Housing Other:: [facility] Do you presently have visiting nurse or other home services: Yes (housekeeping) Alcohol intake: former Comment: COUNTS CORRECT Patient Tobacco Use Status: Former Tobacco user Tobacco use type: Cigarette Years Smoked: 4 Smoked in Last 30 Days: No Second Hand Smoke Exposure: No Use of substances other than those prescribed or required for medical reasons: No Advance Directives: Yes Advance Directives Information Provided: Yes Advance Directives on File: No Do you have a plan to hurt others: No Plan service: Yes Current occupational status: retired Physical Exam ED Vital Signs: Vital Signs - 24 hr 09/06/23 09:52 09/06/23 10:18 09/06/23 10:58 Temperature 98 F Pulse Rate 59 40 L Respiratory Rate 19 19 Blood Pressure 139/66 Pulse Oximetry 98 98 99 Oxygen Delivery Method Room Air Nasal Cannula Room Air 09/06/23 13:36 09/06/23 14:12 09/06/23 14:13 Temperature 97.5 F Pulse Rate 64 Respiratory Rate 16 Blood Pressure 144/67 H 144/67 H 144/67 H Pulse Oximetry 98 Oxygen Delivery Method Room Air BMI result Body Mass Index 24.1 vss. Appearance: Alert.? Oriented X3.? No acute distress.? Head: Normocephalic, atraumatic, no step-offs or deformities Eyes: Pupils equal, round and reactive to light.? Neck: Normal inspection.? Neck supple.? CVS: Normal heart rate and rhythm.? Pulses normal.? Respiratory: No respiratory distress.? Slight wheezing on auscultation bilaterally. Speaking in full sentences. Abdomen: Soft and nontender.? Skin: Skin warm and dry.? Normal skin color.? Normal skin turgor.? Extremities: 1+ pitting edema on bilateral lower extremities. No calf ttp. 5/5 strength to bilateral upper and lower extremities Back: No midline tenderness, no C-spine tenderness, full range of motion, no CVA tenderness bilaterally Neuro: Oriented X 3.? No motor deficit.? No sensory deficit. CN 2-12 intact Course Reevaluation(s) Reevaluation #1: Asymptomatic bradycardia 29 --> placed on pads Time: 10:47 Reevaluation #2: CBC with baseline leukopenia and baseline normocytic anemia. Chemistry no acute findings requiring intervention. Initial troponin 40.1, EKG showing bigeminy is in couplets, nonischemic however. BNP elevated 1572, patient will be given Lasix at this time he also does have bilateral lower extremity edema on exam, pitting. Chest CTA with no VTE i.e., no pulmonary emboli, right apical traction bronchiectasis and scarring progressed when compared to 11/08/2022 multiple upper lobe nodules. Time: 14:02 Reevaluation #3: Second trop not meeting delta criteria no [facility] acs BNP elevated concerns for CHF. Spoke w/ cardiology that recommends diuretics and admit Plan admission. Time: 14:30 Medications Administered Discontinued Medications Generic Name Dose Route Start Last Admin Trade Name Poly PRN Reason Stop Dose Admin Furosemide 20 mg 09/06/23 14:00 09/06/23 14:12 Furosemide 20 Mg/2 Ml Vial IVPUSH 09/06/23 14:01 20 mg ONCE ONE Administration Protocol Furosemide 40 mg 09/06/23 14:03 09/06/23 14:13 Furosemide 40 Mg/4 Ml Vial IVPUSH 09/06/23 14:04 40 mg STAT STA Administration Protocol Iohexol 100 ml 09/06/23 11:59 09/06/23 11:59 Iohexol 350 Mg/Ml 100 Ml Infus..Btl IV 09/06/23 12:00 65 ml ONCE ONE Administration Medical Decision Making Medical Decision Making [facility] Narrative: 1010 72 year old male with history of malignancy and HFrEF presents with SOB [id number] that has worsened since this morning. PE: Respiratory: No respiratory distress.? Slight wheezing on auscultation bilaterally. Speaking in full sentences. Extremities: 1+ pitting edema on bilateral lower extremities. No calf ttp. 5/5 strength to bilateral upper and lower extremities Differential: HFrEF exacerbation vs viral infection vs pleural effusion. Unlikely ACD, aortic dissection, or pneumothorax. I do not suspect pneumonia. Will rule out PE because of history of malignancy. Plan: CTA due to history of malignancy. CBC, CMP, BNP, troponin Differential Diagnosis Differential Diagnoses: The differential diagnosis associated with the presentation includes HFrEF exacerbation vs viral infection vs pleural effusion. Unlikely ACD, aortic dissection, or pneumothorax. I do not suspect pneumonia. Will rule out PE because of history of malignancy. Admission/Observation Consideration of admission/observation: Escalation of care including admission/observation considered Likely Consult Healthcare Provider Management of the patient was discussed with: Hospitalist and Program Management Professional (cardiology ) Lab Data [facility] Lab Attestation statement: I reviewed the patient's lab results. 09/06/23 10:15 09/06/23 10:15 Labs: Lab Results 09/06/23 09/06/23 Range/Units 10:15 13:26 WBC 3.9 L (4.8-10.8) X10*3/uL RBC 4.11 L (4.60-5.80) X10*6/uL Hgb 11.7 L (14.0-18.0) g/dl Hct 35.8 L (42.0-52.0) % MCV 87.1 (80.0-98.0) fL MCH 28.5 (27.0-33.0) pg MCHC 32.7 (31.0-36.0) g/dl RDW 16.0 (11.0-16.0) % Plt Count 105 L (160-400) X10*3/uL MPV 9.9 (9.4-12.4) fL Immature Gran % (Auto) 0.5 H (0.0-0.4) % Neut % (Auto) 76.5 H (45-73) % Lymph % (Auto) 7.4 L (20-40) % [place] % (Auto) 9.7 (2-11) % Eos % (Auto) 4.9 H (0-4) % Baso % (Auto) 1.0 (0-2) % Lymph # (Auto) 0.3 L (1.2-4.9) X10*3/uL [place] # (Auto) 0.4 (0.1-1.2) X10*3/uL Eos # (Auto) 0.2 (0.0-0.4) X10*3/uL Baso # (Auto) 0.0 (0.0-0.2) X10*3/uL Abs Immat Gran (auto) 0.02 (0.00-0.03) X10*3/uL Absolute Neuts (auto) 3.0 (2.0-8.3) x10*3/uL Absolute Nucleated RBC 0.000 (0.0-0.012) X10*3/uL Nucleated RBC % (auto) 0.0 (0.0-0.2) /100WBC Hold Purple Top SEE NOTE Sodium 137 (135-145) mmol/L Potassium 4.3 (3.3-5.1) mmol/L Chloride 105 (96-108) mmol/L Carbon Dioxide 25 (22-29) mmol/L Anion Gap 11 L (12-20) BUN 15 (9-16) mg/dL Creatinine 0.86 (0.5-1.4) mg/dL Estim Creat Clear Calc 88.9 Estimated GFR > 60 Random Glucose 291 H (60-115) mg/dL Calcium 8.8 (8.4-10.2) mg/dL Magnesium 1.7 (1.6-2.6) mg/dL Total Bilirubin 0.9 (0.0-1.0) mg/dL AST 27 (5-37) U/L ALT 30 (0-40) U/L Alkaline Phosphatase 77 (39-117) U/L Troponin I High Sens 40.1 H D 33.0 (<3.5-35.0) ng/L B-Natriuretic Peptide 1572 H (<100) pg/mL Total Protein 6.2 L (6.5-8.0) g/dL Albumin 3.8 (3.5-5.0) g/dL Urine Color Yellow Urine Appearance Clear Urine pH 5.5 (5.0-9.0) Ur Specific [place] >= 1.030 H (1.005-1.025) Urine Protein 30 (1+) H (Neg-Trace) mg/dL Urine Glucose (UA) Negative (Negative) mg/dL Urine Ketones Negative (Negative) mg/dL Urine Blood Negative (Negative) Urine Nitrite Negative (Negative) Ur Leukocyte Esterase Negative (Negative) Urine RBC 0-2 (0-2) /HPF Urine WBC 0-5 (0-5) /HPF Ur Squamous Epith Cells 0-2 (0-2) /HPF Calcium Oxalate Crystal Present Urine Bacteria None Seen (None Seen) Hyaline Casts 0-2 (0-2) /LPF COVID-19 (TOM) Negative (Negative) COVID-19 Clin Com See Note Independent Interpretation I performed an independent interpretation of an: EKG (Vent. Rate : 068 BPM Atrial Rate : 000 BPM P-R Int : 000 ms QRS Dur : 096 ms QT Int : 450 ms P-R-T Axes : 000 -61 089 degrees QTc Int : 478 ms Accelerated Junctional rhythm with frequent , and consecutive Premature ventricular complexes Left axis deviation Pulmonary di) and CT Scan (CT/CT angio chest PE protocol IMPRESSION: 1. No pulmonary emboli. 2. Right apical traction bronchiectasis and scarring, progressed from 11/08/2022. 3. Multiple left upper lobe nodules redemonstrated, largest measuring up to 0.6 cm. According to the UPDATED 2017 Fleischner Society recommendations) Radiology Impression Discussion of test interpretation with radiology: I have reviewed the radiologist's reading. External Record Review External record reviewed: Inpatient record, Office record, Outpatient record, Prior outpatient labs, Prior outpatient radiology, Primary care record and Outside ED record Chronic Conditions Patient?s care impacted by: Diabetes, Hypertension, Cancer and Other (PAD, ID, elevated cholesterol ) Core Measures AMI core measures followed: Yes Measure exclusions: not indicated Critical Care Time Critical Care Time Critical Care Time: Yes Total Critical Care Time: 60 Attestation: I attest to this time spent taking care of the patient, obtaining history, physical, reviewing labs, imaging, speaking to my attending, specialist or hospitalist. Discharge Plan Discharge Clinical Impression: MANJARREZ (dyspnea on exertion), Bigeminy Patient Disposition: Admitted As Inpatient Prescriptions: No Action cetirizine 10 mg Tablet 10 mg PO DAILY metoprolol succinate 50 mg Tablet Extended Release 24 Hr 25 mg PO DAILY lisinopril 20 mg Tablet 5 mg PO DAILY clopidogrel 75 mg Tablet 37.5 mg PO DAILY amlodipine 5 mg Tablet 5 mg PO DAILY aspirin 81 mg Tablet,Delayed Release (Dr/Ec) 81 mg PO DAILY docusate sodium 100 mg Capsule 100 mg PO BID rosuvastatin 20 mg Tablet 20 mg PO DAILY gabapentin 100 mg capsule 200 mg PO BEDTIME PRN (Reason: Muscle Spasm) escitalopram oxalate 5 mg tablet 5 mg PO DAILY multivitamin with folic acid [Daily-Camila (with folic acid)] 400 mcg tablet 1 tab PO DAILY (DME) subcutaneous insulin pump Misc MISCELLANEOUS insulin aspart U-100 [Novolog U-100 Insulin aspart] 100 unit/mL solution 90 unit subcut DAILY polyethylene glycol 3350 17 gram Powder In Packet 17 g PO DAILY PRN (Reason: constipation) Qty: 30 0RF oxycodone 5 mg Tablet 5 mg PO Q6H PRN (Reason: Pain, Severe (Pain Scale 7-10)) Qty: 12 0RF Rx Instructions: Partial Fill upon patient request. (DME) MiniMed 630G Insulin Pump Misc 1 ea subcut QIDACHS Qty: 1 0RF Rx Instructions: As Directed finasteride [Proscar] 5 mg tablet 5 mg PO DAILY 90 Days Qty: 90 3RF Print Language: Eritrean
[2023-09-06 10:19] LABS: MANUAL DIFF FLAG NO
[2023-09-06 10:27] LABS: Eosinophils Absolute Auto 0.2 X10*3/uL (0.0-0.4); Eosinophils Percent Auto 4.9 % (0-4); Hematocrit 35.8 % (42.0-52.0); Hemoglobin 11.7 g/dl (14.0-18.0); Imm Gran Abs Auto 0.02 X10*3/uL (0.00-0.03); Imm Gran Pct Auto 0.5 % (0.0-0.4); Lymphocytes Absolute Auto 0.3 X10*3/uL (1.2-4.9); Lymphocytes Percent Auto 7.4 % (20-40); Mean Corpuscular HGB Conc 32.7 g/dl (31.0-36.0); Mean Corpuscular Hemoglobin 28.5 pg (27.0-33.0); Mean Corpuscular Volume 87.1 fL (80.0-98.0); Mean Platelet Volume 9.9 fL (9.4-12.4); Monocytes Absolute Auto 0.4 X10*3/uL (0.1-1.2); Monocytes Percent Auto 9.7 % (2-11); Neutrophils Percent Auto 76.5 % (45-73); Platelet Count 105 X10*3/uL (160-400); Red Blood Count 4.11 X10*6/uL (4.60-5.80); White Blood Count 3.9 X10*3/uL (4.8-10.8)
[2023-09-06 10:48] LABS: COVID-19 Test Negative (Negative); IDNOW Serial# 08D9AD1C
--- NOTE | 2023-09-06 10:48 | ECG_ITS ---
Test Reason : MATY Blood Pressure : / mmHG Vent. Rate : 068 BPM Atrial Rate : 000 BPM P-R Int : 000 ms QRS Dur : 096 ms QT Int : 450 ms P-R-T Axes : 000 -61 089 degrees QTc Int : 478 ms Atrial paced rhtyhm with frequent PVCs Left axis deviation Pulmonary disease pattern Septal infarct (cited on or before 21-AUG-2023) Abnormal ECG When compared with ECG of 06-SEP-2023 10:33, PVCs present Referred By: Yoni Louise Electronically Signed By:Aleksandr Holland
[2023-09-06 10:50] LABS: Alanine Aminotransferase 30 U/L (0-40); Albumin Level 3.8 g/dL (3.5-5.0); Alkaline Phosphatase 77 U/L (39-117); Anion Gap 11 (12-20); Aspartate Amino Transferase 27 U/L (5-37); Bilirubin Total 0.9 mg/dL (0.0-1.0); Blood Urea Nitrogen 15 mg/dL (9-16); Calcium 8.8 mg/dL (8.4-10.2); Carbon Dioxide 25 mmol/L (22-29); Chloride 105 mmol/L (96-108); Creatinine Clr Calc Pharmacy 88.9; Estimated Glomerular Filt Rate > 60; Glucose Random 291 mg/dL (60-115); Magnesium 1.7 mg/dL (1.6-2.6); Potassium 4.3 mmol/L (3.3-5.1); Sodium 137 mmol/L (135-145); Total Protein 6.2 g/dL (6.5-8.0)
[2023-09-06 10:57] LABS: Troponin-I High Sensitivity 40.1 ng/L (<3.5-35.0)
[2023-09-06] MEDS: iohexoL 350 MG/ML 100 ML INFUS..BTL IV (11:59)
--- NOTE | 2023-09-06 12:07 | ECG_ITS ---
Test Reason : REPEAT Blood Pressure : / mmHG Vent. Rate : 063 BPM Atrial Rate : 063 BPM P-R Int : 202 ms QRS Dur : 098 ms QT Int : 452 ms P-R-T Axes : 044 -59 091 degrees QTc Int : 462 ms Sinus rhythm with frequent Premature ventricular complexes Atrial pacing intermittently Left axis deviation Septal infarct (cited on or before 21-AUG-2023) Abnormal ECG When compared with ECG of 06-SEP-2023 10:48, No significant changes seen Referred By: Dmitry Paulino Electronically Signed By:FRANCISCO SY
--- NOTE | 2023-09-06 12:21 | PC.NURSE ---
Assumed care of this patient at 1100, patient to go to for CTA monitored, patient then changed into hospital attire cleaned up/repositioned in bed with durable medical equipment repairer Joanne, patient continues to karen down as low as 29 on monitor, provider aware.
[2023-09-06 13:47] LABS: Appearance Urine Clear; Color Urine Yellow; Glucose Urine UA Negative (Negative); Leukocyte Esterase Urine Negative (Negative); Nitrite Urine Negative (Negative); PH 5.5 (5.0-9.0); Specific Gravity - Urine >= 1.030 (1.005-1.025); UMIC TRIGGER UACC YES; Urine Blood Negative (Negative); Urine Ketones Negative (Negative); Urine Protein 30 (1+) mg/dL (Neg-Trace)
[2023-09-06 13:56] LABS: B Type Natriuretic Peptide 1572 pg/mL (<100)
[2023-09-06 14:02] LABS: Bacteria Urine None Seen (None Seen); Calcium Oxalate Crystals Urine Present; Hyaline Casts Urine 0-2 /LPF (0-2); RBC Urine 0-2 /HPF (0-2); Squamous Epithelial Cell Urine 0-2 /HPF (0-2); WBC Urine 0-5 /HPF (0-5)
[2023-09-06] MEDS: Furosemide 20 MG/2 ML VIAL IVPUSH (14:12)
[2023-09-06] MEDS: Furosemide 40 MG/4 ML VIAL IVPUSH (14:13)
--- NOTE | 2023-09-06 15:15 | PM.CNCAR ---
History of Present Illness History of Present Illness Date of Service: 09/06/23 Requesting physician: Yoni Louise Chief complaint: CHF, generalized weakness Narrative: Pleasant 72-year-old gentleman presenting for shortness of breath. He has colon cancer and underwent chemo and radiation in February 2023. He is saying since then has been progressively weak, short of breath. He also has background history of coronary artery bypass surgery at [facility] and follows with Dr. Ford. Today breathing worsened and decided to come to the emergency department. He has bilateral mild edema. Due to his cancer he also underwent CT pulmonary angiogram which did not show PE but did feel some traction bronchiectasis and nodules. He was given diuretics in the ER. At the time I interviewed him he did not appear to be in florid heart failure. Did have frequent PVCs and at time was in a bigeminy pattern. He is denying any significant palpitations. [facility] Past Medical History Medical History 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 TIA (transient ischemic attack) Peripheral artery disease Carotid arterial disease HFrEF (heart failure with reduced ejection fraction) ICD (implantable cardioverter-defibrillator) in place Coronary artery disease Elevated cholesterol HTN (hypertension) Insulin pump in place Diabetes Family History Family History Father Mother Surgical History Surgical History History of intravascular stent placement History of left-sided carotid endarterectomy Hx of CABG Social History Social History Household Members: None Housing: Assisted Living Facility Housing Other:: [place] housing Do you presently have visiting nurse or other home services: Yes (housekeeping) Alcohol intake: former Comment: COUNTS CORRECT Patient Tobacco Use Status: Former Tobacco user Tobacco use type: Cigarette Years Smoked: 4 Smoked in Last 30 Days: No Second Hand Smoke Exposure: No Use of substances other than those prescribed or required for medical reasons: No Advance Directives: Yes Advance Directives Information Provided: Yes Advance Directives on File: No Do you have a plan to hurt others: No Plan service: Yes Current occupational status: retired Meds Allergies Allergy/AdvReac Type Severity Reaction Status Date / Time Sulfa (Sulfonamide Allergy Unknown Verified 09/06/23 09:56 Antibiotics) Home Medications ?Medication ?Instructions ?Recorded ?Confirmed ?Last Taken ?Type aspirin 81 mg tablet,delayed 81 mg PO DAILY 10/22/22 09/06/23 09/05/23 History release cetirizine 10 mg tablet 10 mg PO DAILY 10/22/22 09/06/23 09/05/23 History clopidogrel 75 mg tablet 37.5 mg PO DAILY 10/22/22 09/06/23 09/05/23 History docusate sodium 100 mg capsule 100 mg PO BID 10/22/22 09/06/23 09/05/23 History lisinopril 20 mg tablet 5 mg PO DAILY 10/22/22 09/06/23 09/05/23 History metoprolol succinate 50 mg 25 mg PO DAILY 10/22/22 09/06/23 09/05/23 History tablet,extended release 24 hr rosuvastatin 20 mg tablet 20 mg PO DAILY 10/22/22 09/06/23 09/05/23 History escitalopram oxalate 5 mg tablet 5 mg PO DAILY 08/22/23 09/06/23 09/05/23 History gabapentin 100 mg capsule 200 mg PO BEDTIME PRN Muscle Spasm 08/22/23 09/06/23 Unknown History multivitamin with folic acid 400 1 tab PO DAILY 08/22/23 09/06/23 09/05/23 History mcg tablet (Daily-Camila (with folic acid)) subcutaneous insulin pump 08/23/23 08/23/23 Unknown History brimonidine 0.2 % eye drops 2 drp ophthalmic (eye) BID 09/06/23 09/06/23 09/05/23 History insulin lispro 100 unit/mL 90 unit subcut DAILY 09/06/23 09/06/23 Unknown History subcutaneous solution (Humalog U-100 Insulin) Physical Exam Vital Signs: Vital Signs: Last Vital Signs Temp 97.8 F 09/06/23 14:34 Pulse 64 09/06/23 14:34 Resp 18 09/06/23 14:34 BP 153/69 H 09/06/23 14:34 Pulse Ox 100 09/06/23 14:34 O2 Del Method Room Air 09/06/23 14:34 BMI result Body Mass Index 24.1 GENERAL APPEARANCE: Frail, ill appearing. NECK: no carotid bruit, no jugular venous distention. SKIN: no suspicious lesions, warm and dry. HEART: no murmurs, regular rate and rhythm. LUNGS: clear to auscultation bilaterally. ABDOMEN: soft, nontender. EXTREMITIES: Mild edema. PERIPHERAL PULSES: equal. NEUROLOGIC: No gross deficits, AAO X 3 Objective Labs and Meds 09/06/23 10:15 09/06/23 10:15 Lab results: Laboratory Results - last 24 hr 09/06/23 09/06/23 10:15 13:26 WBC 3.9 L RBC 4.11 L Hgb 11.7 L Hct 35.8 L MCV 87.1 MCH 28.5 MCHC 32.7 RDW 16.0 Plt Count 105 L MPV 9.9 Immature Gran % (Auto) 0.5 H Neut % (Auto) 76.5 H Lymph % (Auto) 7.4 L [place] % (Auto) 9.7 Eos % (Auto) 4.9 H Baso % (Auto) 1.0 Lymph # (Auto) 0.3 L [place] # (Auto) 0.4 Eos # (Auto) 0.2 Baso # (Auto) 0.0 Abs Immat Gran (auto) 0.02 Absolute Neuts (auto) 3.0 Absolute Nucleated RBC 0.000 Nucleated RBC % (auto) 0.0 Hold Purple Top SEE NOTE Sodium 137 Potassium 4.3 Chloride 105 Carbon Dioxide 25 Anion Gap 11 L BUN 15 Creatinine 0.86 Estim Creat Clear Calc 88.9 Estimated GFR > 60 Random Glucose 291 H Calcium 8.8 Magnesium 1.7 Total Bilirubin 0.9 AST 27 ALT 30 Alkaline Phosphatase 77 Troponin I High Sens 40.1 H D 33.0 B-Natriuretic Peptide 1572 H Total Protein 6.2 L Albumin 3.8 Urine Color Yellow Urine Appearance Clear Urine pH 5.5 Ur Specific [place] >= 1.030 H Urine Protein 30 (1+) H Urine Glucose (UA) Negative Urine Ketones Negative Urine Blood Negative Urine Nitrite Negative Ur Leukocyte Esterase Negative Urine RBC 0-2 Urine WBC 0-5 Ur Squamous Epith Cells 0-2 Calcium Oxalate Crystal Present Urine Bacteria None Seen Hyaline Casts 0-2 COVID-19 (TOM) Negative COVID-19 Clin Com See Note Imaging Radiologist's impression: Impressions Chest CTA 09/06/23 11:57 IMPRESSION: 1. No pulmonary emboli. 2. Right apical traction bronchiectasis and scarring, progressed from 11/08/2022. 3. Multiple left upper lobe nodules redemonstrated, largest measuring up to 0.6 cm. According to the UPDATED 2017 Fleischner Society recommendations, the advised follow-up imaging for multiple solid nodules, the largest measuring 6 mm or greater, is: LOW RISK PATIENT: CT at 3-6 months, then consider CT at 18-24 months. HIGH RISK PATIENT: CT at 3-6 months, then at 18-24 months. VTE: negative. Assessment and Plan (1) Bigeminy: Status: Acute (2) MANJARREZ (dyspnea on exertion): Status: Acute Plan [age] year gentleman previous coronary artery bypass surgery, reported history of cardiomyopathy and previous ICD presenting for weakness. He has colon cancer diagnosed and underwent chemoradiation. He is saying he has some radiation coming. He does have mild edema. His heart in a significantly volume overloaded currently. He was given IV diuretics. He has some premature ventricular complexes telemetry off and on. At times he is also in bigeminy. Dyspnea in his case is difficult to explain. He does not have any significant heart failure right now. He can be gently diuresed to sleep his edema improved which could be a byproduct of gabapentin use. Ambulate in hallways to see how he responds to exercise specially in terms of premature ventricular complexes. No pulmonary embolism on the CT scan. Dyspnea can be due to deconditioning given colon cancer and he is status post chemoradiation. Thank you for allowing me to participate in the care of your patient. Please feel free to contact me if you have any questions. Procedures Date of Service Date of Service: 09/06/23
--- NOTE | 2023-09-06 15:40 | PM.IMHP ---
History of Present Illness Date of Service: 09/06/23 Attending physician on admission: Mahendra Carvalho Chief Complaint: SOB, Pt is a 72-year-old female with a PMH significant for?rectal cancer s/p chemo and radiation (last treated 02/2023), CAD, carotid occlusive disease, chronic HFrEF s/p ICD, HTN, BPH, and insulin-dependent diabetes managed with insulin pump who presents to the ED from home for evaluation of MANJARREZ and SOB x3 weeks. Patient recently was hospitalized from 08/21-08/26 dizziness, lightheadedness, and rectal pain. Underwent colonoscopy which found indurated and deep ulcerating lesion left lateral anal canal. Biopsy pathology showed poorly differentiated invasive squamous cell carcinoma involving ulcerated squamous mucosa. Patient presents today due to continued lightheadedness, dizziness, fatigue, and increased SOB and MANJARREZ x3 weeks. In short, patient reports he feels ?fatigued? and ?wiped out?. Patient reports he is having difficult time ambulating and no longer can walk around his complex. Continues to have rectal pain, especially with defecation. Has noted some increased swelling in his legs for the past 2-3 weeks. Reports history of CHF, but has not had any issues since radiation last year. Reports some minor cough the past few days. Chronic chest pressure at baseline. No fever, chills, N/V, abd pain. In the ED pt was bradycardic as low as 40 and hypertensive up to 153/69. Labs were significant for leukopenia 3.9, H&H 11.7/35.8, BNP 1572, initial troponin 40.1 with repeat flat at 33.0. No electrolyte abnormalities. Renal function WNL. Hepatic function WNL. UA negative for UTI. CTA of chest no pulmonary emboli, but showed progression right apical traction bronchiectasis and scarring, and redemonstration of multiple left upper lobe nodules with largest 0.6 cm. EKG demonstrated sinus rhythm with frequent PVCs. Pt was treated with Lasix. Pt will be admitted to the hospital for treatment and further evaluation generalized weakness and deconditioning in setting of CHF exacerbation and resurgence of rectal cancer. 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 TIA (transient ischemic attack) Peripheral artery disease Carotid arterial disease HFrEF (heart failure with reduced ejection fraction) ICD (implantable cardioverter-defibrillator) in place Coronary artery disease Elevated cholesterol HTN (hypertension) Insulin pump in place Diabetes Family History Father Mother Surgical History History of intravascular stent placement History of left-sided carotid endarterectomy Hx of CABG Social History Household Members: None Housing: [facility]isted Living Facility Housing Other:: [facility] Do you presently have visiting nurse or other home services: Yes (housekeeping) Alcohol intake: former Comment: COUNTS CORRECT Patient Tobacco Use Status: Former Tobacco user Tobacco use type: Cigarette Years Smoked: 4 Smoked in Last 30 Days: No Second Hand Smoke Exposure: No Use of substances other than those prescribed or required for medical reasons: No Advance Directives: Yes Advance Directives Information Provided: Yes Advance Directives on File: No Do you have a plan to hurt others: No Plan service: Yes Current occupational status: retired Meds Allergies Allergy/AdvReac Type Severity Reaction Status Date / Time Sulfa (Sulfonamide Allergy Unknown Verified 09/06/23 09:56 Antibiotics) Home Medications ?Medication ?Instructions ?Recorded ?Confirmed ?Last Taken ?Type aspirin 81 mg tablet,delayed 81 mg PO DAILY 10/22/22 09/06/23 09/05/23 History release cetirizine 10 mg tablet 10 mg PO DAILY 10/22/22 09/06/23 09/05/23 History clopidogrel 75 mg tablet 37.5 mg PO DAILY 10/22/22 09/06/23 09/05/23 History docusate sodium 100 mg capsule 100 mg PO BID 10/22/22 09/06/23 09/05/23 History lisinopril 20 mg tablet 5 mg PO DAILY 10/22/22 09/06/23 09/05/23 History metoprolol succinate 50 mg 25 mg PO DAILY 10/22/22 09/06/23 09/05/23 History tablet,extended release 24 hr rosuvastatin 20 mg tablet 20 mg PO DAILY 10/22/22 09/06/23 09/05/23 History escitalopram oxalate 5 mg tablet 5 mg PO DAILY 08/22/23 09/06/23 09/05/23 History gabapentin 100 mg capsule 200 mg PO BEDTIME PRN Muscle Spasm 08/22/23 09/06/23 Unknown History multivitamin with folic acid 400 1 tab PO DAILY 08/22/23 09/06/23 09/05/23 History mcg tablet (Daily-Camila (with folic acid)) subcutaneous insulin pump 08/23/23 08/23/23 Unknown History brimonidine 0.2 % eye drops 2 drp ophthalmic (eye) BID 09/06/23 09/06/23 09/05/23 History insulin lispro 100 unit/mL 90 unit subcut DAILY 09/06/23 09/06/23 Unknown History subcutaneous solution (Humalog U-100 Insulin) Physical Exam Vital Signs and Narrative: Vital Signs: Last Vital Signs Temp 97.8 F 09/06/23 14:34 Pulse 64 09/06/23 14:34 Resp 18 09/06/23 14:34 BP 153/69 H 09/06/23 14:34 Pulse Ox 100 09/06/23 14:34 O2 Del Method Room Air 09/06/23 14:34 BMI result Body Mass Index 24.1 Constitutional: Alert, in no acute distress. Mental Status: Oriented to person, place and time. Eyes: Pupils are equal, round, and reactive to light. Ear, Nose, and Throat: Oropharynx clear, mucous membranes moist. Ears and nose without deformities. Trachea midline. Respiratory: Clear to auscultation bilaterally. No wheezing, rales, or rhonchi. Cardiovascular: S1, S2 regular. No murmurs, rubs, or gallops. Gastrointestinal: Abdomen soft, non-tender, non-distended. Normal bowel sounds. Neurologic: Cranial nerves II-XII are grossly intact bilaterally. No focal neurological deficits. Moves all extremities spontaneously. Skin: Warm, dry. Extremities: Trace to 1+ bilateral pitting edema. especially around ankles. Psychiatric: Normal mood and affect. Results Labs 09/06/23 10:15 09/06/23 10:15 Labs: Laboratory Results - last 24 hr 09/06/23 09/06/23 10:15 13:26 MCV 87.1 MCH 28.5 MCHC 32.7 RDW 16.0 Plt Count 105 L MPV 9.9 Immature Gran % (Auto) 0.5 H Neut % (Auto) 76.5 H Lymph % (Auto) 7.4 L [place] % (Auto) 9.7 Eos % (Auto) 4.9 H Baso % (Auto) 1.0 Lymph # (Auto) 0.3 L [place] # (Auto) 0.4 Eos # (Auto) 0.2 Baso # (Auto) 0.0 Abs Immat Gran (auto) 0.02 Absolute Neuts (auto) 3.0 Absolute Nucleated RBC 0.000 Nucleated RBC % (auto) 0.0 Hold Purple Top SEE NOTE Anion Gap 11 L Estim Creat Clear Calc 88.9 Estimated GFR > 60 Random Glucose 291 H Calcium 8.8 Magnesium 1.7 Total Bilirubin 0.9 AST 27 ALT 30 Alkaline Phosphatase 77 Troponin I High Sens 40.1 H D 33.0 B-Natriuretic Peptide 1572 H Total Protein 6.2 L Albumin 3.8 Urine Color Yellow Urine Appearance Clear Urine pH 5.5 Ur Specific [place] >= 1.030 H Urine Protein 30 (1+) H Urine Glucose (UA) Negative Urine Ketones Negative Urine Blood Negative Urine Nitrite Negative Ur Leukocyte Esterase Negative Urine RBC 0-2 Urine WBC 0-5 Ur Squamous Epith Cells 0-2 Calcium Oxalate Crystal Present Urine Bacteria None Seen Hyaline Casts 0-2 COVID-19 (TOM) Negative COVID-19 Clin Com See Note Imaging Radiologist's Impressions: Impressions Chest CTA 09/06/23 11:57 IMPRESSION: 1. No pulmonary emboli. 2. Right apical traction bronchiectasis and scarring, progressed from 11/08/2022. 3. Multiple left upper lobe nodules redemonstrated, largest measuring up to 0.6 cm. According to the UPDATED 2017 Fleischner Society recommendations, the advised follow-up imaging for multiple solid nodules, the largest measuring 6 mm or greater, is: LOW RISK PATIENT: CT at 3-6 months, then consider CT at 18-24 months. HIGH RISK PATIENT: CT at 3-6 months, then at 18-24 months. VTE: negative. Assessment and Plan (1) Anal squamous cell carcinoma: Status: Acute (2) CHF exacerbation: Status: Acute Plan Pt is a 72-year-old female with a PMH significant for?rectal cancer s/p chemo and radiation (last treated 02/2023), CAD, carotid occlusive disease, chronic HFrEF s/p ICD, HTN, BPH, and insulin-dependent diabetes managed with insulin pump who presents to the ED from home for evaluation of MANJARREZ and SOB x3 weeks. Pt will be admitted to the hospital for treatment and further evaluation generalized weakness and deconditioning in setting of CHF exacerbation and resurgence of rectal cancer. HFrEF exacerbation Pt with increased SOB, LLE, elevated BNP Not on home diuretics Pt given Lasix IV in ED Will treat with Lasix 20mg IV for now Monitor I/O, daily weights Follow lytes, mag Low-salt diet Cardiology consult Monitor on telemetry Rectal cancer Completed radiation in 03/2023 Has been experiencing rectal pain especially with defecation Biopsy upon last admission on 08/29/2023 showed poorly differentiated invasive squamous cell carcinoma involving ulcerated squamous mucosa Oncology consult Generalized weakness and deconditioning Likely multifactorial: in the setting of HFrEF exacerbation, anal cancer resurgence PT consult Elevated troponins Initial troponin 40.1 with repeat 33.0 Pt asymptomatic, EKG without significant ischemic changes Likely type 2 in the setting of increased demand Monitor on telemetry Insulin dependent type 2 diabetes Pt's home insulin dosage unclear Not on Lantus Will start on SSI and titrate from there HTN Continue lisinopril, metoprolol CAD Continue statin, Plavix Mood disorder Continue home mood stabilizers Full Code Attending:?Dr. Billy DVT Prophylaxis: Lovenox Pt will require a hospitalization of at least two nights for treatment of?generalized weakness and deconditioning in the setting CHF exacerbation and re-emergence of anal carcinoma. Patient require hospitalization for the administration of IV diuretics, close monitoring of labs and cardiac functioning, and evaluation Cardiology and physical therapy. Quality Stroke Does the patient have a stroke diagnosis?: No VTE Prior VTE?: No VTE Risk Level:: Medical - moderate - high VTE Device Contraindication: Treatment Not Indicated VTE Drug Contraindication: N/A - Med Ordered
--- NOTE | 2023-09-06 17:39 | PHA.MEDREC ---
Pharmacy Consult ? Medication Reconciliation Pharmacy has completed the medication reconciliation. Med rec tech Nyasia and manager internal Kieran spoke to patient and confirmed medication list. In regards to his insulin, he said he uses Humalog, most recent pharmacy claim is also for Humalog (90 units qd) but he showed us the insulin vial which is NOVOLOG (8-12 units tid with meals) with the fill date of end of march 2023. Transfer Summary Report from [facility] also said Novolog but has the same dose as Humalog (90 units qd). He also said that he uses brimonidine 0.2% eye drops (2 drops ou bid) which is not in pharmacy claims nor in the A report.
[2023-09-06 18:18] LABS: Glucose, Whole Blood 205 mg/dL (60-115)
[2023-09-06] MEDS: Escitalopram Oxalate 5 MG TABLET PO (18:44)
[2023-09-06] MEDS: lisinopriL 5 MG TABLET PO (18:44)
[2023-09-06] MEDS: Aspirin Enteric Coated 81 MG TABLET.DR PO (18:44)
[2023-09-06] MEDS: Enoxaparin Sodium 40 MG/0.4 ML SYRINGE SUBCUT (18:44)
[2023-09-06] MEDS: Metoprolol Succinate ER 25 MG TAB.ER.24H PO (18:44)
[2023-09-06 20:26] LABS: Glucose, Whole Blood 326 mg/dL (60-115)
--- NOTE | 2023-09-06 20:58 | PC.NURSE ---
PT RESTING COMFORTABLY IN STRETCHER. STEADY GAIT TO BEDSIDE TO USE URINAL. 1050ML URINE OUTPUT. VITALS DOCUMENTED. PT DENIES CP/SOB/N/V/D. PT REPORTS CHRONIC GENERALIZED PAIN 10/22. POC 325, AWAITING INSULIN DELIVERY TO ED, PHARMACY NOTIFIED NOT AVAILABLE IN [facility]. PT SINUS MATY ON MONITOR WITH FREQUENT PVCS; PT DENIES PALPITATIONS. AXOX4 SPEAKING FULL CLEAR SENTENCES. PT EDUCATED TO NOT USE SELF INSULIN PUMP, PT AGREES AND VERBALIZES UNDERSTANDING. CALL OLVERA WITHIN REACH.
[2023-09-06] MEDS: Insulin Lispro 100 UNIT/ML 3 ML VIAL SUBCUT (21:18)
[2023-09-06] MEDS: Docusate Sodium 100 MG CAPSULE PO (21:19)
[2023-09-06] MEDS: oxyCODONE HCl Immed Release 5 MG TABLET PO (21:19)
[2023-09-06 22:49] LABS: Glucose, Whole Blood 279 mg/dL (60-115)
[2023-09-07 01:03] VITALS: BP 136/78; PULSE 50; RESP 17; TEMP 36.6; O2SAT 97
[2023-09-07] MEDS: Insulin Glargine,Hum.rec.anlog 100 UNIT/ML 10 ML VIAL 15 UNIT SUBCUT (01:30)
--- NOTE | 2023-09-07 01:31 | PC.NURSE ---
pt medicated late d/t pyxis/[employer] issue. pt is having a snack at this time.
[2023-09-07] MEDS: oxyCODONE HCl Immed Release 5 MG TABLET PO (04:34)
[2023-09-07 05:41] VITALS: BP 132/66; PULSE 57; RESP 14; TEMP 36.7; O2SAT 96
[2023-09-07 06:58] LABS: Hematocrit 36.6 % (42.0-52.0); Hemoglobin 12.1 g/dl (14.0-18.0); Mean Corpuscular HGB Conc 33.1 g/dl (31.0-36.0); Mean Corpuscular Hemoglobin 28.3 pg (27.0-33.0); Mean Corpuscular Volume 85.7 fL (80.0-98.0); Mean Platelet Volume 11.3 fL (9.4-12.4); Red Blood Count 4.27 X10*6/uL (4.60-5.80); Red Cell Distribution Width 15.9 % (11.0-16.0); White Blood Count 3.7 X10*3/uL (4.8-10.8)
[2023-09-07 07:01] LABS: Platelet Count 95 X10*3/uL (160-400)
[2023-09-07 07:14] LABS: Anion Gap 11 (12-20); Blood Urea Nitrogen 16 mg/dL (9-16); Calcium 9.3 mg/dL (8.4-10.2); Carbon Dioxide 30 mmol/L (22-29); Chloride 104 mmol/L (96-108); Estimated Glomerular Filt Rate > 60; Glucose Random 161 mg/dL (60-115); Magnesium 1.7 mg/dL (1.6-2.6); Potassium 4.7 mmol/L (3.3-5.1); Sodium 140 mmol/L (135-145)
[2023-09-07 07:22] LABS: Glucose, Whole Blood 149 mg/dL (60-115)
--- NOTE | 2023-09-07 08:06 | PC.NURSE ---
Pt alert and oriented, breathing even and unlabored, skin warm and dry. Pt reports generalized pain, /10. Denies any new complaints. Remains on the surveillance system monitor.
[2023-09-07 08:21] LABS: Glucose, Whole Blood 164 mg/dL (60-115)
[2023-09-07] MEDS: Docusate Sodium 100 MG CAPSULE PO (08:21)
[2023-09-07] MEDS: Multivitamin TABLET 1 TAB PO (08:22)
[2023-09-07] MEDS: Escitalopram Oxalate 5 MG TABLET PO (08:22)
[2023-09-07 08:23] VITALS: BP 138/64
[2023-09-07] MEDS: lisinopriL 5 MG TABLET PO (08:23)
[2023-09-07] MEDS: Aspirin Enteric Coated 81 MG TABLET.DR PO (08:32)
[2023-09-07] MEDS: Atorvastatin Calcium 80 MG TABLET PO (08:32)
[2023-09-07] MEDS: Clopidogrel Bisulfate 75 MG TABLET 37.5 MG PO (08:33)
[2023-09-07 08:35] VITALS: BP 138/64; PULSE 52
[2023-09-07] MEDS: Finasteride 5 MG TABLET PO (08:35)
[2023-09-07] MEDS: 0.9 % Sodium Chloride Flush 3 ML SYRINGE IVFLUSH (08:36)
[2023-09-07 08:37] VITALS: BP 138/64
[2023-09-07] MEDS: Furosemide 20 MG/2 ML VIAL IVPUSH (08:37)
[2023-09-07] MEDS: Brimonidine Tartrate 0.2% Oph 5 ML BOTTLE 2 DROP EYE-BOTH (08:38)
[2023-09-07] MEDS: Loratadine 10 MG TABLET PO (08:39)
--- NOTE | 2023-09-07 08:44 | PC.NURSE ---
Metoprolol withheld due to HR in 50s with periodic drops into 40s. BP stable.
--- NOTE | 2023-09-07 10:20 | PC.NURSE ---
HR noted to drop into 30s and 20s while pt sleeping, confirmed via manual radial pulse. Pt easily aroused and denies any new complaints. HR does self correct to 40s and 50s. Admitting provider alerted, waiting for orders. Will continue to monitor.
--- NOTE | 2023-09-07 10:25 | PC.NURSE ---
cardiology at bedside at this time.
--- NOTE | 2023-09-07 11:20 | W.MHC.F2F ---
Service Date Service Date: 09/07/23 Encounter Date of encounter: 09/07/23 Reasons for Services Signs and symptoms assessed: CHF deconditioning Reason for long-term: medication management, medication treatment and teach disease management Reason for occupational therapy: home safety and mobility, therapeutic exercises, gait/transfer training, assess need for DME, ADL training and energy conservation MD Overseeing Care: Dari Larsen Homebound: Leaving the home is medically contraindicated at this time without the asist of a device and/or another person due th the listed conditions above and below. Reason homebound: unsteady gait / fall risk, shortness of breath with minimal effort, poor balance / fall risk, immunosuppression / infection risk and weakness related to hospital stay Certification: Based on the above findings, I certify that this patient is confined to the home and needs intermittent long-term care, physical therapy and/or speech therapy, or continues to need occupational therapy. The patient is under my care, and I have initiated the establishment of the plan of care. The patient will be followed by a physician who will periodically review the plan of care. Time Spent With Patient Time: Total time managing care of this patient today ____ minutes.
--- NOTE | 2023-09-07 11:22 | P.DS_ITS ---
DS: Providers Provider Date of Service: 09/07/23 Date of admission: 09/06/23 17:54 Date of discharge: 09/07/23 Primary care physician: Unknown Physician Consults: 09/06/23 14:41 Consult to Cardiology Stat Consulting Provider: [facility] Reason for consultation: sob 09/06/23 17:41 Consult to Hematology / Oncology Routine Consulting Provider: Luba Colmenares Reason for consultation: Anal carcinoma DS: Diagnosis Discharge Diagnosis (1) CHF exacerbation: Status: Acute (2) Acute on chronic HFrEF (heart failure with reduced ejection fraction): Status: Acute (3) Anal squamous cell carcinoma: Status: Acute (4) Multiple pulmonary nodules: Status: Acute DS: Summary Hospital Course Hospital Course: From the history and physical by the admitting hospitalist, PIERCE Moreland, 09/06/23: Pt is a 72-year-old female [sic] with a PMH significant for?rectal cancer s/p chemo and radiation (last treated 02/2023), CAD, carotid occlusive disease, chronic HFrEF s/p ICD, HTN, BPH, and insulin-dependent diabetes managed with ins ulin pump who presents to the ED from home for evaluation of MANJRAREZ and SOB x3 weeks. Patient recently was hospitalized from 08/21-08/26 dizziness, lightheadedness, and rectal pain. Underwent colonoscopy which found indurated and deep ulcerating lesion left lateral anal canal. Biopsy pathology showed poorly differentiated invasive squamous cell carcinoma involving ulcerated squamous mucosa. Patient presents today due to continued lightheadedness, dizziness, fatigue, and increased SOB and MANJARREZ x3 weeks. In short, patient reports he feels ?fatigued? and ?wiped out?. Patient reports he is having diff icult time ambulating and no longer can walk around his complex. Continues to have rectal pain, especially with defecation. Has noted some increased swelling in his legs for the past 2-3 weeks. Reports history of CHF, but has not had any issues since radiation last year. Reports some minor cough the past few days. Chronic chest pressure at baseline. No fever, chills, N/V, abd pain. In the ED pt was bradycardic as low as 40 and hypertensive up to 153/69. Labs were significant for leukopenia 3.9, H&H 11.7/35.8, BNP 1572, initial troponin 40.1 with repeat flat at 33.0. No electrolyte abnormalities. Renal function WNL. Hepatic function WNL. UA negative for UTI. CTA of chest no pulmonary emboli, but showed progression right apical traction bronchiectasis and scarring, and redemonstration of multiple left upper lobe nodules with largest 0.6 cm. EKG demonstrated sinus rhythm with frequent PVCs. Pt was treated with Lasix. Pt will be admitted to the hospital for treatment and further evaluation generalized weakness and deconditioning in setting of CHF exacerbation and resurgence of rectal cancer. He was admitted to the hospitalist service but boarded in the ED due to limited bed availability. He was diuresed with IV furosemide and improved quickly after diuresis of 3.5L of fluid. He was discharged with resumption of VNA services on furosemide 20 mg daily. He has scheduled follow-up with his steward/stewardess banquet, Dr Kranthi Ford at [facility], on 09/13/23. He should also follow up with his oncologist, Dr Luba Colmenares, this week regarding treatment options for anal squamous cell carcinoma and to discuss whether further workup of pulmonary nodules is warranted. Time Attestation Discharge Coordination Time (in mins): 35 Quality: Safe Use of Opioids Does Pt have an Active Cancer Diagnosis on the Problem List?: No Quality: Stroke Does the patient have a stroke diagnosis?: No Physical Exam Vital Signs: Vital Signs: Last Vital Signs Temp 98.1 F 09/07/23 05:41 Pulse 52 09/07/23 08:35 Resp 14 09/07/23 05:41 BP 138/64 09/07/23 08:37 Pulse Ox 96 09/07/23 05:41 O2 Del Method Room Air 09/07/23 05:41 BMI result Body Mass Index 24.1 Gen: in no acute distress HEENT: sclera anicteric, moist mucus membranes Neck: supple Lungs: clear to auscultation bilaterally Heart: regular rate and rhythm, no murmurs Abd: soft, non-tender, non-distended Ext: no edema Skin: warm/well-perfused Neuro: alert and oriented x3, no focal findings Psych: appropriate affect DS: Data Data Completed and Pending Completed studies during hospitalization [Text1]: Laboratory Results WBC 3.7 X10*3/uL (4.8-10.8) L 09/07/23 06:29 RBC 4.27 X10*6/uL (4.60-5.80) L 09/07/23 06: Hgb 12.1 g/dl (14.0-18.0) L 09/07/23 06: Hct 36.6 % (42.0-52.0) L 09/07/23 06: MCV 85.7 fL (80.0-98.0) 09/07/23 06: MCH 28.3 pg (27.0-33.0) 09/07/23 06: MCHC 33.1 g/dl (31.0-36.0) 09/07/23 06: RDW 15.9 % (11.0-16.0) 09/07/23 06: Plt Count 95 X10*3/uL (160-400) L 09/07/23 06: MPV 11.3 fL (9.4-12.4) 09/07/23 06: Immature Gran % (Auto) 0.5 % (0.0-0.4) H 09/06/23 10:15 Neut % (Auto) 76.5 % (45-73) H 09/06/23 10:15 Lymph % (Auto) 7.4 % (20-40) L 09/06/23 10:15 [place] % (Auto) 9.7 % (2-11) 09/06/23 10:15 Eos % (Auto) 4.9 % (0-4) H 09/06/23 10:15 Baso % (Auto) 1.0 % (0-2) 09/06/23 10:15 Lymph # (Auto) 0.3 X10*3/uL (1.2-4.9) L 09/06/23 10:15 [place] # (Auto) 0.4 X10*3/uL (0.1-1.2) 09/06/23 10:15 Eos # (Auto) 0.2 X10*3/uL (0.0-0.4) 09/06/23 10:15 Baso # (Auto) 0.0 X10*3/uL (0.0-0.2) 09/06/23 10:15 Abs Immat Gran (auto) 0.02 X10*3/uL (0.00-0.03) 09/06/23 10:15 Absolute Neuts (auto) 3.0 x10*3/uL (2.0-8.3) 09/06/23 10:15 Absolute Nucleated RBC 0.000 X10*3/uL (0.0-0.012) 09/07/23 06:29 Nucleated RBC % (auto) 0.0 /100WBC (0.0-0.2) 09/07/23 06:29 Hold Purple Top SEE NOTE 09/06/23 13:26 Sodium 140 mmol/L (135-145) 09/07/23 06:29 Potassium 4.7 mmol/L (3.3-5.1) 09/07/23 06:29 Chloride 104 mmol/L (96-108) 09/07/23 06:29 Carbon Dioxide 30 mmol/L (22-29) H 09/07/23 06:29 Anion Gap 11 (12-20) L 09/07/23 06:29 BUN 16 mg/dL (9-16) 09/07/23 06:29 Creatinine 0.84 mg/dL (0.5-1.4) 09/07/23 06:29 Estim Creat Clear Calc 91.0 09/07/23 06:29 Estimated GFR > 60 09/07/23 06:29 POC Glucose 164 mg/dL (60-115) H 09/07/23 08:09 Random Glucose 161 mg/dL (60-115) H 09/07/23 06:29 Calcium 9.3 mg/dL (8.4-10.2) 09/07/23 06:29 Magnesium 1.7 mg/dL (1.6-2.6) 09/07/23 06:29 Total Bilirubin 0.9 mg/dL (0.0-1.0) 09/06/23 10:15 AST 27 U/L (5-37) 09/06/23 10:15 ALT 30 U/L (0-40) 09/06/23 10:15 Alkaline Phosphatase 77 U/L (39-117) 09/06/23 10:15 Troponin I High Sens 33.0 ng/L (<3.5-35.0) 09/06/23 13:26 B-Natriuretic Peptide 1572 pg/mL (<100) H 09/06/23 10:15 Total Protein 6.2 g/dL (6.5-8.0) L 09/06/23 10:15 Albumin 3.8 g/dL (3.5-5.0) 09/06/23 10:15 Urine Color Yellow 09/06/23 13:26 Urine Appearance Clear 09/06/23 13:26 Urine pH 5.5 (5.0-9.0) 09/06/23 13:26 Ur Specific [place] >= 1.030 (1.005-1.025) H 09/06/23 13:26 Urine Protein 30 (1+) mg/dL (Neg-Trace) H 09/06/23 13:26 Urine Glucose (UA) Negative mg/dL (Negative) 09/06/23 13:26 Urine Ketones Negative mg/dL (Negative) 09/06/23 13:26 Urine Blood Negative (Negative) 09/06/23 13:26 Urine Nitrite Negative (Negative) 09/06/23 13:26 Ur Leukocyte Esterase Negative (Negative) 09/06/23 13:26 Urine RBC 0-2 /HPF (0-2) 09/06/23 13:26 Urine WBC 0-5 /HPF (0-5) 09/06/23 13:26 Ur Squamous Epith Cells 0-2 /HPF (0-2) 09/06/23 13:26 Calcium Oxalate Crystal Present 09/06/23 13:26 Urine Bacteria None Seen (None Seen) 09/06/23 13:26 Hyaline Casts 0-2 /LPF (0-2) 09/06/23 13:26 COVID-19 (TOM) Negative (Negative) 09/06/23 10:15 COVID-19 Clin Com See Note 09/06/23 10:15 Impressions Chest CTA 09/06/23 11:57 IMPRESSION: 1. No pulmonary emboli. 2. Right apical traction bronchiectasis and scarring, progressed from 11/08/2022. 3. Multiple left upper lobe nodules redemonstrated, largest measuring up to 0.6 cm. According to the UPDATED 2017 Fleischner Society recommendations, the advised follow-up imaging for multiple solid nodules, the largest measuring 6 mm or greater, is: LOW RISK PATIENT: CT at 3-6 months, then consider CT at 18-24 months. HIGH RISK PATIENT: CT at 3-6 months, then at 18-24 months. VTE: negative. Discharge Plan Discharge Anticipated Discharge Date/Time: 09/07/23 11:16 Patient Disposition: Home Health Service Discharge Diagnosis: CHF exacerbation anal squamous cell cancer multiple pulmonary nodules Referrals: Kranthi Ford DO [Physician] - 09/13/23 Luba Colmenares MD [Physician] - 1 Week Dari Larsen MD [Physician] - 1 Week Discharge Medications: New furosemide 20 mg tablet 20 mg PO DAILY Qty: 30 0RF Continued cetirizine 10 mg Tablet 10 mg PO DAILY metoprolol succinate 50 mg Tablet Extended Release 24 Hr 25 mg PO DAILY lisinopril 20 mg Tablet 5 mg PO DAILY clopidogrel 75 mg Tablet 37.5 mg PO DAILY aspirin 81 mg Tablet,Delayed Release (Dr/Ec) 81 mg PO DAILY docusate sodium 100 mg Capsule 100 mg PO BID rosuvastatin 20 mg Tablet 20 mg PO DAILY gabapentin 100 mg capsule 200 mg PO BEDTIME PRN (Reason: Muscle Spasm) escitalopram oxalate 5 mg tablet 5 mg PO DAILY multivitamin with folic acid [Daily-Camila (with folic acid)] 400 mcg tablet 1 tab PO DAILY (DME) subcutaneous insulin pump Misc MISCELLANEOUS oxycodone 5 mg Tablet 5 mg PO Q6H PRN (Reason: Pain, Severe (Pain Scale 7-10)) Qty: 12 0RF Rx Instructions: Partial Fill upon patient request. (DME) MiniMed 630G Insulin Pump Misc 1 ea subcut QIDACHS Qty: 1 0RF Rx Instructions: As Directed insulin lispro [Humalog U-100 Insulin] 100 unit/mL solution 90 unit subcut DAILY brimonidine 0.2 % Drops 2 drp OPHTHALMIC (EYE) BID finasteride [Proscar] 5 mg tablet 5 mg PO DAILY 90 Days Qty: 90 3RF Discharge Orders: Discharge Order (Routine); Ordered 09/07/23 Ordered By: Dmitry Paulino Diet: Low salt diet Activity on Discharge: As tolerated Stand Alone Forms: Patient Portal Discharge page Print Language: Nepali Care Plan Goals: cardiac health treatment of cancer Health Concerns: CHF exacerbation anal squamous cell cancer multiple pulmonary nodules Plan of Treatment: Low-sodium diet: less than 2000 mg of sodium daily. Weigh yourself daily and call your doctor if your weight goes up by more than 3 lb/day or 5 lb/week. Take furosemide 20 mg daily. Follow up with your steward/stewardess banquet, Dr Ford, as scheduled on 09/13/23. Follow up with your oncologist, Dr Colmenares, this week. You may require further imaging studies. Please follow up with your primary care doctor within 1 week. Return to the hospital if you experience recurrent or worsening symptoms. Assessment: See Discharge Summary.
--- NOTE | 2023-09-07 11:24 | P.PNCA_ITS ---
Subjective Subjective Date of Service: 09/07/23 Interval history: Seen and examined at bedside. No changes in dyspnea with diuresis. Physical Exam Vital Signs: Last Vital Signs Temp 98.1 F 09/07/23 05:41 Pulse 52 09/07/23 08:35 Resp 14 09/07/23 05:41 BP 138/64 09/07/23 08:37 Pulse Ox 96 09/07/23 05:41 O2 Del Method Room Air 09/07/23 05:41 BMI result Body Mass Index 24.1 GENERAL APPEARANCE: Frail, ill appearing. NECK: no carotid bruit, no jugular venous distention. SKIN: no suspicious lesions, warm and dry. HEART: no murmurs, regular rate and rhythm. LUNGS: clear to auscultation bilaterally. ABDOMEN: soft, nontender. EXTREMITIES: Mild edema. PERIPHERAL PULSES: equal. NEUROLOGIC: No gross deficits, AAO X 3 Objective Labs and Meds 09/07/23 06:29 09/07/23 06:29 Lab results: Laboratory Results - last 24 hr 09/06/23 09/06/23 09/06/23 10:15 13:26 18:13 WBC RBC Hgb Hct MCV MCH MCHC RDW Plt Count MPV Absolute Nucleated RBC Nucleated RBC % (auto) Hold Purple Top SEE NOTE Sodium Potassium Chloride Carbon Dioxide Anion Gap BUN Creatinine Estim Creat Clear Calc Estimated GFR POC Glucose 205 H Random Glucose Calcium Magnesium Troponin I High Sens 33.0 B-Natriuretic Peptide 1572 H Urine Color Yellow Urine Appearance Clear Urine pH 5.5 Ur Specific [place] >= 1.030 H Urine Protein 30 (1+) H Urine Glucose (UA) Negative Urine Ketones Negative Urine Blood Negative Urine Nitrite Negative Ur Leukocyte Esterase Negative Urine RBC 0-2 Urine WBC 0-5 Ur Squamous Epith Cells 0-2 Calcium Oxalate Crystal Present Urine Bacteria None Seen Hyaline Casts 0-2 09/06/23 09/06/23 09/07/23 20:22 22:45 06:29 WBC 3.7 L RBC 4.27 L Hgb 12.1 L Hct 36.6 L MCV 85.7 MCH 28.3 MCHC 33.1 RDW 15.9 Plt Count 95 L MPV 11.3 Absolute Nucleated RBC 0.000 Nucleated RBC % (auto) 0.0 Hold Purple Top Sodium 140 Potassium 4.7 Chloride 104 Carbon Dioxide 30 H Anion Gap 11 L BUN 16 Creatinine 0.84 Estim Creat Clear Calc 91.0 Estimated GFR > 60 POC Glucose 326 H 279 H Random Glucose 161 H Calcium 9.3 Magnesium 1.7 Troponin I High Sens B-Natriuretic Peptide Urine Color Urine Appearance Urine pH Ur Specific [place] Urine Protein Urine Glucose (UA) Urine Ketones Urine Blood Urine Nitrite Ur Leukocyte Esterase Urine RBC Urine WBC Ur Squamous Epith Cells Calcium Oxalate Crystal Urine Bacteria Hyaline Casts 09/07/23 09/07/23 07:17 08:09 WBC RBC Hgb Hct MCV MCH MCHC RDW Plt Count MPV Absolute Nucleated RBC Nucleated RBC % (auto) Hold Purple Top Sodium Potassium Chloride Carbon Dioxide Anion Gap BUN Creatinine Estim Creat Clear Calc Estimated GFR POC Glucose 149 H 164 H Random Glucose Calcium Magnesium Troponin I High Sens B-Natriuretic Peptide Urine Color Urine Appearance Urine pH Ur Specific [place] Urine Protein Urine Glucose (UA) Urine Ketones Urine Blood Urine Nitrite Ur Leukocyte Esterase Urine RBC Urine WBC Ur Squamous Epith Cells Calcium Oxalate Crystal Urine Bacteria Hyaline Casts Imaging Radiologist's impression: Impressions Chest CTA 09/06/23 11:57 IMPRESSION: 1. No pulmonary emboli. 2. Right apical traction bronchiectasis and scarring, progressed from 11/08/2022. 3. Multiple left upper lobe nodules redemonstrated, largest measuring up to 0.6 cm. According to the UPDATED 2017 Fleischner Society recommendations, the advised follow-up imaging for multiple solid nodules, the largest measuring 6 mm or greater, is: LOW RISK PATIENT: CT at 3-6 months, then consider CT at 18-24 months. HIGH RISK PATIENT: CT at 3-6 months, then at 18-24 months. VTE: negative. Progress Note: A&P Assessment and plan (1) MANJARREZ (dyspnea on exertion): Status: Acute Plan 72 male with chronic heart failure and CABG. Colon cancer s/p chemo/rad. Deconditioned. Clinically was not in CHF. Did not improve with IV duretics. PVCs-asymptomatic. Can DC and f/u with Dr Ford. Time Spent With Patient Time: Total time managing care of this patient today ____ minutes. Progress Note: Quality Stroke Does the patient have a stroke diagnosis?: No Procedures Date of Service Date of Service: 09/07/23
[2023-09-07 12:10] VITALS: BP 140/82; PULSE 50; RESP 18; TEMP 36.9; O2SAT 97
--- NOTE | 2023-09-07 12:49 | MHC.CM.PN ---
PT DISCHARGED PRIOR TO BEING SEEN BY CM PER EMR, PT ACTIVE WITH [facility] REFERRAL AND NOTICE OF DC SENT VIA [facility]
== END 2023-09-07 12:08 | disposition home health service (06) | DRG 291 ==
LOC: HO.ED 14:29 → HO.EDOVER 18:05 → HO.IMC 09-07 10:42 → HO.EDOVER 09-07 11:22
PROVIDERS: Physician Assistant; Admitting Provider Student in an Organized Health Care Education/Training Program; Emergency Provider Emergency Medicine Emergency Medical Services; Visit Provider Family Medicine
DX: I11.0 Hypertensive heart disease with heart failure (principal); I50.23 Acute on chronic systolic (congestive) heart failure; C19 Malignant neoplasm of rectosigmoid junction; J47.9 Bronchiectasis, uncomplicated; R91.8 Other nonspecific abnormal finding of lung field; I25.10 Atherosclerotic heart disease of native coronary artery without angina pectoris; N40.0 Benign prostatic hyperplasia without lower urinary tract symptoms; Z20.822 Contact with and (suspected) exposure to COVID-19; Z96.41 Presence of insulin pump (external) (internal); Z87.891 Personal history of nicotine dependence; Z95.810 Presence of automatic (implantable) cardiac defibrillator; Z95.1 Presence of aortocoronary bypass graft; Z79.4 Long term (current) use of insulin; Z79.02 Long term (current) use of antithrombotics/antiplatelets; Z79.82 Long term (current) use of aspirin; Z79.899 Other long term (current) drug therapy
CPT/HCPCS: 36415; 71275; 80048; 80053; 81001; 82947; 83735; 83880; 84484; 85025; 85027; 87635; 93005; 99285; J1650; J1940; Q9967

== ENCOUNTER → 2023-09-06 17:54 | Outpatient (BNV) | payer OTHER, SELFPAY | PROVIDERS: Admitting Provider Student in an Organized Health Care Education/Training Program; Emergency Provider Emergency Medicine Emergency Medical Services; Visit Provider Internal Medicine Cardiovascular Disease | DX: I49.3 Ventricular premature depolarization (principal) | CPT/HCPCS: 93010; 99223; 99232 ==

== ENCOUNTER → 2023-09-06 17:54 | Outpatient (BNV) | payer OTHER, SELFPAY | PROVIDERS: Admitting Provider Student in an Organized Health Care Education/Training Program; Emergency Provider Emergency Medicine Emergency Medical Services; Visit Provider Family Medicine | DX: I50.9 Heart failure, unspecified (principal); C21.0 Malignant neoplasm of anus, unspecified | CPT/HCPCS: 99223; 99239; G0180 ==

== ENCOUNTER 2023-09-16 16:49 | Emergency (ER) | payer OTHER, SELFPAY ==
[2023-09-16] VITALS (8 sets, daily range): BP systolic 107–168; BP diastolic 43–80; PULSE 87–101; RESP 14–20; TEMP 36.6–37.7; O2SAT 96–100; BMI 18.7
--- NOTE | 2023-09-16 | ECG_ITS ---
Test Reason : TACHYCARDIA Blood Pressure : / mmHG Vent. Rate : 102 BPM Atrial Rate : 102 BPM P-R Int : 196 ms QRS Dur : 122 ms QT Int : 386 ms P-R-T Axes : 060 -72 094 degrees QTc Int : 503 ms Sinus tachycardia Possible Left atrial enlargement Left axis deviation Left ventricular hypertrophy with QRS widening ( Wong product ) Nonspecific ST and T wave abnormality Abnormal ECG When compared with ECG of 06-SEP-2023 12:07, Vent. rate has increased Referred By: Generic ED Physician Electronically Signed By:LARS MOYER MD
--- NOTE | ~2023-09-16 | XR_ITS ---
EXAMINATION: XR CHEST CLINICAL INFORMATION: Tachycardia. COMPARISON: Chest 08/21/2023 TECHNIQUE: 2 views of the chest were obtained. FINDINGS: The lungs are well-expanded and clear of acute pneumonic process. Heart size and pulmonary vascularity is normal. There are dual pacer electrodes in right atrium and right ventricle. There is mild elevation of right hemidiaphragm. There are mediastinal sanju and median sternotomy sutures from previous CABG. No gross bony abnormality seen. XR/XR chest 2V IMPRESSION: 1. No acute cardiopulmonary process seen. 2. Mild elevation of right hemidiaphragm.. 3. No change from previous exam 08/22/2023.
[2023-09-16 17:17] LABS: Glucose, Whole Blood > 600 mg/dL (60-115)
--- NOTE | 2023-09-16 17:21 | PC.NURSE ---
Pt presents to ED via EMS from home, reports no insulin X4 days. Type 1 diabetic, has insulin pump but says he was having issues with it due to recent eye surgery was having trouble seeing. Reports symptoms of N/V/D, general weakness and malaise, dizziness, increase in urination, poor PO intake. Denies CP or SOB. EMS placed IV in right forearm 18G, administered approx 500 mL NS. Pt is alert and oriented but lethargic, breathing even and unlabored, skin pale and clammy. Placed on blueprinting machine operator, sinus tach. BGL assessed and reads HIGH , reassessed and reads HIGH again, QC performed and PASS. alerted.
--- NOTE | 2023-09-16 17:35 | ED_ITS ---
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 Patient states that he had 1 of his ?eyes done ?. He states difficulty seeing following this. He reports that the results he had difficulty extracting insulin from his bottle of medication at home. He states that he is gone without his insulin therapy for the last 4 days has resolved. Patient states that 1 day prior to presentation he began develop nausea and vomiting. He reports generalized weakness. He states no cough, dyspnea or chest pain. He states no headache. He states no loss of consciousness. He states no dysuria or urinary frequency/urgency. He reports a couple episodes of nonbloody loose stools. He states no new rashes. Per bedside RN, EMS initiated IV fluids and provide the patient with Zofran prior to arrival. Patient states no nausea at this time. Related Data Home Medications ?Medication ?Instructions ?Recorded ?Confirmed aspirin 81 mg tablet,delayed 81 mg PO DAILY 10/22/22 09/06/23 release cetirizine 10 mg tablet 10 mg PO DAILY 10/22/22 09/06/23 clopidogrel 75 mg tablet 37.5 mg PO DAILY 10/22/22 09/06/23 docusate sodium 100 mg capsule 100 mg PO BID 10/22/22 09/06/23 lisinopril 20 mg tablet 5 mg PO DAILY 10/22/22 09/06/23 metoprolol succinate 50 mg 25 mg PO DAILY 10/22/22 09/06/23 tablet,extended release 24 hr rosuvastatin 20 mg tablet 20 mg PO DAILY 10/22/22 09/06/23 escitalopram oxalate 5 mg tablet 5 mg PO DAILY 08/22/23 09/06/23 gabapentin 100 mg capsule 200 mg PO BEDTIME PRN Muscle Spasm 08/22/23 09/06/23 multivitamin with folic acid 400 1 tab PO DAILY 08/22/23 09/06/23 mcg tablet (Daily-Camila (with folic acid)) subcutaneous insulin pump 08/23/23 08/23/23 brimonidine 0.2 % eye drops 2 drp ophthalmic (eye) BID 09/06/23 09/06/23 insulin lispro 100 unit/mL 90 unit subcut DAILY 09/06/23 09/06/23 subcutaneous solution (Humalog U-100 Insulin) Previous Rx's ?Medication ?Instructions ?Recorded finasteride 5 mg tablet (Proscar) 5 mg PO DAILY 90 days #90 tabs 07/03/23 subcutaneous insulin pump (MiniMed #1 ea 08/26/23 630G Insulin Pump) furosemide 20 mg tablet 20 mg PO DAILY #30 tabs 09/07/23 oxycodone 5 mg tablet 5 mg PO Q6H PRN Pain, Severe (Pain 09/13/23 Scale 7-10) #12 tabs Allergies Allergy/AdvReac Type Severity Reaction Status Date / Time Sulfa (Sulfonamide Allergy Unknown Verified 09/16/23 17:11 Antibiotics) Review of Systems 2 Review of Systems: ROS as per [facility] Past Medical History Medical History 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 TIA (transient ischemic attack) Peripheral artery disease Carotid arterial disease HFrEF (heart failure with reduced ejection fraction) ICD (implantable cardioverter-defibrillator) in place Coronary artery disease Elevated cholesterol HTN (hypertension) Insulin pump in place Diabetes Surgical History History of intravascular stent placement History of left-sided carotid endarterectomy Hx of CABG Family History Family History Father Mother Social History Social History Household Members: None Housing: Assisted Living Facility Housing Other:: [facility] Do you presently have visiting nurse or other home services: Yes (housekeeping) Alcohol intake: former Comment: COUNTS CORRECT Patient Tobacco Use Status: Former Tobacco user Tobacco use type: Cigarette Years Smoked: 4 Smoked in Last 30 Days: No Second Hand Smoke Exposure: No Use of substances other than those prescribed or required for medical reasons: No Advance Directives: No Advance Directives Information Provided: No Do you have a plan to hurt others: No Plan service: Yes Current occupational status: retired Physical Exam ED Vital Signs: Vital Signs - 24 hr 09/16/23 17:06 09/16/23 17:07 09/16/23 17:43 Temperature 99.1 F 98 F 100 F Pulse Rate 100 96 Respiratory Rate 20 16 Blood Pressure 136/52 L 147/43 H Pulse Oximetry 98 100 Oxygen Delivery Method Room Air Room Air 09/16/23 18:30 09/16/23 19:58 Temperature 99.9 F 98.2 F Pulse Rate 101 H 101 H Respiratory Rate 15 16 Blood Pressure 123/54 L 132/63 Pulse Oximetry 98 99 Oxygen Delivery Method Room Air Room Air BMI result Body Mass Index 18.7 Gen: NAD, AOx3 HEENT: NCAT, EOMI, normal conjunctiva, tacky oral mucosa Skin: No rash, ecchymosis or crepitus to bilateral groin and lower extremities, increased skin turgor CV: RRR Pulm: CTAB, no increased work of breathing GI: Soft, NTND, no rebound, guarding or rigidity Neuro: Grossly non focal Medications Administered Generic Name Dose Route Start Last Admin Trade Name Freq PRN Reason Stop Dose Admin Insulin Human Regular 100 unit in 100 mls @ 7 mls/hr 09/16/23 19:30 09/16/23 19:45 Myxredlin IVCONT 7 unit/hr .[id number] RADHA 7 mls/hr Administration Protocol 7 UNIT/HR Discontinued Medications Generic Name Dose Route Start Last Admin Trade Name Freq PRN Reason Stop Dose Admin Sodium Chloride 1,000 mls @ 999 mls/hr 09/16/23 17:30 09/16/23 18:44 Ns IV 09/16/23 18:30 Infused .Q1H1M RADHA Infusion Lactated Ringer's 500 mls @ 999 mls/hr 09/16/23 19:15 09/16/23 20:23 Lr IV 09/16/23 19:45 Infused .Q31M RADHA Infusion Calcium Gluconate 1 gm in 50 mls @ 50 mls/hr 09/16/23 19:16 09/16/23 20:30 Calcium Gluconate IV 09/16/23 20:15 Infused ONCE ONE Infusion Insulin Human Regular 5 unit 09/16/23 19:19 09/16/23 19:42 Insulin Regular, Human 100 Unit/Ml 10 Ml Vial IVPUSH 09/16/23 19:20 5 unit ONCE ONE Administration Medical Decision Making Medical Decision Making [facility] Narrative: 1736 - this is a 72-year-old man with a past medical history of insulin- dependent diabetes mellitus who presents for evaluation of weakness, nausea, vomiting found to have hyperglycemia. He is mildly tachycardic in the low 100s with a rectal temperature of 100.0? degrees F. History is unrevealing of any symptoms suggestive of unifying bacterial infection preceding hyperglycemia. However, patient does have history lack of insulin therapy at home for several days now, which I suspect may be contributing to symptomatology and presentation here today. Patient does not quite meet sepsis criteria given lack of fever and source infection. Regardless, we will obtain screening labs including blood cultures though will withold antibiotics at this time in absence of infectious etiology and meeting sepsis criteria 2032 - I discussed patient's case with ICU fellow at [facility] who states that patient is not currently meeting ICU level of care at their institution and unfortunately the institution is not currently handling transfers for a lower level of care for this patient is a pathology. 2034 - I notified that by ED secondary that [facility] is not currently accepting transfers and we will attempt to transfer patient to [facility]. Patient's labs are reviewed and in my independent interpretation that they are consistent with diabetic ketoacidosis, hyperkalemia, high anion gap metabolic acidosis, lactic acidosis, acute kidney injury. Acute kidney injury and lactic acidosis are likely secondary to dehydration in the setting of osmotic diuresis due to hyperglycemia. Troponin is mildly elevated at 37.8, which I suspect is demand ischemia in the setting of diabetic ketoacidosis. Patient is provided 1 L IV normal saline. On reassessment he has not developed any signs or symptoms of fluid overload and for this reason the patient is provided additional 500 cc IV LR judiciously given history of heart failure with reduced ejection fraction. Patient is also provided calcium gluconate, 5 unit IV insulin regular given findings of hyperkalemia with electrocardiographic changes. He was subsequently started on insulin gtt. 2121 - I discussed patient's case and management with Dr. Egan at [facility] ([facility]) in [place], [place] who, given interval increase in troponin to 64 from previous and heparin therapy for treatment of NSTEMI request a repeat troponin 2 hours from his last prior to transfer. They state that if troponin is not significantly increasing/flat patient may subsequently be transferred. Transfer center requests call back prior to transfer. Patient is provided full dose aspirin, heparin bolus and initiated on heparin GTT. Repeat EKG does demonstrate lateral ST depressions and T-wave inversions anteriorly, but no STEMI. Patient has no chest pain or dyspnea. Repeat venous blood gas demonstrates pH of 7.18, pCO2 36, bicarb 14. Potassium decreased to 5.5. Lactic acid improving. Glucose improving. Care transition to Dr. Mas at 2133 with disposition pending repeat troponin and anticipated transfer to [facility]. Critical Care Time: A total of 75 minutes spent in direct patient care with coordinating critical resuscitation, procedures, reviewing records, discussing with consultants, reviewing labs, and/or managing patient. Admission/Observation Consideration of admission/observation: Escalation of care including admission/observation considered Consult Healthcare Provider Management of the patient was discussed with: Hospitalist Lab Data MDM Lab Attestation statement: I reviewed the patient's lab results. 09/16/23 17:41 09/16/23 20:34 Labs: Lab Results 09/16/23 09/16/23 09/16/23 Range/Units 17:07 17:40 17:41 WBC 8.5 (4.8-10.8) X10*3/uL RBC 4.98 (4.60-5.80) X10*6/uL Hgb 14.2 (14.0-18.0) g/dl Hct 42.9 (42.0-52.0) % MCV 86.1 (80.0-98.0) fL MCH 28.5 (27.0-33.0) pg MCHC 33.1 (31.0-36.0) g/dl RDW 15.5 (11.0-16.0) % Plt Count 117 L (160-400) X10*3/uL MPV 11.4 (9.4-12.4) fL Immature Gran % (Auto) 0.6 H (0.0-0.4) % Neut % (Auto) 92.2 H (45-73) % Lymph % (Auto) 1.6 L (20-40) % [place] % (Auto) 5.5 (2-11) % Eos % (Auto) 0.0 (0-4) % Baso % (Auto) 0.1 (0-2) % Lymph # (Auto) 0.1 L (1.2-4.9) X10*3/uL [place] # (Auto) 0.5 (0.1-1.2) X10*3/uL Eos # (Auto) 0.0 (0.0-0.4) X10*3/uL Baso # (Auto) 0.0 (0.0-0.2) X10*3/uL Abs Immat Gran (auto) 0.05 H (0.00-0.03) X10*3/uL Absolute Neuts (auto) 7.9 (2.0-8.3) x10*3/uL Absolute Nucleated RBC 0.000 (0.0-0.012) X10*3/uL Nucleated RBC % (auto) 0.0 (0.0-0.2) /100WBC Smear Tech's Comments VERIFIED PT (11.1-13.3) SEC INR (0.9-1.1) APTT 23.4 L (26.0-36.8) SEC VBG pH (7.32-7.43) VBG pCO2 mmHg VBG pO2 mmHg VBG HCO3 (22-26) mmol/L VBG O2 Saturation % VBG Base Excess mmol/L Sodium 126 L (135-145) mmol/L Potassium 6.3 H* D (3.3-5.1) mmol/L Chloride 85 L (96-108) mmol/L Carbon Dioxide 12 L (22-29) mmol/L Anion Gap 35 H (12-20) BUN 50 H (9-16) mg/dL Creatinine 2.52 H (0.5-1.4) mg/dL Estim Creat Clear Calc 26.0 Estimated GFR 25 POC Glucose > 600 H* (60-115) mg/dL Random Glucose 830 H* (60-115) mg/dL Lactic Acid 4.7 H* (0.5-2.0) mmol/L Lactic Acid F/U @ 2Hr (0.5-2.0) mmol/L Calcium 9.8 (8.4-10.2) mg/dL Magnesium 1.6 (1.6-2.6) mg/dL Total Bilirubin 1.1 H (0.0-1.0) mg/dL Direct Bilirubin 0.4 (0.0-0.5) mg/dL AST 17 (5-37) U/L ALT 18 (0-40) U/L Alkaline Phosphatase 86 (39-117) U/L Troponin I High Sens 37.8 H (<3.5-35.0) ng/L Total Protein 7.2 (6.5-8.0) g/dL Albumin 4.4 (3.5-5.0) g/dL Beta-Hydroxybutyrate 9.67 H (0.02-0.27) mmol/L Urine Color Urine Appearance Urine pH (5.0-9.0) Ur Specific [place] (1.005-1.025) Urine Protein (Neg-Trace) mg/dL Urine Glucose (UA) (Negative) mg/dL Urine Ketones (Negative) mg/dL Urine Blood (Negative) Urine Nitrite (Negative) Ur Leukocyte Esterase (Negative) Urine RBC (0-2) /HPF Urine WBC (0-5) /HPF Ur Squamous Epith Cells (0-2) /HPF Urine Bacteria (None Seen) Hyaline Casts (0-2) /LPF Influenza Type A (PCR) (Negative) Influenza Type B (PCR) (Negative) RSV RNA Qual (PCR) (Negative) SARS-CoV-2 RNA (RT-PCR) (Negative) 09/16/23 09/16/23 09/16/23 Range/Units 17:43 17:51 18:41 WBC (4.8-10.8) X10*3/uL RBC (4.60-5.80) X10*6/uL Hgb (14.0-18.0) g/dl Hct (42.0-52.0) % MCV (80.0-98.0) fL MCH (27.0-33.0) pg MCHC (31.0-36.0) g/dl RDW (11.0-16.0) % Plt Count (160-400) X10*3/uL MPV (9.4-12.4) fL Immature Gran % (Auto) (0.0-0.4) % Neut % (Auto) (45-73) % Lymph % (Auto) (20-40) % [place] % (Auto) (2-11) % Eos % (Auto) (0-4) % Baso % (Auto) (0-2) % Lymph # (Auto) (1.2-4.9) X10*3/uL [place] # (Auto) (0.1-1.2) X10*3/uL Eos # (Auto) (0.0-0.4) X10*3/uL Baso # (Auto) (0.0-0.2) X10*3/uL Abs Immat Gran (auto) (0.00-0.03) X10*3/uL Absolute Neuts (auto) (2.0-8.3) x10*3/uL Absolute Nucleated RBC (0.0-0.012) X10*3/uL Nucleated RBC % (auto) (0.0-0.2) /100WBC Smear Tech's Comments PT (11.1-13.3) SEC INR (0.9-1.1) APTT (26.0-36.8) SEC VBG pH 7.22 L (7.32-7.43) VBG pCO2 30 mmHg VBG pO2 46 mmHg VBG HCO3 12 L (22-26) mmol/L VBG O2 Saturation 62.0 % VBG Base Excess -13.4 mmol/L Sodium (135-145) mmol/L Potassium (3.3-5.1) mmol/L Chloride (96-108) mmol/L Carbon Dioxide (22-29) mmol/L Anion Gap (12-20) BUN (9-16) mg/dL Creatinine (0.5-1.4) mg/dL Estim Creat Clear Calc Estimated GFR POC Glucose (60-115) mg/dL Random Glucose (60-115) mg/dL Lactic Acid (0.5-2.0) mmol/L Lactic Acid F/U @ 2Hr (0.5-2.0) mmol/L Calcium (8.4-10.2) mg/dL Magnesium (1.6-2.6) mg/dL Total Bilirubin (0.0-1.0) mg/dL Direct Bilirubin (0.0-0.5) mg/dL AST (5-37) U/L ALT (0-40) U/L Alkaline Phosphatase (39-117) U/L Troponin I High Sens (<3.5-35.0) ng/L Total Protein (6.5-8.0) g/dL Albumin (3.5-5.0) g/dL Beta-Hydroxybutyrate (0.02-0.27) mmol/L Urine Color Yellow Urine Appearance Clear Urine pH 5.0 (5.0-9.0) Ur Specific [place] 1.025 (1.005-1.025) Urine Protein Trace (Neg-Trace) mg/dL Urine Glucose (UA) >=1000 H (Negative) mg/dL Urine Ketones 40 (Negative) mg/dL Urine Blood Negative (Negative) Urine Nitrite Negative (Negative) Ur Leukocyte Esterase Negative (Negative) Urine RBC 0-2 (0-2) /HPF Urine WBC 0-5 (0-5) /HPF Ur Squamous Epith Cells 3-5 (0-2) /HPF Urine Bacteria None Seen (None Seen) Hyaline Casts 3-5 (0-2) /LPF Influenza Type A (PCR) NEGATIVE (Negative) Influenza Type B (PCR) NEGATIVE (Negative) RSV RNA Qual (PCR) NEGATIVE (Negative) SARS-CoV-2 RNA (RT-PCR) NEGATIVE (Negative) 09/16/23 09/16/23 09/16/23 Range/Units 19:08 19:10 20:34 WBC (4.8-10.8) X10*3/uL RBC (4.60-5.80) X10*6/uL Hgb (14.0-18.0) g/dl Hct (42.0-52.0) % MCV (80.0-98.0) fL MCH (27.0-33.0) pg MCHC (31.0-36.0) g/dl RDW (11.0-16.0) % Plt Count (160-400) X10*3/uL MPV (9.4-12.4) fL Immature Gran % (Auto) (0.0-0.4) % Neut % (Auto) (45-73) % Lymph % (Auto) (20-40) % [place] % (Auto) (2-11) % Eos % (Auto) (0-4) % Baso % (Auto) (0-2) % Lymph # (Auto) (1.2-4.9) X10*3/uL [place] # (Auto) (0.1-1.2) X10*3/uL Eos # (Auto) (0.0-0.4) X10*3/uL Baso # (Auto) (0.0-0.2) X10*3/uL Abs Immat Gran (auto) (0.00-0.03) X10*3/uL Absolute Neuts (auto) (2.0-8.3) x10*3/uL Absolute Nucleated RBC (0.0-0.012) X10*3/uL Nucleated RBC % (auto) (0.0-0.2) /100WBC Smear Tech's Comments PT 12.6 (11.1-13.3) SEC INR 1.0 (0.9-1.1) APTT (26.0-36.8) SEC VBG pH (7.32-7.43) VBG pCO2 mmHg VBG pO2 mmHg VBG HCO3 (22-26) mmol/L VBG O2 Saturation % VBG Base Excess mmol/L Sodium 127 L (135-145) mmol/L Potassium 5.5 H (3.3-5.1) mmol/L Chloride 87 L (96-108) mmol/L Carbon Dioxide 12 L (22-29) mmol/L Anion Gap 34 H (12-20) BUN 50 H (9-16) mg/dL Creatinine 2.51 H (0.5-1.4) mg/dL Estim Creat Clear Calc 26.1 Estimated GFR 25 POC Glucose > 600 H* > 600 H* (60-115) mg/dL Random Glucose 808 H* (60-115) mg/dL Lactic Acid (0.5-2.0) mmol/L Lactic Acid F/U @ 2Hr 3.9 H* (0.5-2.0) mmol/L Calcium 9.7 (8.4-10.2) mg/dL Magnesium (1.6-2.6) mg/dL Total Bilirubin (0.0-1.0) mg/dL Direct Bilirubin (0.0-0.5) mg/dL AST (5-37) U/L ALT (0-40) U/L Alkaline Phosphatase (39-117) U/L Troponin I High Sens 60.4 H D (<3.5-35.0) ng/L Total Protein (6.5-8.0) g/dL Albumin (3.5-5.0) g/dL Beta-Hydroxybutyrate (0.02-0.27) mmol/L Urine Color Urine Appearance Urine pH (5.0-9.0) Ur Specific [place] (1.005-1.025) Urine Protein (Neg-Trace) mg/dL Urine Glucose (UA) (Negative) mg/dL Urine Ketones (Negative) mg/dL Urine Blood (Negative) Urine Nitrite (Negative) Ur Leukocyte Esterase (Negative) Urine RBC (0-2) /HPF Urine WBC (0-5) /HPF Ur Squamous Epith Cells (0-2) /HPF Urine Bacteria (None Seen) Hyaline Casts (0-2) /LPF Influenza Type A (PCR) (Negative) Influenza Type B (PCR) (Negative) RSV RNA Qual (PCR) (Negative) SARS-CoV-2 RNA (RT-PCR) (Negative) 09/16/23 09/16/23 09/16/23 Range/Units 20:43 20:45 20:59 WBC (4.8-10.8) X10*3/uL RBC (4.60-5.80) X10*6/uL Hgb (14.0-18.0) g/dl Hct (42.0-52.0) % MCV (80.0-98.0) fL MCH (27.0-33.0) pg MCHC (31.0-36.0) g/dl RDW (11.0-16.0) % Plt Count (160-400) X10*3/uL MPV (9.4-12.4) fL Immature Gran % (Auto) (0.0-0.4) % Neut % (Auto) (45-73) % Lymph % (Auto) (20-40) % [place] % (Auto) (2-11) % Eos % (Auto) (0-4) % Baso % (Auto) (0-2) % Lymph # (Auto) (1.2-4.9) X10*3/uL [place] # (Auto) (0.1-1.2) X10*3/uL Eos # (Auto) (0.0-0.4) X10*3/uL Baso # (Auto) (0.0-0.2) X10*3/uL Abs Immat Gran (auto) (0.00-0.03) X10*3/uL Absolute Neuts (auto) (2.0-8.3) x10*3/uL Absolute Nucleated RBC (0.0-0.012) X10*3/uL Nucleated RBC % (auto) (0.0-0.2) /100WBC Smear Tech's Comments PT (11.1-13.3) SEC INR (0.9-1.1) APTT (26.0-36.8) SEC VBG pH 7.18 L* (7.32-7.43) VBG pCO2 36 mmHg VBG pO2 46 mmHg VBG HCO3 14 L (22-26) mmol/L VBG O2 Saturation 67.0 % VBG Base Excess -13.1 mmol/L Sodium (135-145) mmol/L Potassium (3.3-5.1) mmol/L Chloride (96-108) mmol/L Carbon Dioxide (22-29) mmol/L Anion Gap (12-20) BUN (9-16) mg/dL Creatinine (0.5-1.4) mg/dL Estim Creat Clear Calc Estimated GFR POC Glucose > 600 H* > 600 H* (60-115) mg/dL Random Glucose (60-115) mg/dL Lactic Acid (0.5-2.0) mmol/L Lactic Acid F/U @ 2Hr (0.5-2.0) mmol/L Calcium (8.4-10.2) mg/dL Magnesium (1.6-2.6) mg/dL Total Bilirubin (0.0-1.0) mg/dL Direct Bilirubin (0.0-0.5) mg/dL AST (5-37) U/L ALT (0-40) U/L Alkaline Phosphatase (39-117) U/L Troponin I High Sens (<3.5-35.0) ng/L Total Protein (6.5-8.0) g/dL Albumin (3.5-5.0) g/dL Beta-Hydroxybutyrate (0.02-0.27) mmol/L Urine Color Urine Appearance Urine pH (5.0-9.0) Ur Specific [place] (1.005-1.025) Urine Protein (Neg-Trace) mg/dL Urine Glucose (UA) (Negative) mg/dL Urine Ketones (Negative) mg/dL Urine Blood (Negative) Urine Nitrite (Negative) Ur Leukocyte Esterase (Negative) Urine RBC (0-2) /HPF Urine WBC (0-5) /HPF Ur Squamous Epith Cells (0-2) /HPF Urine Bacteria (None Seen) Hyaline Casts (0-2) /LPF Influenza Type A (PCR) (Negative) Influenza Type B (PCR) (Negative) RSV RNA Qual (PCR) (Negative) SARS-CoV-2 RNA (RT-PCR) (Negative) Independent Interpretation I performed an independent interpretation of an: EKG and Plain X-Ray Interpretation: EKG demonstrates sinus tachycardia at 102 beats per minute, AR 196, QRS 122, QTC 508, peaked T-waves, no STEMI Repeat EKG demonstrates sinus rhythm 95 beats per minute, AR 192, QRS 100, QTC 505, T-wave inversion in lead V1 and V2, ST depression in lead V4-V6, no STEMI Chest x-ray demonstrates no focal infiltrate or consolidation. Radiology Impression Discussion of test interpretation with radiology: I have reviewed the radiologist's reading. Radiologist Impression: EKG demonstrates sinus tachycardia at 102 beats per minute, AR 196 QRS 122, QTC 503 IMPRESSION: 1. No acute cardiopulmonary process seen. 2. Mild elevation of right hemidiaphragm.. 3. No change from previous exam 08/22/2023. Dictated By: Cachorro Richardson MD Discharge Plan Discharge Clinical Impression: Diabetic ketoacidosis, Acute kidney injury, High anion gap metabolic acidosis, Elevated troponin, Thrombocytopenia, Acute hyperkalemia, Acidosis, lactic, Acute non-ST elevation myocardial infarction (NSTEMI) Patient Disposition: Still a Patient Prescriptions: No Action oxycodone 5 mg tablet 5 mg PO Q6H PRN (Reason: Pain, Severe (Pain Scale 7-10)) Qty: 12 0RF Rx Instructions: Partial Fill upon patient request. cetirizine 10 mg Tablet 10 mg PO DAILY metoprolol succinate 50 mg Tablet Extended Release 24 Hr 25 mg PO DAILY lisinopril 20 mg Tablet 5 mg PO DAILY clopidogrel 75 mg Tablet 37.5 mg PO DAILY aspirin 81 mg Tablet,Delayed Release (Dr/Ec) 81 mg PO DAILY docusate sodium 100 mg Capsule 100 mg PO BID rosuvastatin 20 mg Tablet 20 mg PO DAILY gabapentin 100 mg capsule 200 mg PO BEDTIME PRN (Reason: Muscle Spasm) escitalopram oxalate 5 mg tablet 5 mg PO DAILY multivitamin with folic acid [Daily-Camila (with folic acid)] 400 mcg tablet 1 tab PO DAILY (DME) subcutaneous insulin pump Misc MISCELLANEOUS (DME) MiniMed 630G Insulin Pump Misc 1 ea subcut QIDACHS Qty: 1 0RF Rx Instructions: As Directed insulin lispro [Humalog U-100 Insulin] 100 unit/mL solution 90 unit subcut DAILY brimonidine 0.2 % Drops 2 drp OPHTHALMIC (EYE) BID furosemide 20 mg tablet 20 mg PO DAILY Qty: 30 0RF finasteride [Proscar] 5 mg tablet 5 mg PO DAILY 90 Days Qty: 90 3RF Print Language: Lao
[2023-09-16] MEDS: 0.9 % Sodium Chloride 1,000 ML 999 ML IV (17:43)
[2023-09-16 18:02] LABS: VBG Base Excess -13.4 mmol/L; VBG HCO3 12 mmol/L (22-26); VBG pCO2 30 mmHg; VBG pH 7.22 (7.32-7.43); VBG pO2 46 mmHg
[2023-09-16 18:12] LABS: Lactic Acid 4.7 mmol/L (0.5-2.0)
[2023-09-16 18:14] LABS: Venous Blood Gas Refer to POC result
[2023-09-16 18:22] LABS: Imm Gran Abs Auto 0.05 X10*3/uL (0.00-0.03); Imm Gran Pct Auto 0.6 % (0.0-0.4); MANUAL DIFF FLAG SCAN; PLT CLUMP 1; Red Cell Distribution Width 15.5 % (11.0-16.0); SCAN SMEAR FLAG 1
[2023-09-16 18:24] LABS: Basophils Percent Auto 0.1 % (0-2); Hematocrit 42.9 % (42.0-52.0); Hemoglobin 14.2 g/dl (14.0-18.0); Lymphocytes Absolute Auto 0.1 X10*3/uL (1.2-4.9); Lymphocytes Percent Auto 1.6 % (20-40); Mean Corpuscular HGB Conc 33.1 g/dl (31.0-36.0); Mean Corpuscular Hemoglobin 28.5 pg (27.0-33.0); Mean Corpuscular Volume 86.1 fL (80.0-98.0); Mean Platelet Volume 11.4 fL (9.4-12.4); Monocytes Absolute Auto 0.5 X10*3/uL (0.1-1.2); Monocytes Percent Auto 5.5 % (2-11); Neutrophils Absolute Auto 7.9 x10*3/uL (2.0-8.3); Neutrophils Percent Auto 92.2 % (45-73); Red Blood Count 4.98 X10*6/uL (4.60-5.80)
[2023-09-16 18:26] LABS: Troponin-I High Sensitivity 37.8 ng/L (<3.5-35.0)
[2023-09-16 18:27] LABS: Partial Thromboplastin Time 23.4 SEC (26.0-36.8)
[2023-09-16 18:34] LABS: Influenza A PCR NEGATIVE (Negative); Influenza B PCR NEGATIVE (Negative); Resp Syncy Virus RNA Qual PCR NEGATIVE (Negative); SARS COV2 PCR INHOUSE NEGATIVE (Negative)
[2023-09-16 18:47] LABS: Platelet Count 117 X10*3/uL (160-400); White Blood Count 8.5 X10*3/uL (4.8-10.8)
[2023-09-16 18:48] LABS: SLIDE REVIEW VERIFIED
[2023-09-16 18:56] LABS: Appearance Urine Clear; Color Urine Yellow; Glucose Urine UA >=1000 mg/dL (Negative); Leukocyte Esterase Urine Negative (Negative); Nitrite Urine Negative (Negative); Specific Gravity - Urine 1.025 (1.005-1.025); UMIC TRIGGER UACC YES; Urine Blood Negative (Negative); Urine Ketones 40 mg/dL (Negative); Urine Protein Trace mg/dL (Neg-Trace)
[2023-09-16 18:57] LABS: Bacteria Urine None Seen (None Seen); RBC Urine 0-2 /HPF (0-2); WBC Urine 0-5 /HPF (0-5)
[2023-09-16 19:02] LABS: Alanine Aminotransferase 18 U/L (0-40); Albumin Level 4.4 g/dL (3.5-5.0); Alkaline Phosphatase 86 U/L (39-117); Anion Gap 35 (12-20); Aspartate Amino Transferase 17 U/L (5-37); Bilirubin Direct 0.4 mg/dL (0.0-0.5); Bilirubin Total 1.1 mg/dL (0.0-1.0); Blood Urea Nitrogen 50 mg/dL (9-16); Calcium 9.8 mg/dL (8.4-10.2); Carbon Dioxide 12 mmol/L (22-29); Chloride 85 mmol/L (96-108); Estimated Glomerular Filt Rate 25; Magnesium 1.6 mg/dL (1.6-2.6); Sodium 126 mmol/L (135-145); Total Protein 7.2 g/dL (6.5-8.0)
[2023-09-16 19:16] LABS: Beta-Hydroxybutyrate 9.67 mmol/L (0.02-0.27); Glucose Random 830 mg/dL (60-115); Potassium 6.3 mmol/L (3.3-5.1)
[2023-09-16 19:17] LABS: Glucose, Whole Blood > 600 mg/dL (60-115)
[2023-09-16 19:17] LABS: Glucose, Whole Blood > 600 mg/dL (60-115)
[2023-09-16] MEDS: Lactated Ringers 500 ML 999 ML IV (19:34)
[2023-09-16] MEDS: Calcium Gluconate/NaCl,Iso-Osm 1 GM/50 ML PLAST..BAG IV (19:38)
[2023-09-16] MEDS: Insulin Regular, Human 100 UNIT/ML 10 ML VIAL IVPUSH (19:42)
[2023-09-16] MEDS: Insulin Regular/NS 100 UNIT/100 ML PLAST..BAG 7 UNIT IVCONT (19:45)
[2023-09-16 19:46] LABS: Reflex Lactate? Lactic Acid Added
--- NOTE | 2023-09-16 20:46 | PC.NURSE ---
Addendum entered by Nato Fernandez 09/16/23 20:50: awaiting serum bgl. Original Note: poc blood glucose level reads >600. Dr. Suma pavon.
[2023-09-16 20:47] LABS: Prothrombin Time 12.6 SEC (11.1-13.3)
[2023-09-16 20:49] LABS: Glucose, Whole Blood > 600 mg/dL (60-115)
[2023-09-16 20:49] LABS: Glucose, Whole Blood > 600 mg/dL (60-115)
[2023-09-16 20:55] LABS: ~Lactic Acid-LAB USE ONLY 3.9 mmol/L (0.5-2.0)
[2023-09-16 20:56] LABS: Anion Gap 34 (12-20); Blood Urea Nitrogen 50 mg/dL (9-16); Calcium 9.7 mg/dL (8.4-10.2); Carbon Dioxide 12 mmol/L (22-29); Chloride 87 mmol/L (96-108); Creatinine Clr Calc Pharmacy 26.1; Estimated Glomerular Filt Rate 25; Potassium 5.5 mmol/L (3.3-5.1); Sodium 127 mmol/L (135-145)
[2023-09-16 20:59] LABS: Troponin-I High Sensitivity 60.4 ng/L (<3.5-35.0)
--- NOTE | 2023-09-16 21:02 | ECG_ITS ---
Test Reason : ELEVATED TROPONIN Blood Pressure : / mmHG Vent. Rate : 095 BPM Atrial Rate : 095 BPM P-R Int : 192 ms QRS Dur : 100 ms QT Int : 402 ms P-R-T Axes : 077 -79 085 degrees QTc Int : 505 ms Normal sinus rhythm Possible Left atrial enlargement Left axis deviation Minimal voltage criteria for LVH, may be normal variant ( Wong product ) Septal infarct , age undetermined Prolonged QT Abnormal ECG When compared with ECG of 16-SEP-2023 17:19, QRS duration has decreased ST no longer elevated in Anterior leads Referred By: Zaire Moise Electronically Signed By:LARS MOYER MD
[2023-09-16 21:10] LABS: VBG Base Excess -13.1 mmol/L; VBG HCO3 14 mmol/L (22-26); VBG pCO2 36 mmHg; VBG pH 7.18 (7.32-7.43); VBG pO2 46 mmHg
[2023-09-16 21:13] LABS: Venous Blood Gas Refer to POC result
[2023-09-16] MEDS: Heparin Sodium,Porcine/1/2NS 25,000 UNIT/250 ML IV.SOLN 7.91 UNIT IVCONT (21:40)
[2023-09-16] MEDS: Heparin Sodium,Porcine 5,000 UNIT/ML VIAL 4000 UNIT IVPUSH (21:42)
[2023-09-16] MEDS: Aspirin 81 MG TAB.CHEW 324 MG PO (21:42)
[2023-09-16] MEDS: Lactated Ringers 500 ML 110 ML IV (21:45)
[2023-09-16 21:51] LABS: Glucose, Whole Blood > 600 mg/dL (60-115)
[2023-09-16 22:12] LABS: VBG Base Excess -8.5 mmol/L; VBG HCO3 17 mmol/L (22-26); VBG pCO2 36 mmHg; VBG pH 7.28 (7.32-7.43); VBG pO2 43 mmHg
--- NOTE | 2023-09-16 22:12 | PC.NURSE ---
nurse to nurse report given to Pedro NGUYEN at [facility] ICU [phone].
[2023-09-16 22:15] LABS: Hematocrit 40.5 % (42.0-52.0); Hemoglobin 13.8 g/dl (14.0-18.0); Mean Corpuscular HGB Conc 34.1 g/dl (31.0-36.0); Mean Corpuscular Hemoglobin 28.5 pg (27.0-33.0); Mean Corpuscular Volume 83.7 fL (80.0-98.0); Mean Platelet Volume 10.3 fL (9.4-12.4); Platelet Count 108 X10*3/uL (160-400); Red Blood Count 4.84 X10*6/uL (4.60-5.80); Red Cell Distribution Width 15.4 % (11.0-16.0); White Blood Count 9.3 X10*3/uL (4.8-10.8)
[2023-09-16 22:16] LABS: Venous Blood Gas Refer to POC result
[2023-09-16 22:31] LABS: Anion Gap 29 (12-20); Blood Urea Nitrogen 50 mg/dL (9-16); Calcium 9.7 mg/dL (8.4-10.2); Carbon Dioxide 16 mmol/L (22-29); Chloride 89 mmol/L (96-108); Creatinine Clr Calc Pharmacy 25.5; Estimated Glomerular Filt Rate 27; Glucose Random 733 mg/dL (60-115); Potassium 4.6 mmol/L (3.3-5.1); Sodium 129 mmol/L (135-145)
[2023-09-16 22:37] LABS: Reflex Lactate? 2 Y
[2023-09-16 22:38] LABS: Troponin-I High Sensitivity 605.8 ng/L (<3.5-35.0)
--- NOTE | 2023-09-16 22:50 | PC.NURSE ---
late entry insulin drip started 1944 per jun. insulin drip titration delay d/t waiting serum bgl, titrated 2135 per jun. insulin drip titrated 8 per jun; repeat serum bgl ordered for 2337. heparin drip started 2139. pt tolerated po aspirin per jun 2141. 2152 pt appeared altered, answering questions appropriately however speaking of scattered thoughts, reaching for something in the air, pt appeared lethargic. Dr. Mas notified. order for ABG and BMP obtained. when entering room pt return back to baseline. MD at bedside. hold off on abg at that time. labs drawn and sent to lab. pt is now axox3 speaking full clear sentences. vss. pt denies cp/sob/n/v/d. awaiting transport to [facility].
--- NOTE | 2023-09-16 23:57 | PC.NURSE ---
awaiting bgl for insulin titration.
--- NOTE | 2023-09-17 | ECG_ITS ---
Test Reason : CHEST PAIN Blood Pressure : / mmHG Vent. Rate : 100 BPM Atrial Rate : 100 BPM P-R Int : 196 ms QRS Dur : 096 ms QT Int : 398 ms P-R-T Axes : 065 -68 081 degrees QTc Int : 513 ms Normal sinus rhythm Possible Left atrial enlargement Left axis deviation Minimal voltage criteria for LVH, may be normal variant ( Wong product ) Septal infarct (cited on or before 16-SEP-2023) Prolonged QT Abnormal ECG When compared with ECG of 16-SEP-2023 21:14, No significant change was found Referred By: Tabitha Mas Electronically Signed By:LARS MOYER MD
[2023-09-17 00:10] LABS: Anion Gap 25 (12-20); Blood Urea Nitrogen 49 mg/dL (9-16); Calcium 9.7 mg/dL (8.4-10.2); Carbon Dioxide 19 mmol/L (22-29); Chloride 90 mmol/L (96-108); Creatinine Clr Calc Pharmacy 26.5; Estimated Glomerular Filt Rate 28; Glucose Random 630 mg/dL (60-115); Potassium 4.2 mmol/L (3.3-5.1); Sodium 130 mmol/L (135-145); ~Lactic Acid-LAB USE ONLY 3.8 mmol/L (0.5-2.0)
--- NOTE | 2023-09-17 00:30 | PC.NURSE ---
pt now c/o cp, ponting to L. chest, pt reports it to be a 5/10. hiccupping noted. Dr. bhakta made aware. repeat ekg ordered and being obtained now.
[2023-09-17 00:31] VITALS: BP 195/86; PULSE 100; RESP 12; O2SAT 96
[2023-09-17] MEDS: Magnesium Sulfate/H2O 2 GM/50 ML PIGGYBACK IV (00:52)
--- NOTE | 2023-09-17 00:56 | PC.NURSE ---
pt refused morphine, requested oxycodone. Dr. Mas made aware. aware of bp.
[2023-09-17 01:06] LABS: Glucose, Whole Blood 479 mg/dL (60-115)
--- NOTE | 2023-09-17 01:34 | PC.NURSE ---
poc 479, insulin titrated per jun. report given to [facility] pt axox4 at transport, nad, pt verbalizes understanding plan of care.
[2023-09-17 01:36] VITALS: BP 195/86; PULSE 100; RESP 12; TEMP 37.2; O2SAT 96
--- NOTE | 2023-09-17 01:38 | PC.NURSE ---
mag infusion completed at [address] bhakta verbal order.
[2023-09-17 07:31] LABS: Glucose, Whole Blood > 600 mg/dL (60-115)
[2023-09-17 08:00] LABS: Glucose Random 808 mg/dL (60-115)
== END 2023-09-17 01:38 | disposition short-term general hospital (02) ==
PROVIDERS: Emergency Medicine; Emergency Provider Emergency Medicine; PCP Internal Medicine
DX: I21.4 Non-ST elevation (NSTEMI) myocardial infarction (principal); E11.10 Type 2 diabetes mellitus with ketoacidosis without coma; N17.8 Other acute kidney failure; E87.20 Acidosis, unspecified; R79.89 Other specified abnormal findings of blood chemistry; D69.6 Thrombocytopenia, unspecified; E87.5 Hyperkalemia; E11.65 Type 2 diabetes mellitus with hyperglycemia; Z91.148 Patient's other noncompliance with medication regimen for other reason; I10 Essential (primary) hypertension; I11.0 Hypertensive heart disease with heart failure; I50.23 Acute on chronic systolic (congestive) heart failure; E78.00 Pure hypercholesterolemia, unspecified; C20 Malignant neoplasm of rectum; C21.0 Malignant neoplasm of anus, unspecified; Z86.73 Personal history of transient ischemic attack (TIA), and cerebral infarction without residual deficits; Z79.82 Long term (current) use of aspirin; Z79.4 Long term (current) use of insulin; Z79.899 Other long term (current) drug therapy; Z79.02 Long term (current) use of antithrombotics/antiplatelets; Z87.891 Personal history of nicotine dependence; Z96.41 Presence of insulin pump (external) (internal); Z03.818 Encounter for observation for suspected exposure to other biological agents ruled out
CPT/HCPCS: 0241U; 36415; 71046; 80048; 80076; 81001; 82010; 82803; 82947; 83605; 83735; 84484; 85025; 85027; 85610; 85730; 87040; 93005; 96361; 96365; 96366; 96367; 96375; 99285; J0613; J1644; J3475; J7120

== ENCOUNTER → 2023-09-16 17:19 | Outpatient (BNV) | payer OTHER, SELFPAY | PROVIDERS: Emergency Provider Emergency Medicine; PCP Internal Medicine; Visit Provider Internal Medicine Cardiovascular Disease | DX: R94.31 Abnormal electrocardiogram [ECG] [EKG] (principal) | CPT/HCPCS: 93010 ==

== ENCOUNTER → 2023-09-17 00:30 | Outpatient (BNV) | payer OTHER, SELFPAY | PROVIDERS: Emergency Provider Emergency Medicine; PCP Internal Medicine; Visit Provider Internal Medicine Cardiovascular Disease | DX: I45.81 Long QT syndrome (principal) | CPT/HCPCS: 93010 ==